=== PATIENT | female | born 1930 | race Caucasian/White ===

== ENCOUNTER 2018-04-12 10:53 | Inpatient (IN) | payer MEDICARE ==
[2018-04-12] VITALS (28 sets, daily range): BP systolic 82–138; BP diastolic 30–53
[~2018-04-12] VITALS: Ht 152.4 cm; Wt 48.1 kg
[~2018-04-12 10:53] MED LIST: ACET-2605 GT; ACET-868 GT; AMIN30LI2 PO; AMLO5TAB4 GT; ASCO500T9 PO; ASPI-1152 PO; BISA10SU8 RC; ENOX40DI SQ; FAMO-130 GT; FLUC200T PO; GUAI600T53 PO; LACT-209 GT; LEVO25TA7 PO; MAGN400O6 PO; METO5SOL2 GT; MICO45CR11 VG; MULT-447 GT; NA P133E RC; RISP0.253 GT; RIVA1.5C7 PO; SENN-168 GT; ZINC220C8 GT
[2018-04-12] MEDS ORDERED: ACETAMINOPHEN 650 MG/SUPP.RECT RC ONE ×2 (11:01→11:30)
[2018-04-12 11:27] LABS: BASOPHILS # (AUTO) 0.2 /CMM (0.0-0.2); BASOPHILS % (AUTO) 0.6 % (0.0-2.0); EOSINOPHILS % (AUTO) 0.1 % (0.0-6.0); HEMATOCRIT 30 % (33-45); HEMOGLOBIN 9.8 g/dL (11.5-14.8); LYMPHOCYTES # (AUTO) 0.3 /CMM (0.8-4.8); LYMPHOCYTES % (AUTO) 1.1 % (20.0-44.0); MEAN CORPUSCULAR HGB CONC 32 g/dl (31.0-36.0); MEAN CORPUSCULAR VOLUME 84 fL (82-100); MONOCYTES # (AUTO) 1.5 /CMM (0.1-1.30); MONOCYTES % (AUTO) 5.4 % (2.0-12.0); NEUTROPHILS # (AUTO) 26.4 /CMM (1.8-8.9); NEUTROPHILS % (AUTO) 92.8 % (43.0-81.0); PLATELET COUNT (AUTO) 617 /CMM (150-450); RED BLOOD CELL COUNT(AUTO) 3.63 MIL/uL (4.0-5.2); WHITE BLOOD COUNT (AUTO) 28.4 K/uL (4.3-11.0)
[2018-04-12] MEDS ORDERED: ALBUTEROL FS 2.5 MG/3 ML VIAL.NEB CONTNEB ONE (11:30)
[2018-04-12] MEDS ORDERED: IV NS 0.9% 1,000 ML BAG IV ONE ×2 (11:30)
[2018-04-12] MEDS ORDERED: CEFTRIAXONE 1GM BAG (ER ONLY) 50 ML IV ONE ×2 (11:30→11:38)
[2018-04-12] MEDS ORDERED: LORAZEPAM INJ 2 MG/ML VIAL IV ONE ×2 (11:30→12:00)
[2018-04-12] MEDS ORDERED: ALBUTEROL FS 2.5 MG/0.5 ML VIAL.NEB ONE (11:32)
[2018-04-12 11:37] LABS: CALCIUM, SERUM 8.4 mg/dL (8.5-10.1); CARBON DIOXIDE 27 mmol/L (21-32); CHLORIDE 102 mmol/L (98-107); CREATININE 0.9 mg/dL (0.6-1.3); GLUCOSE 137 mg/dL (74-106); POTASSIUM 4.4 mmol/L (3.5-5.1); SODIUM SERUM 138 mmol/L (136-145); UREA NITROGEN, BLOOD 34 mg/dL (7-18)
[2018-04-12] MEDS ORDERED: LORAZEPAM INJ 2 MG/ML VIAL ONE ×2 (11:39→11:48)
[2018-04-12 11:43] LABS: ALANINE AMINOTRANSFERASE 26 U/L (12-78); ALBUMIN 2.7 g/dL (3.4-5.0); ALKALINE PHOSPHATASE 109 U/L (46-116); ASPARTATE AMINOTRANSFERASE 24 U/L (15-37); BILIRUBIN,DIRECT 0.1 mg/dL (0.0-0.2); BILIRUBIN,TOTAL 0.4 mg/dL (0.2-1.0); TOTAL PROTEIN, SERUM 7.1 g/dL (6.4-8.2)
[2018-04-12 11:47] LABS: APPEARANCE,URINE Clear (CLEAR); BILIRUBIN,URINE Negative (NEGATIVE); BLOOD, URINE Small Ery/uL (NEGATIVE); COLOR,URINE Yellow (YELLOW); KETONES,URINE Negative (NEGATIVE); LEUKOCYTE ESTERASE ,URINE Small (NEGATIVE); NITRITE, URINE Negative (NEGATIVE); PH,URINE 7.5 (5.0-8.0); PROTEIN,URINE 30 mg/dl (NEGATIVE); UGLUCOSE Negative (NEGATIVE); UROBILINOGEN,URINE 0.2 EU/dL (0.2)
[2018-04-12 11:49] LABS: BACTERIA,URINE Few /HPF (None Seen); SQUAMOUS EPITHELIAL CELL,UR Few /HPF (None Seen)
[2018-04-12 12:04] LABS: ABG BASE EXCESS -2.6 mmol/L; ABG OXYGEN SATURATION 94.4 % (92.0-98.5); ABG PCO2 31.1 mmHg (35.0-45.0); ABG PH 7.446 (7.350-7.450); AaDO2 170.4 mmHg; MetHb 0.8 % (0.0-1.5); O2Hb 93.6 % (94.0-97.0); SITE, ABG Left Brachial; VENT MODE, BG 5 L/M VIA HHN
[2018-04-12] MEDS ORDERED: FERR325T23 GT (12:11)
[2018-04-12] MEDS ORDERED: CRAN3875 GT (12:11)
[2018-04-12] MEDS ORDERED: LEVO50TA8 GT (12:15)
--- NOTE | 2018-04-12 12:22 | NUR ---
PT BROUGHT IN FROM ASSISTED BY PARAMEDICS FOR RESPIRATORY DISTRES AND AMS. PT HAS 18G IN LEFT FORE ARM AND 20G IN RIGHT FORE ARM ALL LABS DRAWN AND SENT INCLUDING URINE AND BLOOD CULTURES WITH TYPE AND SCREEN. PT HAD 16 FR LANG PLACED WITH 50 CC CLEAR YELLOW URINE INITIAL OUTPUT. PT GIVEN 4 LITERS OF NORMAL SALINE COMPLETED AND ABG DONE WELL. CURRENTLY PT ON NRM AT 15 LPM. ROLLER PICKER 96 NSR. POCT 190 IN FIELD. PT WAS TACHYCARDIIC INITIALLY 140'S RESPIRATION ARE GASPING WITH ASSORY MUSCLE USAGE . NOTIFIED OF PT RESPIRATORY STATUS.
[2018-04-12] MEDS ORDERED: LACT-96 GT (12:31)
--- NOTE | 2018-04-12 12:32 | NUR ---
PT ROOM AIR SATURATION WAS 80% AND DECREASING IMPROVED AFTER NRM PLACED TO 98%.
--- NOTE | 2018-04-12 12:43 | NUR ---
CALLED EPIC TO [facility]ITAL[facility]
[2018-04-12] MEDS ORDERED: methylPREDNISolone SOD SUCC 125 MG/2ML VIAL ONE (13:02)
--- NOTE | 2018-04-12 13:04 | NUR ---
LANG RECHECKED URINARY OUT PUT TOTAL SINCE ADMISSION IS 200ML PT GOING TO CT SCANN RN REPORT GIVEN TO SUDHEER PT ADMITTED TO ROOM 116 ADMITTING MD GUAN
[2018-04-12] MEDS ORDERED: ACETAMINOPHEN 325 MG TABLET MC PRN (13:30)
[2018-04-12] MEDS ORDERED: methylPREDNISolone SOD SUCC 125 MG/2ML VIAL IV ONE (13:30)
[2018-04-12] MEDS ORDERED: ONDANSETRON HCL/PF 4 MG/2 ML VIAL IVP PRN (13:30)
[2018-04-12] MEDS ORDERED: ZOLPIDEM TARTRATE 5 MG TABLET PO PRN (13:30)
[2018-04-12] MEDS ORDERED: NA PHOS,M-B/NA PHOS,DI-BA 1 EA ENEMA RC PRN (13:30)
[2018-04-12] MEDS ORDERED: MAG HYDROX/AL HYDROX/SIMETH 30 ML UDC PO PRN (13:30)
[2018-04-12] MEDS ORDERED: Z GUARD REMEDY 2 OZ OINT TP PRN (13:30)
[2018-04-12] MEDS ORDERED: MAGNESIUM HYDROXIDE 30 ML UDC PO PRN ×2 (13:30)
[2018-04-12] MEDS ORDERED: BISACODYL SUPP (10 MG) 10 MG/SUPP.RECT SUPP.RECT RC PRN (13:30)
--- NOTE | 2018-04-12 13:30 | NUR ---
RECEIVED REPORT FORM TOSIN RECEIVED PATIENT ON 15 L NONREBREATHER MASK SINUS RHYTHM ON TELE MONITOR WITH HR OF 90S
[2018-04-12] MEDS: IV NS 0.9% 1,000 ML IV PRN (13:49)
[2018-04-12 13:59] LABS: ABG BASE EXCESS -5.6 mmol/L; ABG OXYGEN SATURATION 98.8 % (92.0-98.5); ABG PCO2 32.1 mmHg (35.0-45.0); ABG PH 7.385 (7.350-7.450); AaDO2 365.9 mmHg; COHb 0.1 % (0.5-1.5); MetHb 1.2 % (0.0-1.5); O2Hb 97.5 % (94.0-97.0); SITE, ABG Right Brachial; VENT MODE, BG NON REBREATHER
[2018-04-12] MEDS ORDERED: ACETAMINOPHEN 650 MG/20.3 ML UDC GT PRN (14:00)
--- NOTE | 2018-04-12 14:00 | NUR ---
RECEIVED PATIENT FROM ER [id number] PATIENT ON 15 L NONREBREATHER MASK. NONLABORED BREATHING NOTED WELL PERIODS OF APNEA WITH RR RANGING FROM 9-12 SPO2 AT 100% PATIENT NONAROUSABLE TO NAME, TOUCH, OR LIGHT PAIN PUPILS REACTIVE TO LIGHT PATIENT WITHDRAWING LOWER EXTREMITIES TO DEEP PAIN
[2018-04-12] MEDS ORDERED: FEE PK DOSING 1 MIN EA MC ONE (14:18)
--- NOTE | 2018-04-12 14:28 | NUR ---
PER DR BERMUDEZ, TRANSFER TO ICU FOR BP MONITORING DR BERMUDEZ NOTIFIED OF BP TREND WELL IV FLUIDS GIVEN TO PATIENT SINCE ARRIVAL TO UNIT WELL IV FLUIDS ADMINISTERED IN ER
--- NOTE | 2018-04-12 14:50 | NUR ---
AT: 1350 -BOLUS OF NS AT 250 ML/HOUR INITIATED. SEE IV SPREADSHEET WELL VS SPREADSHEET DR DELEON AND DR BERMUDEZ NOTIFIED
--- NOTE | 2018-04-12 15:00 | NUR ---
PATIENT TRANSFERRED TO ICU WITH ALL BELONGINGS PER ORDERS PATIENT SINUS RYTHM ON TELE MONITOR THROUGHOUT TRANSFER REPORT GIVEN TO DENISE HUERTA
[2018-04-12] MEDS: PIPERACILLIN /TAZOBACTAM 3.375 G in IV D5W 100 ML IV SCH ×2 (16:25→23:00)
[2018-04-12] MEDS: VANCOMYCIN 0.75 GM in IV D5W 250 ML IV SCH (16:25)
[2018-04-12] MEDS ORDERED: METOCLOPRAMIDE HCL 10 MG/10 ML UDC GT SCH (18:00)
[2018-04-12] MEDS ORDERED: PIPERACILLIN /TAZOBACTAM 4.5 G in IV D5W 50 ML IV SCH (18:00)
--- NOTE | 2018-04-12 18:45 | NUR ---
RN ADMITTING NOTES: 1430H Rec'd pt from Betzy HUERTA. Pt transferred via bed accompanied by CN. Per report, pt has been hypotensive at 80's. Pt is lethargic. On NC at 2lpm, sating at 98%. On telemonitor, SR. Has GT, clamped at this time, noted gastric residual 5cc. Wound photos taken & placed in the chart, ordered wound consult & KCI mattress. Has R hand G20 & LFA G18, patent & intact w/ no s/sx of infection/infiltration. BRADLEY Banks came & inserted MACY Midline as per Dr. Gaona. Has FC patent & intact. Pt seen & examined by Dr. Ruano & Martha, HUMAN RESOURCES PSYCHOLOGIST. Re: diet, Dr. Gaona was notified that pt has GT & still is lethargic, per MD may order NPO except meds. Belongings at bedside. Pt kept well rested. Needs attended. Bed kept low & in locked pos. Call light w/in reach. WIll endorse to PM RN for ARNOL.
--- NOTE | 2018-04-12 19:30 | NUR ---
Received report from day shift RN patient on semi fowlers position lethargic responsive only to painful stimuli by grimacing and withdrawal.SR with BBB and occasional PAC's.Normotensive. Afebrile.Respiration even and unlabored.O2 3L NC on with SPO2 100%.Maintained on NPO status with GT clamped.No residual noted.Abdomen soft BS active.FC to gravity drainage draining clear yellow urine.IVF NS infusing to MACY Midline site intact.Turned and repositioned.No distress noted.
[2018-04-12] MEDS: IPRATROPIUM NEB FS 0.5 MG/2.5 ML AMPUL.NEB NEB SCH (19:36)
[2018-04-12] MEDS: ALBUTEROL HALF STRENGTH 1.25 MG/3 ML VIAL.NEB NEB SCH (19:37)
[2018-04-12] MEDS: RIVASTIGMINE TARTRATE 1.5 MG CAPSULE PO SCH (21:00)
[2018-04-12] MEDS: SENNOSIDES 8.6 MG TABLET GT SCH (21:30)
--- NOTE | 2018-04-12 22:00 | NUR ---
Patient incontinent of BM soft brown.Perineal care done.Bed bath done and complete linens changed.KCI mattress applied.Turned and repositioned to comfort offloading pressure points. Patient remains lethargic.
[2018-04-13] VITALS (21 sets, daily range): BP systolic 92–139; BP diastolic 35–84
--- NOTE | 2018-04-13 | NUR ---
VS stable.No distress noted and changes of neuro status.Continue monitoring.
[2018-04-13] MEDS: IPRATROPIUM NEB FS 0.5 MG/2.5 ML AMPUL.NEB NEB SCH ×4 (01:10→19:55)
[2018-04-13] MEDS: ALBUTEROL HALF STRENGTH 1.25 MG/3 ML VIAL.NEB NEB SCH ×4 (01:10→19:55)
[2018-04-13] MEDS: IV NS 0.9% 1,000 ML IV PRN ×2 (01:57→16:16)
--- NOTE | 2018-04-13 04:00 | NUR ---
AM care done.VS stable.Turned and repositioned.
[2018-04-13 04:30] LABS: HEMATOCRIT 24 % (33-45); HEMOGLOBIN 7.6 g/dL (11.5-14.8); LYMPHOCYTES # (AUTO) 0.3 /CMM (0.8-4.8); LYMPHOCYTES % (AUTO) 1.3 % (20.0-44.0); MEAN CORPUSCULAR HGB CONC 32 g/dl (31.0-36.0); MEAN CORPUSCULAR VOLUME 85 fL (82-100); MONOCYTES # (AUTO) 0.3 /CMM (0.1-1.30); MONOCYTES % (AUTO) 1.6 % (2.0-12.0); NEUTROPHILS # (AUTO) 21.8 /CMM (1.8-8.9); NEUTROPHILS % (AUTO) 97.1 % (43.0-81.0); PLATELET COUNT (AUTO) 435 /CMM (150-450); RED BLOOD CELL COUNT(AUTO) 2.82 MIL/uL (4.0-5.2); WHITE BLOOD COUNT (AUTO) 22.5 K/uL (4.3-11.0)
[2018-04-13 05:03] LABS: ALANINE AMINOTRANSFERASE 18 U/L (12-78); ALKALINE PHOSPHATASE 78 U/L (46-116); ASPARTATE AMINOTRANSFERASE 19 U/L (15-37); BILIRUBIN,TOTAL 0.3 mg/dL (0.2-1.0); CALCIUM, SERUM 7.6 mg/dL (8.5-10.1); CARBON DIOXIDE 23 mmol/L (21-32); CHLORIDE 108 mmol/L (98-107); CREATININE 0.8 mg/dL (0.6-1.3); GLUCOSE 141 mg/dL (74-106); MAGNESIUM 1.8 mg/dL (1.8-2.4); PHOSPHORUS 3.9 mg/dL (2.5-4.9); POTASSIUM 4.1 mmol/L (3.5-5.1); SODIUM SERUM 141 mmol/L (136-145); TOTAL PROTEIN, SERUM 5.8 g/dL (6.4-8.2); UREA NITROGEN, BLOOD 28 mg/dL (7-18)
[2018-04-13 05:08] LABS: CHOLESTEROL 116 mg/dL (<200); HDL CHOLESTEROL 59 mg/dL (40-60); LDL 56 mg/dL (0-99); TRIGLYCERIDES 49 mg/dL (30-150)
--- NOTE | 2018-04-13 06:00 | NUR ---
Patient now awake but not following commands non verbal.Safety precautions maintained with side rails up x 3.Bed locked,low and alarm on.Call light at bedside within easy reach. No distress noted.VS remains stable.IVF infusing well.
[2018-04-13] MEDS: PIPERACILLIN /TAZOBACTAM 3.375 G in IV D5W 100 ML IV SCH ×3 (07:01→23:22)
--- NOTE | 2018-04-13 07:30 | NUR ---
[facility] RN NOTE: RECEIVED PATIENT IN BED, ASLEEP, AND LETHARGIC. ABLE TO OPEN EYES WITH TACTILE STIMULI. RESPIRATION EVEN AND UNLABORED ON O2 3L/MIN VIA NC SATURATING 97%. NO FACIAL GRIMACING NOTED. HOB ELEVATED. NPO EXCEPT MEDS GIVEN THRU GT. BED ALARMED AND LOCKED AT ALL TIMES. CALL LIGHT WITHIN REACH. NEEDS ANTICIPATED.
[2018-04-13] MEDS: LEVOTHYROXINE SODIUM 50 MCG TABLET GT SCH (07:55)
[2018-04-13] MEDS: VANCOMYCIN 0.75 GM in IV D5W 250 ML IV SCH (08:35)
[2018-04-13] MEDS: FERROUS SULFATE (325 MG) 325 MG/TAB TABLET GT SCH (09:19)
[2018-04-13] MEDS: AMLODIPINE BESYLATE 5 MG TABLET GT SCH (09:19)
[2018-04-13] MEDS: ENOXAPARIN SODIUM 40 MG/0.4 ML DISP.SYRIN SQ SCH (09:20)
[2018-04-13] MEDS: RIVASTIGMINE TARTRATE 1.5 MG CAPSULE PO SCH ×2 (09:26→21:36)
[2018-04-13 10:09] LABS: ABG OXYGEN SATURATION 94.7 % (92.0-98.5); ABG PCO2 27.6 mmHg (35.0-45.0); ABG PH 7.459 (7.350-7.450); ABG PO2 77.6 mmHg (75.0-100.0); AaDO2 89.5 mmHg; COHb 0.3 % (0.5-1.5); MetHb 0.8 % (0.0-1.5); O2Hb 93.7 % (94.0-97.0); SITE, ABG Right Radial; VENT MODE, BG NASAL CANULA
--- NOTE | 2018-04-13 10:13 | NUR ---
WOUND CARE CONSULT: PT FOLLOWED BY PLASTIC SURGERY TEAM FOR WOUNDS. DEFER TO SURGICAL TEAM FOR WOUND TREATMENT PLAN. ALL PRESSURE ULCER PREVENTION MEASURES IN PLACE AND DISCUSSED WITH NURSING STAFF. PT ON FIRST STEP FANY LOW AIRLOSS MATTRESS. WILL SEE PRN. CURRENT JESSI SCORE IS 11.
--- NOTE | 2018-04-13 11:15 | NUR ---
[facility] RN NOTE: CALLED AND SPOKE WITH DR. BERMUDEZ AND MADE HIM AWARE THAT THE PATIENT WAS AWAKE NOW, BUT VERY CONFUSED. TRYING TO GET OUT OF THE BED AND WAS STARTING TO PULL OUT HER IV LINE. THE PATIENT WAS UNABLE TO FOLLOW SIMPLE COMMANDS DESPITE HIDING LINES. MD WITH ORDER TO PUT A (B) SOFT WRIST RESTRAINT. ORDER, NOTED AND CARRIED OUT.
--- NOTE | 2018-04-13 13:20 | NUR ---
LALA RN NOTE: CALLED AND SPOKE WITH LALA DE LA PAZ RN AND REPORT WAS GIVEN RE: THE PATIENT'S CONTINUITY OF CARE. PATIENT WILL BE TRANSFERRED TO [facility] ROOM 119-1 WITH ALL HER BELONGINGS.
--- NOTE | 2018-04-13 15:41 | NUR ---
Patient resides at [facility] [phone]. She requires max assist with adl's. She is confined to bed and chair most of the time. Current dc plan is to return to [facility]. Addendum: 04/13/18 at 1542 by ISMA MANZO RN Amended: Links added.
--- NOTE | 2018-04-13 17:00 | NUR ---
RN NOTE PER DR AIDAN RODRIGUEZ TO START FEEDING, BUT NO FORMULA SPECIFIED, WILL FOLLOW UP WITH BLADE WORKER REGARDING FEEDING.
--- NOTE | 2018-04-13 19:33 | NUR ---
INITIAL ASSESSMENT.RECEIVED THE PT REST ON THE BED. AWAKE, ALERT. LETHARGIC,CONFUSED, DOES NOT FOLLOW COMMANDS. OXYGEN 3L VIA NASAL CANNULA. SAT 98%. BUTTONHOLE MAKER HAND SHOWING S TACH. IV RT UPPER ARM MID LINE. IVF NS 75ML/H. GT CLAMPED. FC PATENT. WILL CONTINUE TO MONITOR VITALS.
[2018-04-13] MEDS: SENNOSIDES 8.6 MG TABLET GT SCH (21:36)
[2018-04-13] MEDS: MUPIROCIN OINT 2% 22 GM TUBE SCH (21:37)
[2018-04-14] VITALS (32 sets, daily range): BP systolic 98–206; BP diastolic 47–193
[2018-04-14] MEDS: IPRATROPIUM NEB FS 0.5 MG/2.5 ML AMPUL.NEB NEB SCH ×4 (00:24→19:37)
[2018-04-14] MEDS: ALBUTEROL HALF STRENGTH 1.25 MG/3 ML VIAL.NEB NEB SCH ×4 (00:24→19:37)
[2018-04-14] MEDS: VANCOMYCIN 0.75 GM in IV D5W 250 ML IV SCH ×2 (02:51→22:13)
--- NOTE | 2018-04-14 03:04 | NUR ---
AM CARE. ORAL CARE, BED BATH GIVEN. LINEN CHANGED. REMAINING SAME OXYGEN VIA NASAL CANNULA . SAT 90%^. FILE SYSTEM INSTALLER SHOWING S TACH. IV RT UPPER ARM MID LINE IVF NS 75ML/H. GT CLAMPED. FC PATENT URINE DRAINING. JOSE SOFT WRIST RESTRAINT CHECKED AND RELEASED, NO INJURY OR REDNESS NOTED. HOB ELEVATED. GT CLAMPED. PT IS NPO. TURN AND REPOSITION Q2H. WILL CONTINUE TO MONITOR VITALS.
[2018-04-14] MEDS: IV NS 0.9% 1,000 ML IV PRN (03:53)
[2018-04-14] MEDS: PIPERACILLIN /TAZOBACTAM 3.375 G in IV D5W 100 ML IV SCH (06:25)
[2018-04-14 06:46] LABS: CARBON DIOXIDE 24 mmol/L (21-32); CHLORIDE 109 mmol/L (98-107); CREATININE 0.8 mg/dL (0.6-1.3); GLUCOSE 98 mg/dL (74-106); POTASSIUM 2.9 mmol/L (3.5-5.1); SODIUM SERUM 143 mmol/L (136-145); UREA NITROGEN, BLOOD 18 mg/dL (7-18)
[2018-04-14 08:47] LABS: BASOPHILS # (AUTO) 0.1 /CMM (0.0-0.2); BASOPHILS % (AUTO) 0.3 % (0.0-2.0); HEMATOCRIT 26 % (33-45); HEMOGLOBIN 8.2 g/dL (11.5-14.8); LYMPHOCYTES # (AUTO) 0.4 /CMM (0.8-4.8); LYMPHOCYTES % (AUTO) 2.6 % (20.0-44.0); MEAN CORPUSCULAR HGB CONC 32 g/dl (31.0-36.0); MEAN CORPUSCULAR VOLUME 85 fL (82-100); NEUTROPHILS # (AUTO) 15.5 /CMM (1.8-8.9); NEUTROPHILS % (AUTO) 91.1 % (43.0-81.0); PLATELET COUNT (AUTO) 467 /CMM (150-450); RED BLOOD CELL COUNT(AUTO) 3.01 MIL/uL (4.0-5.2)
[2018-04-14 08:57] LABS: CALCIUM, SERUM 8.5 mg/dL (8.5-10.1); CARBON DIOXIDE 24 mmol/L (21-32); CHLORIDE 109 mmol/L (98-107); CREATININE 0.9 mg/dL (0.6-1.3); GLUCOSE 95 mg/dL (74-106); POTASSIUM 3.2 mmol/L (3.5-5.1); SODIUM SERUM 144 mmol/L (136-145); UREA NITROGEN, BLOOD 22 mg/dL (7-18)
[2018-04-14 09:48] LABS: ABG BASE EXCESS -4.1 mmol/L; ABG OXYGEN SATURATION 91.7 % (92.0-98.5); ABG PCO2 25.2 mmHg (35.0-45.0); ABG PH 7.479 (7.350-7.450); ABG PO2 62.1 mmHg (75.0-100.0); COHb 0.2 % (0.5-1.5); MetHb 0.7 % (0.0-1.5); O2Hb 90.9 % (94.0-97.0); SITE, ABG Left Radial; VENT MODE, BG SIMPLE MASK
[2018-04-14] MEDS: RIVASTIGMINE TARTRATE 1.5 MG CAPSULE PO SCH ×2 (10:29→21:31)
[2018-04-14] MEDS: ENOXAPARIN SODIUM 40 MG/0.4 ML DISP.SYRIN SQ SCH (10:29)
[2018-04-14] MEDS: FERROUS SULFATE (325 MG) 325 MG/TAB TABLET GT SCH (10:30)
[2018-04-14] MEDS: AMLODIPINE BESYLATE 5 MG TABLET GT SCH (10:31)
[2018-04-14] MEDS: LEVOTHYROXINE SODIUM 50 MCG TABLET GT SCH (10:31)
[2018-04-14] MEDS: MUPIROCIN OINT 2% 22 GM TUBE SCH ×2 (10:32→21:32)
--- NOTE | 2018-04-14 11:25 | NUR ---
SHOW CARD LETTERER ALL NEEDS ALL NEEDS ATTENDED STILL WITH GREGORY NOTED ,WILL CONT ON IVF ORDERED
--- NOTE | 2018-04-14 11:25 | NUR ---
DECORATIVE ENGRAVER APPRENTICE NOTE RECEIVED PATIENT FROM [facility] PATIENT ALERT WITH CONFUSION , PLACED ON TELE ST 107 BP 137/86. WITH SOFT BILATERAL RESTRAIN ORDERED . WITH LANG CATH TO GRAVITY WITH YELLOW AMER COLOR, ON 10 L BY SIMPLE MASK SAT 92% BOTH LEGS WITH DVT PUMPS , CALLED PHARMACY NOTIFIED THAT K 3.2 , STATED THAT WILL REPLACE SOON WILL, , BED IN LOWEST AND LOCKED POSITION
--- NOTE | 2018-04-14 11:30 | NUR ---
SUPERVISOR BLAST FURNACE NOTE PATIENT NOTED WITH LABORED BREATHING, RR 24. RESTLESS, CONTINUOUSLY ATTEMPTING TO PULL LINES AND TUBING. CLEANED AND CHANGED AND ALL NEEDS ATTENDED TO. ON SIMPLE MASK AT 10LPM BY RT. AWARE. SPO2 93%. HEART RATE IN THE LOW ONE HUNDREDS. SINUS TACHYCARDIA ON THE MONITOR, HEART RATE RANGING BETWEEN 100-120. RECEIVED AN ORDER FROM DR. DELEON FOR ABG'S. REPORTED ABG'S TO MD AND RECEIVED AN ORDER TO TRANSFER PATIENT TO ICU. TRANSFERRED PATIENT TO ICU AND GAVE BEDSIDE REPORT TO EARTHMOVING LABOURER JAYLIN.
[2018-04-14] MEDS ORDERED: POTASSIUM CHLORIDE 20 MEQ TAB.PRT.SR PO SCH (12:30)
[2018-04-14] MEDS: POTASSIUM CHLORIDE 20 MEQ TAB.PRT.SR PO SCH ×2 (12:55→13:56)
--- NOTE | 2018-04-14 13:52 | NUR ---
DIRECTOR OF CONSERVATION NOTE CALLED TO DR NEVILLE NOTIFIED THAT BP 183/116 ORDERED NITRO PASTE BID , ORDER , CARRIED OUT
--- NOTE | 2018-04-14 14:00 | NUR ---
CHAIN HOIST OPERATOR NOTE ON BREATHING TX BY RT
[2018-04-14] MEDS ORDERED: MEROPENEM 500 MG in IV NS 0.9% 50 ML IV SCH (14:30)
[2018-04-14] MEDS: NITROGLYCERIN 30 GM TUBE TP SCH (15:38)
--- NOTE | 2018-04-14 15:44 | NUR ---
ASSOCIATE DATA SCIENTIST NOTE NASOPHARYNGEAL SUCTION DONE BY RT ,OBTAIN MODERATE AMT OF MUSES , KEEP CLEAN DRY, PLACED ON NONREBREATHER MASK 15L SAT NOW SAT 91% ,SEEN BY DR DELEON AWARE PF PATIENT CONDITION , PER DR DELEON IVF WAS D\GUICHO, ALSO PER DR DELEON NO SEDATIVE AT THIS TIME ,AWARE THAT PATIENT IS VERY RESTLESS AND AGITATED ,WILL CONT TO MONITOR CLOSELY
[2018-04-14] MEDS: MEROPENEM 500 MG in IV NS 0.9% 100 ML IV SCH ×2 (15:58→23:17)
[2018-04-14] MEDS: ACETYLCYSTEINE 10% SOLN 400 MG/4 ML VIAL NEB SCH (15:59)
--- NOTE | 2018-04-14 16:09 | NUR ---
BUS OPERATOR NOTE SEEN BY TIM RN MEDICAL TECHNICIANS AND ON BREATHINGS TX BY RT, MERREM STARTED TO INFUSE ORDERED, WILL CONT TO MONITOR CLOSELY
--- NOTE | 2018-04-14 17:00 | NUR ---
STRINGED INSTRUMENT REPAIRER NOTE PATIENT ON NONREBREATHER MASK AT THIS TIME, SAT 96% BP1 , WILL CONT TO MONITOR CLOSELY Addendum: 04/14/18 at 1849 by JAYLIN LING RN BP1
[2018-04-14] MEDS: LACTOBACILLUS RHAMNOSUS GG 1 EACH CAP.SPRINK PO SCH (17:29)
--- NOTE | 2018-04-14 18:32 | NUR ---
PREMISES TECHNICIAN NOTE NOTED SMALL AMT OF COFFEE GROUND RESIDUAL , CALLED TO DR BERMUDEZ , LEFT A MESSAGE WILL AWAIT FOR RETURN CALL
--- NOTE | 2018-04-14 18:44 | NUR ---
WATER TREATMENT PLANT OPERATOR NOTE RT AT BEDSIDE ,CHANGED TO SIMPLE MASK 10 L OF 02 , WILL CONT TO MONITOR CLOSELY
--- NOTE | 2018-04-14 19:18 | NUR ---
LOCAL INTERMODAL TRUCK DRIVER NOTE ENDORSED TO RN NEXT SHIFT ABOUT RESIDUAL AND F\U WITH
[2018-04-14] MEDS: HYDROCODONE/APAP 5/325MG 1 EACH TABLET PO PRN (20:18)
[2018-04-14] MEDS: SENNOSIDES 8.6 MG TABLET GT SCH (21:31)
[2018-04-14] MEDS ORDERED: VANCOMYCIN 1 GM VIAL ONE (22:09)
[2018-04-15] VITALS (33 sets, daily range): BP systolic 117–152; BP diastolic 42–75
[2018-04-15] MEDS: ACETYLCYSTEINE 10% SOLN 400 MG/4 ML VIAL NEB SCH ×4 (00:29→23:08)
[2018-04-15] MEDS: ALBUTEROL HALF STRENGTH 1.25 MG/3 ML VIAL.NEB NEB SCH ×4 (00:30→19:36)
[2018-04-15] MEDS: IPRATROPIUM NEB FS 0.5 MG/2.5 ML AMPUL.NEB NEB SCH ×4 (00:31→19:35)
[2018-04-15] MEDS: NITROGLYCERIN 30 GM TUBE TP SCH ×2 (02:20→14:25)
[2018-04-15] MEDS: HYDROCODONE/APAP 5/325MG 1 EACH TABLET PO PRN (02:28)
[2018-04-15 04:37] LABS: BASOPHILS % (AUTO) 0.2 % (0.0-2.0); HEMATOCRIT 23 % (33-45); HEMOGLOBIN 7.5 g/dL (11.5-14.8); LYMPHOCYTES # (AUTO) 0.5 /CMM (0.8-4.8); LYMPHOCYTES % (AUTO) 3.2 % (20.0-44.0); MEAN CORPUSCULAR HGB CONC 32 g/dl (31.0-36.0); MEAN CORPUSCULAR VOLUME 83 fL (82-100); MONOCYTES # (AUTO) 0.9 /CMM (0.1-1.30); MONOCYTES % (AUTO) 5.7 % (2.0-12.0); NEUTROPHILS # (AUTO) 14.5 /CMM (1.8-8.9); NEUTROPHILS % (AUTO) 90.9 % (43.0-81.0); PLATELET COUNT (AUTO) 389 /CMM (150-450); RED BLOOD CELL COUNT(AUTO) 2.83 MIL/uL (4.0-5.2); WHITE BLOOD COUNT (AUTO) 15.9 K/uL (4.3-11.0)
[2018-04-15 05:15] LABS: CARBON DIOXIDE 23 mmol/L (21-32); CHLORIDE 106 mmol/L (98-107); CREATININE 0.9 mg/dL (0.6-1.3); GLUCOSE 84 mg/dL (74-106); MAGNESIUM 1.5 mg/dL (1.8-2.4); PHOSPHORUS 2.6 mg/dL (2.5-4.9); SODIUM SERUM 142 mmol/L (136-145); UREA NITROGEN, BLOOD 17 mg/dL (7-18)
[2018-04-15 05:28] LABS: POTASSIUM 2.8 mmol/L (3.5-5.1)
[2018-04-15] MEDS ORDERED: POTASSIUM CHLORIDE 20 MEQ TAB.PRT.SR PO ONE (06:30)
[2018-04-15] MEDS: LEVOTHYROXINE SODIUM 50 MCG TABLET GT SCH (06:52)
--- NOTE | 2018-04-15 07:10 | NUR ---
RN INITIAL NOTES RECEIVED PT A/O TO NAME AND TOUCH. ON 02 AT 8LPM VIA MASK. HOB ELEVATED. NO SOB NOTED. NO SIGNS OF PAIN NOTED. MACY MIDLINE IN PLACE. GT CLAMPED. FC IN PLACE. NO HEMATURIA NOTED. PT REPOSITIONED. PT CLEAN AND DRY. WILL MONITOR.
--- NOTE | 2018-04-15 07:28 | NUR ---
FRAMING MILL SUPERVISOR NOTE PT REMAINED STABLE DURING SHIFT. NO ACUTE DISTRESS NOTED. POTASSIUM 2.8 THIS AM. SPOKE WITH ROSANNA DIAZ GROUP TESTER WITH ORDERS FOR 40 MEQ KCL VIA GT X1 NOW AND DO BMP IN HOUR TO RECHECK POTASSIUM. ORDERS NOTED AND CARRIED OUT. WILL ENDORSE TO NEXT SHIFT FOR CONTINUITY OF CARE.
[2018-04-15] MEDS: RIVASTIGMINE TARTRATE 1.5 MG CAPSULE PO SCH ×2 (08:14→21:04)
[2018-04-15] MEDS: LACTOBACILLUS RHAMNOSUS GG 1 EACH CAP.SPRINK PO SCH ×2 (08:14→16:23)
[2018-04-15] MEDS: FERROUS SULFATE (325 MG) 325 MG/TAB TABLET GT SCH (08:14)
[2018-04-15] MEDS: AMLODIPINE BESYLATE 5 MG TABLET GT SCH (08:14)
[2018-04-15] MEDS: MEROPENEM 500 MG in IV NS 0.9% 100 ML IV SCH ×2 (08:14→16:22)
[2018-04-15] MEDS: MUPIROCIN OINT 2% 22 GM TUBE SCH ×2 (08:15→21:05)
[2018-04-15] MEDS: ENOXAPARIN SODIUM 40 MG/0.4 ML DISP.SYRIN SQ SCH (08:16)
[2018-04-15 09:03] LABS: CARBON DIOXIDE 25 mmol/L (21-32); CHLORIDE 106 mmol/L (98-107); CREATININE 0.7 mg/dL (0.6-1.3); GLUCOSE 71 mg/dL (74-106); SODIUM SERUM 142 mmol/L (136-145); UREA NITROGEN, BLOOD 16 mg/dL (7-18)
[2018-04-15] MEDS: POTASSIUM CL. PREMIX PERIPHER. 50 ML IV SCH ×6 (09:33→14:31)
[2018-04-15] MEDS: Magnesium 1GM/D5W 100ML PREMIX 100 ML IV SCH ×2 (11:28→12:35)
--- NOTE | 2018-04-15 14:00 | NUR ---
RN NOTES 1200 SEEN AND EXAMINED BY DR SHARMA. AWARE OF PT'S CURRENT STATUS. PT RESPONDS TO VERBAL AND TACTILE STIMULI. ON 02 VIA NC AT 5LPM. HOB ELEVATED. NO SOB NOTED. NO SIGNS OF PAIN NOTED. AWARE OF CURRENT LAB VALUES AND CXR RESULT. WILL CONTINUE TO MONITOR 1300 SEEN AND EXAMINED BY DR DELEON. AWARE OF CURRENT LAB VALUES AND IMAGING STUDIES. PT TOLERATING 02 VIA NC AT 5LPM. KEPT HOB ELEVATED. NO SOB NOTED. WILL CONTINUE TO MONITOR
[2018-04-15] MEDS: VANCOMYCIN 0.75 GM in IV D5W 250 ML IV SCH (14:32)
--- NOTE | 2018-04-15 18:44 | NUR ---
RN CLOSING NOTES PT REMAINS STABLE. NO SIGNIFICANT CHANGE NOTED. TOLERATING 02 AT 5LPM VIA NC. NO SOB NOTED. KEPT CLEAN AND DRY. REPOSITIONED Q2. KEPT BLE ELEVATED. WILL ENDORSE FOR CONTINUITY OF CARE.
--- NOTE | 2018-04-15 19:35 | NUR ---
MAINTENANCE SERVICE SUPERVISOR NOTES RECEIVED PT ON BED. A/O X 1. SLEEPING. ON NASAL CANNULA 5LPM NO RESPIRATORY DISTRESS NOTED. ON TELE MONITOR SR. LANG CATH DRAINING YELLOW URINE. ON BILATERAL SOFT RESTRAINTS. GTUBE CLAMPED. IV ACCESS MACY MIDLINE PATENT AND INTACT. HEAD OF BED ELEVATED. SIDE RAILS UP. CALL LIGHT WITHIN REACH. BED ALARM ON. WILL CONTINUE TO MONITOR PT CLOSELY.
[2018-04-15] MEDS: SENNOSIDES 8.6 MG TABLET GT SCH (21:04)
[2018-04-15] MEDS: risperiDONE 0.25 MG TABLET PO SCH (21:04)
--- NOTE | 2018-04-15 21:26 | NUR ---
DYE OPERATOR NOTES PAGED DEPUTY CLERK FOR ORDERS REGARDING BLOOD SUGAR OF 56 REPEAT OF 61. ORDERED D50 STAT AND D5NS @ 50CC/HR . WILL MONITOR PT CLOSELY.
[2018-04-15] MEDS ORDERED: DEXTROSE 50%-WATER 50 ML DISP.SYRIN IVP ONE (21:30)
[2018-04-15] MEDS: IV D5/ 0.9% NACL 1,000 ML IV PRN (21:32)
[2018-04-16] VITALS (39 sets, daily range): BP systolic 104–202; BP diastolic 49–137
[2018-04-16] MEDS: MEROPENEM 500 MG in IV NS 0.9% 100 ML IV SCH ×4 (00:31→23:33)
[2018-04-16] MEDS: IPRATROPIUM NEB FS 0.5 MG/2.5 ML AMPUL.NEB NEB SCH ×4 (01:11→19:53)
[2018-04-16] MEDS: ALBUTEROL HALF STRENGTH 1.25 MG/3 ML VIAL.NEB NEB SCH ×4 (01:11→19:53)
[2018-04-16] MEDS: NITROGLYCERIN 30 GM TUBE TP SCH ×2 (02:25→14:03)
--- NOTE | 2018-04-16 06:06 | NUR ---
INTEGRITY MANAGER NOTES PT AGITATED. INFORMED MOUNTER FOR ORDERS. NO NEW ORDERS. WILL CONTINUE TO MONITOR PT CLOSELY.
[2018-04-16 06:10] LABS: BASOPHILS % (AUTO) 0.3 % (0.0-2.0); EOSINOPHILS % (AUTO) 0.2 % (0.0-6.0); HEMATOCRIT 28 % (33-45); HEMOGLOBIN 8.9 g/dL (11.5-14.8); LYMPHOCYTES # (AUTO) 0.6 /CMM (0.8-4.8); LYMPHOCYTES % (AUTO) 4.1 % (20.0-44.0); MEAN CORPUSCULAR HGB CONC 32 g/dl (31.0-36.0); MEAN CORPUSCULAR VOLUME 83 fL (82-100); MONOCYTES # (AUTO) 0.8 /CMM (0.1-1.30); MONOCYTES % (AUTO) 5.9 % (2.0-12.0); NEUTROPHILS # (AUTO) 11.9 /CMM (1.8-8.9); NEUTROPHILS % (AUTO) 89.5 % (43.0-81.0); PLATELET COUNT (AUTO) 430 /CMM (150-450); RED BLOOD CELL COUNT(AUTO) 3.33 MIL/uL (4.0-5.2); WHITE BLOOD COUNT (AUTO) 13.4 K/uL (4.3-11.0)
[2018-04-16 06:24] LABS: ALANINE AMINOTRANSFERASE 18 U/L (12-78); ALBUMIN 2.2 g/dL (3.4-5.0); ALKALINE PHOSPHATASE 80 U/L (46-116); ASPARTATE AMINOTRANSFERASE 18 U/L (15-37); BILIRUBIN,TOTAL 0.5 mg/dL (0.2-1.0); CALCIUM, SERUM 8.1 mg/dL (8.5-10.1); CARBON DIOXIDE 25 mmol/L (21-32); CHLORIDE 105 mmol/L (98-107); CREATININE 0.7 mg/dL (0.6-1.3); GLUCOSE 94 mg/dL (74-106); MAGNESIUM 1.7 mg/dL (1.8-2.4); PHOSPHORUS 1.9 mg/dL (2.5-4.9); POTASSIUM 3.8 mmol/L (3.5-5.1); SODIUM SERUM 140 mmol/L (136-145); TOTAL PROTEIN, SERUM 6.4 g/dL (6.4-8.2); UREA NITROGEN, BLOOD 10 mg/dL (7-18)
[2018-04-16] MEDS: HYDROCODONE/APAP 5/325MG 1 EACH TABLET PO PRN ×3 (07:04→23:32)
--- NOTE | 2018-04-16 07:13 | NUR ---
MOLDER FOAM RUBBER NOTES NO ACUTE CHANGES NOTED DURING THE SHIFT. PT AGITATED THROUGHOUT THE SHIFT. PROVIDED COMFORT AND SAFETY. DUE MEDS GIVEN. LANG CATH DRAINING WELL. WILL ENDORSE TO THE AM NURSE FOR CONTINUITY OF CARE.
--- NOTE | 2018-04-16 07:15 | NUR ---
RN INITIAL NOTES RECEIVED PT AGITATED/RESTLESS. TRYING TO GET OUT OF BED. PT ON BILATERAL WRIST RESTRAINTS. NO CIRCULATORY IMPAIRMENT NOTED. ON 02 AT 5LPM VIA NC. HOB ELEVATED. NO SIGNS OF PAIN NOTED. MACY MIDLINE IN PLACE. IVF INFUSING. GT CLAMPED. FC IN PLACE. NO HEMATURIA NOTED. PT CLEAN AND DRY. WILL MONITOR
[2018-04-16] MEDS ORDERED: POTASSIUM PHOSPHATE MM 15 MMOL in IV D5W 250 ML IV SCH (08:00)
[2018-04-16] MEDS: ACETYLCYSTEINE 10% SOLN 400 MG/4 ML VIAL NEB SCH ×3 (08:07→23:22)
[2018-04-16] MEDS: Magnesium 1GM/D5W 100ML PREMIX 100 ML IV SCH ×2 (08:09→09:10)
[2018-04-16] MEDS: ENOXAPARIN SODIUM 40 MG/0.4 ML DISP.SYRIN SQ SCH (08:10)
[2018-04-16] MEDS: LEVOTHYROXINE SODIUM 50 MCG TABLET GT SCH (08:11)
[2018-04-16] MEDS: FERROUS SULFATE (325 MG) 325 MG/TAB TABLET GT SCH (08:11)
[2018-04-16] MEDS: ZINC SULFATE 220 MG CAPSULE PO SCH (08:11)
[2018-04-16] MEDS: LACTOBACILLUS RHAMNOSUS GG 1 EACH CAP.SPRINK PO SCH ×2 (08:11→16:26)
[2018-04-16] MEDS: ASPIRIN EC 81 MG TABLET.DR PO SCH (08:12)
[2018-04-16] MEDS: AMLODIPINE BESYLATE 5 MG TABLET GT SCH (08:12)
[2018-04-16] MEDS: MUPIROCIN OINT 2% 22 GM TUBE SCH ×2 (08:12→22:17)
[2018-04-16] MEDS: risperiDONE 0.25 MG TABLET PO SCH ×4 (08:12→22:16)
[2018-04-16] MEDS: RIVASTIGMINE TARTRATE 1.5 MG CAPSULE PO SCH ×2 (08:14→22:16)
[2018-04-16] MEDS: POTASSIUM PHOSPHATE MM 7.5 MMOL in IV D5W 100 ML IV SCH ×2 (09:11→12:17)
[2018-04-16] MEDS: VANCOMYCIN 0.75 GM in IV D5W 250 ML IV SCH (11:14)
--- NOTE | 2018-04-16 13:00 | NUR ---
RN NOTES SEEN AND EXAMINED BY DR DESIR. PT ON VIA NC AT 5LPM. HOB ELEVATED. PT AGITATED/RESTLESS. MD AWARE OF CURRENT LAB VALUES AND CXR RESULT. WILL MONITOR.
--- NOTE | 2018-04-16 14:00 | NUR ---
RN NOTES SEEN AND EXAMINED BY DR SHARMA. SAW PT RESTLESS, AGITATED. REVIEWED CURRENT MEDS, LAB VALUES AND BASELINE EKG RESULT. CALLED DR JIM FOR PSYCH CONSULT. WILL MONITOR.
--- NOTE | 2018-04-16 14:20 | NUR ---
RN NOTES SEEN AND EXAMINED BY DR JIM. PT STILL RESTLESS/AGITATED, YELLING. TRYING TO GET OUT OF BED. REVEIWED H&P, CURRENT MEDS, LAB VALUES AND EKG RESULT. AWAITING FOR ORDER/S. WILL MONITOR
[2018-04-16] MEDS: IV D5/ 0.9% NACL 1,000 ML IV PRN (15:31)
[2018-04-16] MEDS: GABAPENTIN 100 MG CAPSULE PO SCH ×3 (15:31→22:17)
--- NOTE | 2018-04-16 18:43 | NUR ---
RN CLOSING NOTES PT REMAINS AGITATED, RESTLESS. TRYING TO GET OUT OF BED. MEDICATIONS GIVEN ORDERED, NOT EFFECTIVE. DR JIM AWARE. IVF INFUSING. FC IN PLACE. KEPT CLEAN AND DRY. KEPT COMFORTABLE. ALL NEEDS ATTENDED AND MET. WILL ENDORSE FOR CONTINUITY OF CARE.
--- NOTE | 2018-04-16 19:45 | NUR ---
ICU/CHILD PSYCHOLOGY TEACHER RECEIVED REPORT FROM DAY NURSE. SEE NURSING FLOWSHEET FOR ASSESSMENT AND SKIN ISSUES THAT ARE ADDRESSED. PT WAS TURNED AND REPOSITIONED FOR COMFORT AND CARE. WILL CONTINUE TO MONITOR THIS PT.
--- NOTE | 2018-04-16 20:15 | NUR ---
ICU/BINDERY TECHNICIAN PT APPEARS TO BE A MOUTH BREATHER, PT WAS SWITCHED FROM N/C TO SIMPLE MASK. WILL CONTINUE TO MONITOR THIS PT AND HER SATURATION.
[2018-04-16] MEDS: SENNOSIDES 8.6 MG TABLET GT SCH (22:16)
--- NOTE | 2018-04-16 23:45 | NUR ---
ICU/HOME MORTGAGE DISCLOSURE ACT SPECIALIST PT APPEARED TO BE AGITATED POSSIBLY FROM PAIN, FLACC SCALE USED WAS 7/10. GAVE NORCO 1 TAB. WILL CONTINUE TO MONITOR THIS PT'S PAIN.
[2018-04-17] VITALS (19 sets, daily range): BP systolic 122–172; BP diastolic 34–112
[2018-04-17] MEDS: ALBUTEROL HALF STRENGTH 1.25 MG/3 ML VIAL.NEB NEB SCH ×5 (01:48→23:23)
[2018-04-17] MEDS: IPRATROPIUM NEB FS 0.5 MG/2.5 ML AMPUL.NEB NEB SCH ×5 (01:48→23:23)
--- NOTE | 2018-04-17 02:10 | NUR ---
ICU/CARBON CLEANER CALLED TAPER PRINTED CIRCUIT LAYOUT FOR PT DURING BATH. PT IS AGITATED AND RESTLESS. ORDER WAS RECEIVED FOR RESPERAL PO. THIS WAS GIVEN TO PT TO HELP WITH THE ANXIETY SHE MAYBE HAVING. WILL CONTINUE TO MONITOR THIS PT WHO ALSO HAS INCREASED HEART RATE AND BLOOD PRESSURE AFTER BATH.
[2018-04-17] MEDS ORDERED: risperiDONE 0.25 MG TABLET PO ONE (02:30)
[2018-04-17] MEDS: NITROGLYCERIN 30 GM TUBE TP SCH ×2 (02:32→14:59)
[2018-04-17] MEDS: VANCOMYCIN 0.75 GM in IV D5W 250 ML IV SCH ×2 (02:37→21:18)
[2018-04-17 04:42] LABS: BASOPHILS % (AUTO) 0.6 % (0.0-2.0); EOSINOPHILS % (AUTO) 1.8 % (0.0-6.0); HEMATOCRIT 24 % (33-45); HEMOGLOBIN 7.9 g/dL (11.5-14.8); LYMPHOCYTES # (AUTO) 0.6 /CMM (0.8-4.8); LYMPHOCYTES % (AUTO) 8.3 % (20.0-44.0); MEAN CORPUSCULAR HGB CONC 33 g/dl (31.0-36.0); MEAN CORPUSCULAR VOLUME 83 fL (82-100); MONOCYTES # (AUTO) 0.7 /CMM (0.1-1.30); MONOCYTES % (AUTO) 8.6 % (2.0-12.0); NEUTROPHILS # (AUTO) 6.1 /CMM (1.8-8.9); NEUTROPHILS % (AUTO) 80.7 % (43.0-81.0); PLATELET COUNT (AUTO) 382 /CMM (150-450); RED BLOOD CELL COUNT(AUTO) 2.92 MIL/uL (4.0-5.2); WHITE BLOOD COUNT (AUTO) 7.6 K/uL (4.3-11.0)
[2018-04-17 04:53] LABS: CALCIUM, SERUM 7.4 mg/dL (8.5-10.1); CARBON DIOXIDE 27 mmol/L (21-32); CHLORIDE 103 mmol/L (98-107); CREATININE 0.8 mg/dL (0.6-1.3); GLUCOSE 113 mg/dL (74-106); MAGNESIUM 1.7 mg/dL (1.8-2.4); PHOSPHORUS 2.2 mg/dL (2.5-4.9); POTASSIUM 2.9 mmol/L (3.5-5.1); SODIUM SERUM 136 mmol/L (136-145); UREA NITROGEN, BLOOD 10 mg/dL (7-18)
--- NOTE | 2018-04-17 07:15 | NUR ---
RN INITIAL NOTES: Rec'd pt on bed, agitated & restless. On NC at 5lpm, sating at 94%. On telemonitor, SR/ST. Has MACY midline w/ D5NS x 50 cc/hr infusing well, no s/sx of infection/infiltration noted. Has FC draining to BSB w/ adequate UOP. Has GT clamped at this time, no GTF started d/t poss aspiration per report. On soft bilateral wrist restraints on d/t trying to get OOB & pulling out lines/tubes. Provided comfort & safety environment. Bed kept low & in locked pos. Call light placed w/in reach. On contact isolation prec. Will continue to monitor & attend pt needs.
[2018-04-17] MEDS: ACETYLCYSTEINE 10% SOLN 400 MG/4 ML VIAL NEB SCH ×3 (07:45→23:23)
[2018-04-17] MEDS: RIVASTIGMINE TARTRATE 1.5 MG CAPSULE PO SCH ×2 (08:26→20:18)
[2018-04-17] MEDS: LACTOBACILLUS RHAMNOSUS GG 1 EACH CAP.SPRINK PO SCH ×2 (08:26→16:53)
[2018-04-17] MEDS: risperiDONE 0.25 MG TABLET PO SCH ×3 (08:26→16:53)
[2018-04-17] MEDS: GABAPENTIN 100 MG CAPSULE PO SCH (08:26)
[2018-04-17] MEDS: ZINC SULFATE 220 MG CAPSULE PO SCH (08:26)
[2018-04-17] MEDS: ASPIRIN EC 81 MG TABLET.DR PO SCH (08:29)
[2018-04-17] MEDS: MEROPENEM 500 MG in IV NS 0.9% 100 ML IV SCH ×3 (08:29→23:44)
[2018-04-17] MEDS: MUPIROCIN OINT 2% 22 GM TUBE SCH ×2 (08:29→20:18)
[2018-04-17] MEDS: AMLODIPINE BESYLATE 5 MG TABLET GT SCH (08:29)
[2018-04-17] MEDS: LEVOTHYROXINE SODIUM 50 MCG TABLET GT SCH (08:29)
[2018-04-17 08:30] LABS: IRON, SERUM 11 ug/dl (50-175); TOTAL IRON BINDING CAPACITY 101 ug/dl (250-450)
[2018-04-17] MEDS: ENOXAPARIN SODIUM 40 MG/0.4 ML DISP.SYRIN SQ SCH (08:30)
[2018-04-17] MEDS ORDERED: CLONIDINE HCL 0.3 MG/24H PTWK 1 EA PATCH TD SCH (08:30)
[2018-04-17] MEDS ORDERED: POTASSIUM PHOSPHATE MM 15 MMOL in IV D5W 250 ML IV SCH (08:30)
[2018-04-17 08:48] LABS: FERRITIN 459 ng/mL (8-388)
[2018-04-17 08:58] LABS: ABG BASE EXCESS -1.6 mmol/L; ABG OXYGEN SATURATION 98.3 % (92.0-98.5); ABG PCO2 19.3 mmHg (35.0-45.0); ABG PH 7.602 (7.350-7.450); ABG PO2 145.4 mmHg (75.0-100.0); AaDO2 117.6 mmHg; COHb 0.3 % (0.5-1.5); MetHb 0.6 % (0.0-1.5); O2Hb 97.4 % (94.0-97.0); SITE, ABG Right Radial; VENT MODE, BG Nasal Cannula
[2018-04-17] MEDS: Magnesium 1GM/D5W 100ML PREMIX 100 ML IV SCH ×2 (09:05→10:13)
[2018-04-17] MEDS: POTASSIUM PHOSPHATE MM 7.5 MMOL in IV D5W 100 ML IV SCH ×2 (09:33→12:40)
[2018-04-17] MEDS: POTASSIUM CL. PREMIX PERIPHER. 50 ML IV SCH ×6 (10:33→16:00)
--- NOTE | 2018-04-17 11:11 | NUR ---
Pt seen & examined by Dr. Hutchison w/ orders made & carried out.
[2018-04-17] MEDS: BENZTROPINE MESYLATE (1 MG) 1 MG TABLET PO SCH ×2 (11:29→16:53)
[2018-04-17] MEDS: GABAPENTIN 300 MG CAPSULE PO SCH ×2 (12:44→16:53)
--- NOTE | 2018-04-17 16:34 | NUR ---
Pt seen & examined by Dr. Henriquez, carmenay to downgrade to [facility] & start on GTF per RD recommendation.
[2018-04-17] MEDS ORDERED: JEVITY 1.2 CAL 1,000 ML BOTTLE GT PRN (17:00)
--- NOTE | 2018-04-17 18:00 | NUR ---
LETTER STAMPING MACHINE OPERATOR NOTES: Pt transferred to [facility], rm 101 via bed, ACLS protocol. Pt not in any distress. IV line access kept patent & intact w/ no s/sx of infection/infiltration noted. FC kept patent & intact draining to BSB. All medications & TF endorsed to receiving RN. Report given to BRADLEY Hernandez. No issues identified upon transfer.
--- NOTE | 2018-04-17 18:15 | NUR ---
[facility] SPACE AND STORAGE CLERK NOTES RECEIVED PT FROM ICU TO ROOM 101 VIA GURNEY WITH CONTACT ISOLATION FOR MRSA NARES AND ESBL URINE.ALERT/ORIENTED X1 WITH CONFUSION.ON TELE HR IS 69 WITH SR.WITH 5L O2 VIA NC CONTINUOUSLY.NO SOB AND ACUTE DISTRESS NOTED.HAS G TUBE AND LANG CATHETER IS IN PLACE AND PATENT.RIGHT UA MIDLINE AND IV LINE IS ON RIGHT HAND G20.SITE IS CLEAN,DRY AND INTACT.NO INFILTRATION NOTED.HAS B/L SOFT WRIST RESTRAINTS PRESENT.SAFETY IS MAINTAINED AT ALL TIMES.BED IS IN LOW POSITION AND LOCKED.CALL LIGHT IS WITH IN REACH.WILL CONTINUE TO MONITOR THE PT CLOSELY.
--- NOTE | 2018-04-17 18:57 | NUR ---
[facility] RN CLOSING NOTES PT IS ON BED WITH B/L WRIST RESTRAINTS .SKIN IS INTACT AND DRESSING IS INTACT ON BUTTOCKS AND ELBOWS.G TUBE FEEDING IS STARTED WITH JEVITY 1.2@10CC/HR,GOAL IS 55CC/HR.ENDORSED TO SUPPLIER ENGINEER RN FOR CONTINUITY OF CARE.
[2018-04-17] MEDS: SENNOSIDES 8.6 MG TABLET GT SCH (21:18)
[2018-04-18] VITALS: BP 106/48
--- NOTE | 2018-04-18 03:20 | NUR ---
RN NOTES RESUMED CARE OF THIS PATIENT, RECEIVED REPORT FROM NURSE MELCHOR
[2018-04-18] MEDS: NITROGLYCERIN 30 GM TUBE TP SCH ×2 (03:32→14:28)
[2018-04-18 04:00] VITALS: BP 110/45
[2018-04-18 07:32] LABS: BASOPHILS % (AUTO) 0.6 % (0.0-2.0); EOSINOPHILS % (AUTO) 3.8 % (0.0-6.0); HEMATOCRIT 25 % (33-45); LYMPHOCYTES # (AUTO) 0.5 /CMM (0.8-4.8); LYMPHOCYTES % (AUTO) 9.1 % (20.0-44.0); MEAN CORPUSCULAR HGB CONC 32 g/dl (31.0-36.0); MEAN CORPUSCULAR VOLUME 83 fL (82-100); MONOCYTES # (AUTO) 0.5 /CMM (0.1-1.30); MONOCYTES % (AUTO) 8.6 % (2.0-12.0); NEUTROPHILS # (AUTO) 4.6 /CMM (1.8-8.9); NEUTROPHILS % (AUTO) 77.9 % (43.0-81.0); PLATELET COUNT (AUTO) 397 /CMM (150-450); RED BLOOD CELL COUNT(AUTO) 2.96 MIL/uL (4.0-5.2); WHITE BLOOD COUNT (AUTO) 5.9 K/uL (4.3-11.0)
[2018-04-18] MEDS: ACETYLCYSTEINE 10% SOLN 400 MG/4 ML VIAL NEB SCH ×2 (07:45→13:53)
[2018-04-18] MEDS: ALBUTEROL HALF STRENGTH 1.25 MG/3 ML VIAL.NEB NEB SCH ×2 (07:45→13:53)
[2018-04-18] MEDS: IPRATROPIUM NEB FS 0.5 MG/2.5 ML AMPUL.NEB NEB SCH ×2 (07:45→13:53)
[2018-04-18 07:50] LABS: ALANINE AMINOTRANSFERASE 14 U/L (12-78); ALKALINE PHOSPHATASE 70 U/L (46-116); ASPARTATE AMINOTRANSFERASE 16 U/L (15-37); BILIRUBIN,TOTAL 0.2 mg/dL (0.2-1.0); CALCIUM, SERUM 7.8 mg/dL (8.5-10.1); CARBON DIOXIDE 30 mmol/L (21-32); CHLORIDE 107 mmol/L (98-107); CREATININE 0.7 mg/dL (0.6-1.3); GLUCOSE 128 mg/dL (74-106); MAGNESIUM 2.2 mg/dL (1.8-2.4); PHOSPHORUS 3.1 mg/dL (2.5-4.9); SODIUM SERUM 141 mmol/L (136-145); TOTAL PROTEIN, SERUM 5.7 g/dL (6.4-8.2); UREA NITROGEN, BLOOD 10 mg/dL (7-18)
[2018-04-18 08:00] VITALS: BP 142/57
[2018-04-18] MEDS: risperiDONE 0.25 MG TABLET PO SCH (08:00)
[2018-04-18] MEDS: ASPIRIN EC 81 MG TABLET.DR PO SCH (08:10)
[2018-04-18] MEDS: ZINC SULFATE 220 MG CAPSULE PO SCH (08:10)
[2018-04-18] MEDS: LACTOBACILLUS RHAMNOSUS GG 1 EACH CAP.SPRINK PO SCH (08:10)
[2018-04-18] MEDS: LEVOTHYROXINE SODIUM 50 MCG TABLET GT SCH (08:10)
[2018-04-18] MEDS: GABAPENTIN 300 MG CAPSULE PO SCH (08:11)
[2018-04-18] MEDS: RIVASTIGMINE TARTRATE 1.5 MG CAPSULE PO SCH (08:11)
[2018-04-18] MEDS: AMLODIPINE BESYLATE 5 MG TABLET GT SCH (08:11)
[2018-04-18] MEDS: MEROPENEM 500 MG in IV NS 0.9% 100 ML IV SCH (08:13)
[2018-04-18] MEDS: BENZTROPINE MESYLATE (1 MG) 1 MG TABLET PO SCH (08:15)
[2018-04-18] MEDS: ENOXAPARIN SODIUM 40 MG/0.4 ML DISP.SYRIN SQ SCH (08:18)
[2018-04-18] MEDS ORDERED: MERO500V IV (12:46)
[2018-04-18] MEDS ORDERED: RXVAN XX (12:46)
[2018-04-18] MEDS ORDERED: GABAPENTIN 100 MG CAPSULE PO PRN (13:00)
[2018-04-18] MEDS ORDERED: GABAPENTIN 100 MG CAPSULE PO SCH (13:00)
[2018-04-18] MEDS: MUPIROCIN OINT 2% 22 GM TUBE SCH (13:26)
[2018-04-18 14:00] VITALS: BP 127/44
[2018-04-18] MEDS ORDERED: SOD FERRIC GLUC 125 MG in IV NS 0.9% 100 ML IV SCH (14:00)
[2018-04-18] MEDS: VANCOMYCIN 0.75 GM in IV D5W 250 ML IV SCH (15:05)
[2018-04-18 16:00] VITALS: BP 123/49
--- NOTE | 2018-04-18 16:00 | NUR ---
RN NOTE PT DISCHARGED BACK TO [facility], REPORT GIVEN TO SÁNCHEZ RN, BELONGINGS LIST SIGNED, EXIT CARE DONE, DISCHARGE INSTRUCTIONS PROVIDED, PT UNABLE TO COMPREHEND. MED LIST PROVIDED, PICTURES TAKEN, ACCORDING TO PREVIOUS RECORDS IN [facility] PT REFUSED FLU AND PNA SHOTS. LEFT MESSAGE TO FAMILY MEMBER, DID NOT HEAR BACK. IV MIDLINE AND IV R HAND LEFT IN PLACE DUE TO CONTINUING ANTIBIOTICS AT THE FACILITY.
[2018-04-18] MEDS ORDERED: risperiDONE 0.25 MG TABLET PO SCH (17:00)
== END 2018-04-18 16:20 | DRG 871 ==
LOC: ER 10:57 → TELE1 13:00 → ICU 14:38 → TELE-TD 04-13 14:38 → TELE1 04-13 14:43 → ICU 04-14 10:54 → TELE-TD 04-17 18:21 → MEDSG1 04-18 10:12
PROVIDERS: ADMIT Internal Medicine; ATTEND Internal Medicine
PROC: 05HY33Z Insertion of Infusion Device into Upper Vein, Percutaneous Approach (ICD-10-PCS; principal; 2018-04-14)
DX: A41.9 Sepsis, unspecified organism (principal); J96.01 Acute respiratory failure with hypoxia; I21.A1 Myocardial infarction type 2; G92 Toxic encephalopathy; J15.1 Pneumonia due to Pseudomonas; E46 Unspecified protein-calorie malnutrition; D68.59 Other primary thrombophilia; N39.0 Urinary tract infection, site not specified; I50.32 Chronic diastolic (congestive) heart failure; E87.2 Acidosis; Z93.1 Gastrostomy status; R62.7 Adult failure to thrive; D63.8 Anemia in other chronic diseases classified elsewhere; E03.9 Hypothyroidism, unspecified; E87.6 Hypokalemia; F03.90 Unspecified dementia, unspecified severity, without behavioral disturbance, psychotic disturbance, mood disturbance, and anxiety; F20.9 Schizophrenia, unspecified; F09 Unspecified mental disorder due to known physiological condition; I10 Essential (primary) hypertension; D32.9 Benign neoplasm of meninges, unspecified; Z22.322 Carrier or suspected carrier of Methicillin resistant Staphylococcus aureus; L89.021 Pressure ulcer of left elbow, stage 1; L89.011 Pressure ulcer of right elbow, stage 1; I11.0 Hypertensive heart disease with heart failure; F01.50 Vascular dementia, unspecified severity, without behavioral disturbance, psychotic disturbance, mood disturbance, and anxiety; B96.5 Pseudomonas (aeruginosa) (mallei) (pseudomallei) as the cause of diseases classified elsewhere; Z16.12 Extended spectrum beta lactamase (ESBL) resistance; B96.20 Unspecified Escherichia coli [E. coli] as the cause of diseases classified elsewhere; E83.42 Hypomagnesemia; L22 Diaper dermatitis; K21.9 Gastro-esophageal reflux disease without esophagitis; R32 Unspecified urinary incontinence
CPT/HCPCS: 31720; 36415; 36569; 36600; 70450-TC; 71045-TC; 80048-TC; 80053-TC; 80061-TC; 80076-TC; 80202-TC; 81000-TC; 82728-TC; 82803-TC; 82962-TC; 83540-TC; 83605-TC; 83735-TC; 84100-TC; 84443-TC; 84484-TC; 85025-TC; 85730-TC; 86850-TC; 87040-TC; 87070-TC; 87081-TC; 87086-TC; 87186-TC; 87400; 94640-TC; 94760-TC; 94799-TC; A4216; A4606; G0378; J0696; J1650; J2060; J2185; J2543; J2916; J2930; J3370; J3475; J3480; J3490; J7030; J7042; J7050; J7060; Z7610

== ENCOUNTER 2018-05-30 08:14 | Inpatient (IN) | payer MEDICARE ==
[~2018-05-30] VITALS: Ht 149.9 cm; Wt 52.7 kg
[~2018-05-30 08:14] MED LIST changes: +AMIN30LI2 GT; -AMIN30LI2 PO; -ASCO500T9 PO; +ASPI-1152 GT; -ASPI-1152 PO; +CRAN3875 GT; +FERR325T23 GT; -FLUC200T PO; -GUAI600T53 PO; -LACT-209 GT; +LACT-96 GT; -LEVO25TA7 PO; +LEVO50TA8 GT; +MERO500V IV; -MICO45CR11 VG; +RIVA1.5C7 GT; -RIVA1.5C7 PO; +RXVAN XX
[2018-05-30] MEDS ORDERED: methylPREDNISolone SOD SUCC 125 MG/2ML VIAL IV ONE (08:30)
[2018-05-30] MEDS ORDERED: ALBUTEROL FS 2.5 MG/3 ML VIAL.NEB CONTNEB ONE (08:30)
[2018-05-30] MEDS ORDERED: IPRATROPIUM NEB FS 0.5 MG/2.5 ML AMPUL.NEB NEB ONE (08:30)
[2018-05-30] MEDS ORDERED: IV NS 0.9% 1,000 ML BAG IV ONE (08:30)
[2018-05-30] MEDS ORDERED: methylPREDNISolone SOD SUCC 125 MG/2ML VIAL ONE (08:39)
[2018-05-30] MEDS ORDERED: HYDR-4384 GT ×2 (08:40)
[2018-05-30] MEDS ORDERED: ONDA4TAB5 GT (08:40)
--- NOTE | 2018-05-30 08:40 | NUR ---
NIKKI CAME IN VIA RA C/O OF SOB, PATIENT IS CONFUSED. ON 02 @ 10LPM VIA MASK, 02 SAT 97%, CONNECTED TO THE MONITOR AND PULSE OX, KEPT COMFROTABLE, WILL CONTINUE TO MONITOR ACCORDINGLY.
--- NOTE | 2018-05-30 08:41 | NUR ---
Line started on R hand, g 20, blood and cultures drawn from line and sent to lab
[2018-05-30 08:58] LABS: BASOPHILS # (AUTO) 0.1 /CMM (0.0-0.2); BASOPHILS % (AUTO) 0.5 % (0.0-2.0); EOSINOPHILS % (AUTO) 0.2 % (0.0-6.0); HEMATOCRIT 34 % (33-45); HEMOGLOBIN 10.6 g/dL (11.5-14.8); LYMPHOCYTES # (AUTO) 0.8 /CMM (0.8-4.8); LYMPHOCYTES % (AUTO) 4.3 % (20.0-44.0); MEAN CORPUSCULAR HGB CONC 31 g/dl (31.0-36.0); MEAN CORPUSCULAR VOLUME 83 fL (82-100); MONOCYTES # (AUTO) 1.7 /CMM (0.1-1.30); NEUTROPHILS # (AUTO) 15.9 /CMM (1.8-8.9); PLATELET COUNT (AUTO) 438 /CMM (150-450); RED BLOOD CELL COUNT(AUTO) 4.06 MIL/uL (4.0-5.2); WHITE BLOOD COUNT (AUTO) 18.4 K/uL (4.3-11.0)
[2018-05-30] MEDS ORDERED: ALBUTEROL FS 2.5 MG/3 ML VIAL.NEB ONE (08:59)
[2018-05-30] MEDS ORDERED: IPRATROPIUM NEB FS 0.5 MG/2.5 ML AMPUL.NEB ONE (09:00)
[2018-05-30 09:06] LABS: APPEARANCE,URINE CLOUDY (CLEAR); BILIRUBIN,URINE NEGATIVE (NEGATIVE); BLOOD, URINE TRACE-INTA Ery/uL (NEGATIVE); COLOR,URINE YELLOW (YELLOW); KETONES,URINE TRACE (NEGATIVE); LEUKOCYTE ESTERASE ,URINE 2+ (NEGATIVE); NITRITE, URINE NEGATIVE (NEGATIVE); PH,URINE 5.5 (5.0-8.0); PROTEIN,URINE 1+ mg/dl (NEGATIVE); UGLUCOSE NEGATIVE (NEGATIVE); UROBILINOGEN,URINE 0.2 EU/dL (0.2)
[2018-05-30 09:06] LABS: CALCIUM, SERUM 9.3 mg/dL (8.5-10.1); CARBON DIOXIDE 28 mmol/L (21-32); CHLORIDE 102 mmol/L (98-107); CREATININE 1.1 mg/dL (0.6-1.3); GLUCOSE 122 mg/dL (74-106); POTASSIUM 4.7 mmol/L (3.5-5.1); SODIUM SERUM 138 mmol/L (136-145); UREA NITROGEN, BLOOD 56 mg/dL (7-18)
[2018-05-30 09:12] LABS: ALANINE AMINOTRANSFERASE 20 U/L (12-78); ALBUMIN 3.2 g/dL (3.4-5.0); ALKALINE PHOSPHATASE 88 U/L (46-116); ASPARTATE AMINOTRANSFERASE 23 U/L (15-37); BILIRUBIN,DIRECT 0.1 mg/dL (0.0-0.2); BILIRUBIN,TOTAL 0.3 mg/dL (0.2-1.0)
[2018-05-30 09:16] LABS: BACTERIA,URINE 2+ /HPF (None Seen); WBC,URINE 21-50 /HPF (0-3)
--- NOTE | 2018-05-30 09:22 | NUR ---
Laisha Mendez for admission
--- NOTE | 2018-05-30 09:28 | NUR ---
called for tele bed
[2018-05-30] MEDS ORDERED: PIPERACILLIN /TAZOBACTAM 3.375 G in IV D5W 50 ML IV ONE (09:30)
[2018-05-30] MEDS ORDERED: LEVOFLOXACIN 750 MG /D5W 150ML 750 MG in PREMIX 1 EA IV ONE (09:30)
[2018-05-30] MEDS ORDERED: LEVOFLOXACIN 750 MG /D5W 150ML PIGGYBACK IV ONE (09:30)
[2018-05-30] MEDS ORDERED: ACETAMINOPHEN 325 MG TABLET PO PRN ×2 (10:00→20:00)
[2018-05-30] MEDS ORDERED: MAG HYDROX/AL HYDROX/SIMETH 30 ML UDC PO PRN ×2 (10:00→20:00)
[2018-05-30] MEDS ORDERED: MAGNESIUM HYDROXIDE 30 ML UDC PO PRN ×2 (10:00→20:00)
[2018-05-30] MEDS ORDERED: ONDANSETRON HCL/PF 4 MG/2 ML VIAL IVP PRN ×2 (10:00→20:00)
[2018-05-30] MEDS ORDERED: IPRATROPIUM NEB FS 0.5 MG/2.5 ML AMPUL.NEB NEB PRN ×2 (10:30→20:00)
[2018-05-30] MEDS ORDERED: ALBUTEROL FS 2.5 MG/0.5 ML VIAL.NEB NEB PRN ×2 (10:30→20:00)
--- NOTE | 2018-05-30 10:36 | NUR ---
REPORT GIVEN TO MADELEINE HUERTA FOR ARNOL.
[2018-05-30 10:45] VITALS: BP 137/68
[2018-05-30] MEDS ORDERED: FEE PK DOSING 1 MIN EA MC ONE (10:54)
[2018-05-30] MEDS: HEPARIN SODIUM, PORCINE 5000 UNITS/1 ML VIAL SQ SCH ×2 (11:15→21:35)
--- NOTE | 2018-05-30 11:15 | NUR ---
RECEIVED PATIENT AWAKE AND CONFUSED. PATIENT TRANSPORTED VIA GURNEY. VS ARE STABLE , O2 SATURATION 96% ON MASK FLOW RATE 10L AT THIS TIME. IV LINE ON LEFT ARM NOT WORKING. G -TUBE IN PLACE, FLUSHED, NOT ON FEEDING AT THIS TIME. PT UNCOOPERATIVE, CONFUSED AND PULLING OUT LINES, REMOVING O2 MASK. SKIN CHECKED : REDNESS ON THE SACRUM , NO OPEN WOUNDS. WILL F/U WITH ADM. ORDERS AND MONITOR PATIENT
--- NOTE | 2018-05-30 11:15 | NUR ---
PATIENT TRANSPORTED VIA RRADCLIFFE ACCOMPANIDE BY RN AND EMT VIA ACLS PROTOCOL IN NO APPARENT DISTRESS NOTED. MADELEINE ON SITE AND RECEIVED PATIENT.
--- NOTE | 2018-05-30 11:30 | NUR ---
OBTAINED ORDER FOR B/LATERAL SOFT RESTRAINS FOR PT SAFETY AND TO PROVIDE IV MEDS AND FLUIDS. EDUCATION PROVIDED , PT CONFUSED.
[2018-05-30] MEDS ORDERED: VANCOMYCIN 1 GM in IV D5W 250 ML IV ONE (12:00)
[2018-05-30] MEDS ORDERED: VANCOMYCIN 0.75 GM in IV D5W 250 ML IV SCH (12:00)
--- NOTE | 2018-05-30 12:00 | NUR ---
NEW IV LINE INSERTED ON RIGHT WRIST #22 GSaleem VILLALOBOS STARTED
[2018-05-30] MEDS: IV NS 0.9% 1,000 ML IV PRN (12:52)
[2018-05-30] MEDS ORDERED: PIPERACILLIN /TAZOBACTAM 2.25 G in IV D5W 50 ML IV SCH ×3 (13:00→21:00)
[2018-05-30 16:00] VITALS: BP 140/61
--- NOTE | 2018-05-30 18:59 | NUR ---
PT AWAKE, ORIENTED X1 , CONFUSED . B/L SOFT WRIST RESTRAINS IN PLACE. IV ON R WRIST RUNNING FLUID AT 75 ML/H. PT ON O2 VIA MASK 8L , SATURATION 94%. PT KEPT CLEAN AND DRY , NEEDS ANTICIPATED , MED GIVEN . WILL ENDORSE TO NEXT SHIFT FOR ARNOL.
[2018-05-30] MEDS ORDERED: IV NS 0.9% 1,000 ML IV PRN (19:45)
[2018-05-30 20:00] VITALS: BP 118/64
--- NOTE | 2018-05-30 20:00 | NUR ---
INSTRUMENT ADJUSTER NOTE: PATIENT RESTING IN BED, NO ACUTE DISTRESS NOTED. BREATHING EVEN AND UNLABORED, NO SOB NOTED. 0XYGEN IN PLACE VIA MASK, O2 SAT 96%. IV TO RIGHT HAND DISLODGED. NEW IV STARTED TO RFA #22 WITH GOOD BLOOD RETURN. IV TO RIGHT HAND REMOVED, COVERED WITH GAUZED, PRESSURE APPLIED AND SECURED WITH TAPE. BED LOCKED AND IN LOWEST POSITION, CALL LIGHT IN REACH. WILL CONTINUE TO MONITOR.
[2018-05-30] MEDS ORDERED: HEPARIN SODIUM, PORCINE 5000 UNITS/1 ML VIAL SQ SCH (21:00)
[2018-05-30] MEDS: MEROPENEM 1 G in IV NS 0.9% 100 ML IV SCH (21:32)
--- NOTE | 2018-05-31 01:15 | NUR ---
AUTOMOTIVE PARTS ADVISOR NOTE: REPORT GIVEN TO CALLI, PATIENT RESTING IN BED, NO ACUTE DISTRESS NOTED. WILL CONTINUE TO MONITOR.
[2018-05-31] MEDS: VANCOMYCIN 0.75 GM in IV D5W 250 ML IV SCH (05:14)
[2018-05-31] MEDS: IV NS 0.9% 1,000 ML IV PRN (06:14)
--- NOTE | 2018-05-31 06:28 | NUR ---
PLANT AND EQUIPMENT WORKER NOTES PATIENT AWAKE AND CALM IN BED WITH NO DISTRESS NOTED. CALL LIGHT WITHIN REACH. SITTER AT BEDSIDE. SOFT RESTRAINTS DC'D D/T SITTER AT BEDSIDE. ALL DUE MEDS GIVEN ORDERED WITH NO ASE NOTED. PERIPHERAL LINE INTACT AND PATENT. NO C/O PAIN OR DISCOMFORT. BED IN LOW LOCK SETTING. ALL BELONGINGS KEPT NEAR BEDSIDE. WILL ENDORSE TO ONCOMING SHIFT.
[2018-05-31 06:32] LABS: CALCIUM, SERUM 8.1 mg/dL (8.5-10.1); CARBON DIOXIDE 25 mmol/L (21-32); CHLORIDE 109 mmol/L (98-107); CHOLESTEROL 128 mg/dL (<200); CREATININE 1.1 mg/dL (0.6-1.3); GLUCOSE 100 mg/dL (74-106); HDL CHOLESTEROL 67 mg/dL (40-60); LDL 60 mg/dL (0-99); MAGNESIUM 2.2 mg/dL (1.8-2.4); PHOSPHORUS 4.4 mg/dL (2.5-4.9); POTASSIUM 4.4 mmol/L (3.5-5.1); SODIUM SERUM 142 mmol/L (136-145); TRIGLYCERIDES 40 mg/dL (30-150)
[2018-05-31 06:38] LABS: BASOPHILS % (AUTO) 0.2 % (0.0-2.0); HEMATOCRIT 24 % (33-45); LYMPHOCYTES # (AUTO) 0.4 /CMM (0.8-4.8); LYMPHOCYTES % (AUTO) 4.9 % (20.0-44.0); MEAN CORPUSCULAR HGB CONC 33 g/dl (31.0-36.0); MEAN CORPUSCULAR VOLUME 82 fL (82-100); MONOCYTES % (AUTO) 11.6 % (2.0-12.0); NEUTROPHILS # (AUTO) 7.1 /CMM (1.8-8.9); NEUTROPHILS % (AUTO) 83.3 % (43.0-81.0); PLATELET COUNT (AUTO) 329 /CMM (150-450); RED BLOOD CELL COUNT(AUTO) 2.97 MIL/uL (4.0-5.2); WHITE BLOOD COUNT (AUTO) 8.6 K/uL (4.3-11.0)
[2018-05-31 06:40] LABS: UREA NITROGEN, BLOOD 54 mg/dL (7-18)
--- NOTE | 2018-05-31 07:26 | NUR ---
PATIENT AWAKE IN BED, ORIENTED X1, CONFUSED . WITH NO S/S RESPIRATORY DISTRESS NOTED. CALL LIGHT WITHIN REACH. SITTER AT BEDSIDE. PERIPHERAL LINE INTACT AND PATENT. NO C/O PAIN OR DISCOMFORT. BED IN LOW LOCK SETTING. WILL CONTINUE TO MONITOR
[2018-05-31 08:00] VITALS: BP 150/71
--- NOTE | 2018-05-31 08:42 | NUR ---
WOUND CARE CONSULT WOUND CARE RECEIVED CONSULT FOR SACRAL REDNESS,DTI. WOUND CARE WILL DEFER CONSULT AND TREATMENT PLANS TO PLASTIC SURGICAL TEAM WHO ARE CURRENTLY FOLLOWING THIS PATIENT. PATIENT WITH JESSI AT 11. ALL PRESSURE ULCER PREVENTION MEASURES ARE NOTED TO BE IN PLACE. WILL SEE PRN.
[2018-05-31] MEDS: MEROPENEM 1 G in IV NS 0.9% 100 ML IV SCH ×2 (08:53→20:59)
[2018-05-31] MEDS: HEPARIN SODIUM, PORCINE 5000 UNITS/1 ML VIAL SQ SCH ×2 (08:56→21:01)
[2018-05-31] MEDS ORDERED: PANTOPRAZOLE 40 MG VIAL IV SCH ×2 (09:00)
[2018-05-31] MEDS: FUROSEMIDE 40 MG/4 ML VIAL IV SCH ×2 (09:44→13:30)
[2018-05-31] MEDS: JEVITY 1.2 CAL 1,000 ML BOTTLE GT PRN (10:43)
--- NOTE | 2018-05-31 14:00 | NUR ---
LASIX GIVEN AT 1400 , FORGOT TO SCAN MEDICATION
--- NOTE | 2018-05-31 14:00 | NUR ---
PAGET DR HAHN : MEDRECON HASN'T DONE
[2018-05-31 16:00] VITALS: BP 155/74
[2018-05-31] MEDS: LACTOBACILLUS RHAMNOSUS GG 1 EACH CAP.SPRINK PO SCH (17:18)
--- NOTE | 2018-05-31 18:25 | NUR ---
PT REMAIN STABLE DURING THE SHIFT, ON O2 4 L VIA MASK SATURATING 96-97%. INFLUENZA A-B SWAB OBTAINED AND SENT TO LAB.PT KEPT CLEAN AND DRY. NEEDS ANTICIPATED, MEDS GIVEN. SITTER AT BEDSIDE. IV LINE ON R FOREARM G22, H/L. IV FLUID D/C. G-TUBE RESIDUAL 10ML , ONGOING FEEDING AT 40ML/HR ( GOAL 60 ML/HR). WILL ENDORSE TO NEXT SHIFT FOR ARNOL.
--- NOTE | 2018-05-31 20:00 | NUR ---
RN NOTES RECEIVED PATIENT AWAKE AND CALM IN BED WITH NO DISTRESS NOTED. CALL LIGHT WITHIN REACH. SITTER AT BEDSIDE. NO RESPIRATORY DISTRESS NOTED. PERIPHERAL LINE INTACT AND PATENT. GTF RUNNING AND TOLERATING WELL. NO C/O PAIN OR DISCOMFORT. BED IN LOW LOCK SETTING. ALL BELONGINGS KEPT NEAR BEDSIDE. WILL CONTINUE TO MONITOR.
[2018-06-01] MEDS: VANCOMYCIN 0.75 GM in IV D5W 250 ML IV SCH (00:15)
[2018-06-01 06:21] LABS: BASOPHILS # (AUTO) 0.1 /CMM (0.0-0.2); BASOPHILS % (AUTO) 0.5 % (0.0-2.0); EOSINOPHILS % (AUTO) 0.3 % (0.0-6.0); HEMATOCRIT 32 % (33-45); HEMOGLOBIN 10.4 g/dL (11.5-14.8); LYMPHOCYTES # (AUTO) 0.5 /CMM (0.8-4.8); LYMPHOCYTES % (AUTO) 5.5 % (20.0-44.0); MEAN CORPUSCULAR HGB CONC 33 g/dl (31.0-36.0); MEAN CORPUSCULAR VOLUME 82 fL (82-100); MONOCYTES # (AUTO) 0.8 /CMM (0.1-1.30); MONOCYTES % (AUTO) 8.6 % (2.0-12.0); NEUTROPHILS # (AUTO) 8.4 /CMM (1.8-8.9); NEUTROPHILS % (AUTO) 85.1 % (43.0-81.0); PLATELET COUNT (AUTO) 410 /CMM (150-450); WHITE BLOOD COUNT (AUTO) 9.8 K/uL (4.3-11.0)
--- NOTE | 2018-06-01 06:38 | NUR ---
MS RN NOTES PATIENT ASLEEP IN BED WITH NO DISTRESS NOTED. CALL LIGHT WITHIN REACH. SITTER AT BEDSIDE. NO RESPIRATORY DISTRESS NOTED. PERIPHERAL LINE INTACT AND PATENT. GTF RATE TITRATED TO 50ML/HR AND NOTED WITH 10ML GASTRIC RESIDUAL. NO C/O PAIN OR DISCOMFORT. BED IN LOW LOCK SETTING. ALL BELONGINGS KEPT NEAR BEDSIDE. WILL ENDORSE TO ONCOMING SHIFT.
[2018-06-01 06:39] LABS: CALCIUM, SERUM 8.5 mg/dL (8.5-10.1); CARBON DIOXIDE 23 mmol/L (21-32); CHLORIDE 106 mmol/L (98-107); CREATININE 0.8 mg/dL (0.6-1.3); GLUCOSE 114 mg/dL (74-106); POTASSIUM 3.5 mmol/L (3.5-5.1); SODIUM SERUM 141 mmol/L (136-145); UREA NITROGEN, BLOOD 37 mg/dL (7-18)
[2018-06-01 08:00] VITALS: BP 158/84
[2018-06-01] MEDS ORDERED: ACETAMINOPHEN 325 MG TABLET PO PRN (09:00)
[2018-06-01] MEDS ORDERED: MAGNESIUM HYDROXIDE 30 ML UDC PO PRN (09:00)
[2018-06-01] MEDS ORDERED: POTASSIUM CHLORIDE 20 MEQ TAB.PRT.SR PO SCH (09:00)
[2018-06-01] MEDS ORDERED: JEVITY 1.2 CAL 1,000 ML BOTTLE GT PRN (09:00)
[2018-06-01] MEDS ORDERED: Medication Not On Formulary EA (Ondansetron Hcl (Zofran) 4 MG) GT PRN (09:00)
[2018-06-01] MEDS ORDERED: NA PHOS,M-B/NA PHOS,DI-BA 1 EA ENEMA RC PRN (09:00)
[2018-06-01] MEDS ORDERED: BISACODYL SUPP (10 MG) 10 MG/SUPP.RECT SUPP.RECT RC PRN (09:00)
[2018-06-01] MEDS ORDERED: HYDROCODONE/APAP 5/325MG 1 EACH TABLET GT PRN (09:00)
[2018-06-01] MEDS: MEROPENEM 1 G in IV NS 0.9% 100 ML IV SCH (09:15)
[2018-06-01] MEDS: FAMOTIDINE (20 MG) 20 MG TABLET GT SCH (09:16)
[2018-06-01] MEDS: FUROSEMIDE 40 MG/4 ML VIAL IV SCH ×3 (09:22→16:40)
[2018-06-01] MEDS: HEPARIN SODIUM, PORCINE 5000 UNITS/1 ML VIAL SQ SCH ×2 (09:23→21:09)
[2018-06-01] MEDS: LACTOBACILLUS RHAMNOSUS GG 1 EACH CAP.SPRINK PO SCH ×2 (09:23→16:40)
[2018-06-01] MEDS: ASPIRIN EC 81 MG TABLET.DR PO SCH (09:24)
[2018-06-01] MEDS: FERROUS SULFATE (325 MG) 325 MG/TAB TABLET GT SCH (09:24)
[2018-06-01] MEDS: AMLODIPINE BESYLATE 5 MG TABLET GT SCH (09:24)
[2018-06-01] MEDS: risperiDONE 0.25 MG TABLET PO SCH ×2 (09:24→21:04)
[2018-06-01] MEDS: HYDROCODONE/APAP 5/325MG 1 EACH TABLET GT SCH (09:25)
[2018-06-01 09:29] LABS: ABG BASE EXCESS -1.2 mmol/L; ABG OXYGEN SATURATION 88.9 % (92.0-98.5); ABG PH 7.507 (7.350-7.450); ABG PO2 55.6 mmHg (75.0-100.0); AaDO2 61.8 mmHg; COHb 1.3 % (0.5-1.5); MetHb 0.7 % (0.0-1.5); O2Hb 87.1 % (94.0-97.0); SITE, ABG Right Radial; VENT MODE, BG room air
[2018-06-01] MEDS ORDERED: ACETAMINOPHEN ES 500 MG TABLET GT PRN (09:30)
[2018-06-01] MEDS ORDERED: POTASSIUM CHLORIDE 20 MEQ POWDER PACKET GT ONE (09:30)
[2018-06-01] MEDS: RIVASTIGMINE TARTRATE 1.5 MG CAPSULE GT SCH ×2 (09:48→21:06)
[2018-06-01] MEDS: PROSOURCE / PROSTAT (PYXIS) 30 ML UDC GT SCH ×2 (09:48→16:41)
[2018-06-01] MEDS: MULTIVIT W/MINERALS 1 TAB TABLET GT SCH (09:53)
[2018-06-01] MEDS ORDERED: MEROPENEM 1 G in IV NS 0.9% 100 ML IV SCH (15:00)
[2018-06-01] MEDS: JEVITY 1.2 CAL 1,000 ML BOTTLE GT PRN (15:36)
[2018-06-01 16:00] VITALS: BP 138/71
--- NOTE | 2018-06-01 19:05 | NUR ---
PT REMAIN CONFUSED AWARE AND ORIENTED X1. SITTER AT BEDSIDE. MED. ARE GIVEN NEEDS ANTICIPATED. WILL ENDORSE TO NEXT SHIFT.
--- NOTE | 2018-06-01 19:45 | NUR ---
MS RONY INITIAL NOTES RECEIVED REPORT FROM AM NURSE AND SEEN PT IN BED AWAKE AND CONFUSED WITH SITTER AT THE BEDSIDE. NO SIGNS OF ANY ACUTE DISTRESS NOTED.RE-ORIENTED WHERE SHE AT. G-TUBE HOLD AT THIS TIME BECAUSE PER AM NURSE PT TRYING TO GET OUT OF BED EARLIER. CHECKED G-TUBE SITE ASPIRATE AND NO RESIDUAL NOTED , FLUSHED WELL WITH WATER . RE-CONNECTED JEVITY AT 60ML/HR ORDERED. KEPT PT ON SEMI FOWLERS POSITION .KEPT HER WARM AND COMFORTABLE AT ALL TIMES. SITTER AT THE BEDSIDE FOR SAFETY. WILL CONTINUE MONITORING.
[2018-06-01 20:00] VITALS: BP 142/81
[2018-06-01] MEDS: SENNOSIDES 8.6 MG TABLET GT SCH (21:04)
[2018-06-02 06:22] LABS: BASOPHILS % (AUTO) 0.5 % (0.0-2.0); EOSINOPHILS % (AUTO) 1.8 % (0.0-6.0); HEMATOCRIT 32 % (33-45); HEMOGLOBIN 10.6 g/dL (11.5-14.8); LYMPHOCYTES # (AUTO) 0.5 /CMM (0.8-4.8); LYMPHOCYTES % (AUTO) 6.9 % (20.0-44.0); MEAN CORPUSCULAR HGB CONC 33 g/dl (31.0-36.0); MEAN CORPUSCULAR VOLUME 81 fL (82-100); MONOCYTES # (AUTO) 0.8 /CMM (0.1-1.30); MONOCYTES % (AUTO) 10.3 % (2.0-12.0); NEUTROPHILS # (AUTO) 6.1 /CMM (1.8-8.9); NEUTROPHILS % (AUTO) 80.5 % (43.0-81.0); PLATELET COUNT (AUTO) 395 /CMM (150-450); RED BLOOD CELL COUNT(AUTO) 3.99 MIL/uL (4.0-5.2); WHITE BLOOD COUNT (AUTO) 7.6 K/uL (4.3-11.0)
[2018-06-02 06:32] LABS: ALANINE AMINOTRANSFERASE 42 U/L (12-78); ALBUMIN 2.7 g/dL (3.4-5.0); ALKALINE PHOSPHATASE 80 U/L (46-116); ASPARTATE AMINOTRANSFERASE 24 U/L (15-37); BILIRUBIN,TOTAL 0.5 mg/dL (0.2-1.0); CALCIUM, SERUM 8.8 mg/dL (8.5-10.1); CARBON DIOXIDE 26 mmol/L (21-32); CHLORIDE 104 mmol/L (98-107); CREATININE 0.8 mg/dL (0.6-1.3); GLUCOSE 129 mg/dL (74-106); PHOSPHORUS 3.1 mg/dL (2.5-4.9); POTASSIUM 3.9 mmol/L (3.5-5.1); SODIUM SERUM 139 mmol/L (136-145); TOTAL PROTEIN, SERUM 6.8 g/dL (6.4-8.2); UREA NITROGEN, BLOOD 32 mg/dL (7-18)
--- NOTE | 2018-06-02 07:30 | NUR ---
MS [employer] LEAD CLOSING NOTES PT AWAKE AND ALERT WITH NO SIGNS OF ACUTE DISTRESS NOTED. STABLE KIKI THE NIGHT BUT SLEPT ON AND OFF. G-TUBE TOLERATED WELL, NO ASPIRATION NOTED.KIKI THE NIGHT. G-TUBE CLAMPED AT THIS TIME ORDERED. ALL DUE MEDS GIVEN AND ALL NEEDS MET. ON ISOLATION PRECAUTION IMPLEMENTED AND OBSERVED. SITTER AT THE BEDSIDE FOR PT SAFETY. ENDORSE TO AM NURSE FOR CONTINUITY OF CARE.
[2018-06-02 08:00] VITALS: BP 157/72
--- NOTE | 2018-06-02 08:00 | NUR ---
MS RN AM NOTES RECEIVED PATIENT AWAKE AND CALM IN BED WITH NO DISTRESS NOTED. CALL LIGHT WITHIN REACH. 1:1 SITTER AT BEDSIDE. NO RESPIRATORY DISTRESS NOTED. PERIPHERAL LINE INTACT AND PATENT. GTF RUNNING AT 65 ML/HR WHICH IS OFF AT THIS TIME AND WILL BE ON AT 11AM. AM MEDS GIVEN AND NO RESIDUALS NOTED.HOB ELEVATED WHEN GT FEEDING IS ON.NO C/O PAIN OR DISCOMFORT. BED IN LOW LOCK SETTING. WILL CONTINUE TO MONITOR.
[2018-06-02] MEDS: LACTOBACILLUS RHAMNOSUS GG 1 EACH CAP.SPRINK PO SCH ×2 (09:52→17:18)
[2018-06-02] MEDS: FERROUS SULFATE (325 MG) 325 MG/TAB TABLET GT SCH (09:52)
[2018-06-02] MEDS: FAMOTIDINE (20 MG) 20 MG TABLET GT SCH (09:52)
[2018-06-02] MEDS: MULTIVIT W/MINERALS 1 TAB TABLET GT SCH (09:53)
[2018-06-02] MEDS: AMLODIPINE BESYLATE 5 MG TABLET GT SCH (09:53)
[2018-06-02] MEDS: HYDROCODONE/APAP 5/325MG 1 EACH TABLET GT SCH (09:53)
[2018-06-02] MEDS: risperiDONE 0.25 MG TABLET PO SCH ×2 (09:53→20:26)
[2018-06-02] MEDS: RIVASTIGMINE TARTRATE 1.5 MG CAPSULE GT SCH ×2 (09:55→20:29)
[2018-06-02] MEDS: HEPARIN SODIUM, PORCINE 5000 UNITS/1 ML VIAL SQ SCH ×2 (09:55→20:45)
[2018-06-02] MEDS: PROSOURCE / PROSTAT (PYXIS) 30 ML UDC GT SCH ×2 (09:57→17:18)
[2018-06-02] MEDS: LEVOTHYROXINE SODIUM 50 MCG TABLET GT SCH (10:01)
[2018-06-02] MEDS: ASPIRIN EC 81 MG TABLET.DR PO SCH (10:07)
--- NOTE | 2018-06-02 10:08 | NUR ---
DROPPED ASA EC 81 MG PILL IN THE FLOOR,REPLACED A NEW ONE FROM [facility].
--- NOTE | 2018-06-02 10:49 | NUR ---
Residual output zero prior to medication administration Addendum: 06/02/18 at 1050 by BRIANA HAYDEN RN Amended: Links added.
[2018-06-02] MEDS ORDERED: BUMETANIDE INJ 8 MG in IV NS 0.9% 48 ML IV ONE (11:00)
[2018-06-02] MEDS: JEVITY 1.2 CAL 1,000 ML BOTTLE GT PRN (17:18)
[2018-06-02 18:00] VITALS: BP 145/85
--- NOTE | 2018-06-02 19:13 | NUR ---
RN NOTES RECEIVE PT IN BED A/O X 1, CONFUSED IN STABLE CONDITION, NOT IN DISTRESS, SAFETY MEASURES IN PLACE. WILL CONTINUE TO MONITOR.
[2018-06-02 20:00] VITALS: BP 130/57
[2018-06-02] MEDS: SENNOSIDES 8.6 MG TABLET GT SCH (21:13)
[2018-06-03 06:32] LABS: BASOPHILS % (AUTO) 0.7 % (0.0-2.0); EOSINOPHILS % (AUTO) 2.3 % (0.0-6.0); HEMATOCRIT 36 % (33-45); HEMOGLOBIN 11.8 g/dL (11.5-14.8); LYMPHOCYTES # (AUTO) 0.8 /CMM (0.8-4.8); LYMPHOCYTES % (AUTO) 12.3 % (20.0-44.0); MEAN CORPUSCULAR HGB CONC 33 g/dl (31.0-36.0); MEAN CORPUSCULAR VOLUME 81 fL (82-100); MONOCYTES # (AUTO) 0.7 /CMM (0.1-1.30); MONOCYTES % (AUTO) 10.2 % (2.0-12.0); NEUTROPHILS # (AUTO) 4.8 /CMM (1.8-8.9); NEUTROPHILS % (AUTO) 74.5 % (43.0-81.0); PLATELET COUNT (AUTO) 416 /CMM (150-450); RED BLOOD CELL COUNT(AUTO) 4.44 MIL/uL (4.0-5.2); WHITE BLOOD COUNT (AUTO) 6.5 K/uL (4.3-11.0)
--- NOTE | 2018-06-03 06:32 | NUR ---
MS RN CLOSING NOTE ASLEEP AND EASILY AWAKEN, RESPIRATIONS EVEN AND UNLABORED. AM CARE RENDERED. NOT IN DISTRESS, IN STABLE CONDITION, NURSING CARE RENDERED, KEPT CLEAN AND DRY AND COMFORT, NEEDS ATTENDED AND ANTICIPATED. REPOSITIONED EVERY 2 HOURS, 1:1 SITTER AT BEDSIDE, SAFETY MEASURES IN PLACE, CALL LIGHT WITHIN REACH. WILL ENDORSE TO PUBLIC HEALTH PROGRAM MANAGER FOR ARNOL.
[2018-06-03 06:41] LABS: ALANINE AMINOTRANSFERASE 32 U/L (12-78); ALKALINE PHOSPHATASE 84 U/L (46-116); ASPARTATE AMINOTRANSFERASE 20 U/L (15-37); BILIRUBIN,TOTAL 0.4 mg/dL (0.2-1.0); CALCIUM, SERUM 8.5 mg/dL (8.5-10.1); CARBON DIOXIDE 28 mmol/L (21-32); CHLORIDE 100 mmol/L (98-107); GLUCOSE 153 mg/dL (74-106); MAGNESIUM 2.1 mg/dL (1.8-2.4); PHOSPHORUS 4.8 mg/dL (2.5-4.9); POTASSIUM 3.7 mmol/L (3.5-5.1); SODIUM SERUM 138 mmol/L (136-145); TOTAL PROTEIN, SERUM 7.4 g/dL (6.4-8.2); UREA NITROGEN, BLOOD 56 mg/dL (7-18)
--- NOTE | 2018-06-03 07:06 | NUR ---
MS RN NOTES PATIENT IN BED EYES CLOSED, RESPONSIVE TO VERBAL AND TACTILE STIMULI. HEAD OF BED ELEVATED. NO ACUTE DISTRESS NOTED. BREATHING UNLABORED. NO SOB NOTED. NO FACIAL GRIMACING NOTED. SITTER AT BEDSIDE. PEG INTACT INFUSING PRESCRIBED TUBE FEEDING, NO REDNESS AROUND THE AREA. IV ACCESS PATENT AND INTACT, NO REDNESS OR SWELLING NOTED. SAFETY MEASURES IN PLACE. CALL LIGHT WITHIN REACH. WILL CONTINUE TO MONITOR ACCORDINGLY.
[2018-06-03] MEDS: MULTIVIT W/MINERALS 1 TAB TABLET GT SCH (08:26)
[2018-06-03] MEDS: FERROUS SULFATE (325 MG) 325 MG/TAB TABLET GT SCH (08:26)
[2018-06-03] MEDS: risperiDONE 0.25 MG TABLET PO SCH (08:26)
[2018-06-03] MEDS: ASPIRIN EC 81 MG TABLET.DR PO SCH (08:26)
[2018-06-03] MEDS: LACTOBACILLUS RHAMNOSUS GG 1 EACH CAP.SPRINK PO SCH (08:26)
[2018-06-03] MEDS: LEVOTHYROXINE SODIUM 50 MCG TABLET GT SCH (08:26)
[2018-06-03] MEDS: FAMOTIDINE (20 MG) 20 MG TABLET GT SCH (08:26)
[2018-06-03 08:27] VITALS: BP 121/84
[2018-06-03] MEDS: AMLODIPINE BESYLATE 5 MG TABLET GT SCH (08:27)
[2018-06-03] MEDS: HYDROCODONE/APAP 5/325MG 1 EACH TABLET GT SCH (08:28)
[2018-06-03] MEDS: HEPARIN SODIUM, PORCINE 5000 UNITS/1 ML VIAL SQ SCH (08:31)
[2018-06-03] MEDS: RIVASTIGMINE TARTRATE 1.5 MG CAPSULE GT SCH (08:31)
[2018-06-03] MEDS: PROSOURCE / PROSTAT (PYXIS) 30 ML UDC GT SCH (08:32)
[2018-06-03] MEDS: JEVITY 1.2 CAL 1,000 ML BOTTLE GT PRN (09:08)
[2018-06-03] MEDS ORDERED: MERO1VIA3 IV (10:21)
--- NOTE | 2018-06-03 10:24 | NUR ---
MS RN NOTES SEEN AND EVALUATED BY DR SHAGUFTA ARNOLD WITH NEW ORDERS MADE. NOTED AND CARRIED OUT.
--- NOTE | 2018-06-03 11:30 | NUR ---
MS RN NOTES INSERTED 16 FR LANG CATHETER USING ASEPTIC TECHNIQUE. BULB INFLATED WITH 10MLS STERILE SALINE. CATHETER SECURED TO RIGHT INNER THIGH. 150MLS CLEAR YELLOW URINE RETURN NOTED IN BAG. PATIENT TOLERATED WELL. SAFETY MEASURES IN PLACE. CALL LIGHT WITHIN REACH.
--- NOTE | 2018-06-03 16:00 | NUR ---
MS YOUNG ADULT LIBRARIAN NOTES PATIENT DISCHARGE TO [facility] WITH STABLE VITAL SIGNS. NO ACUTE DISTRESS NOTED. BREATHING UNLABORED. NO SOB NOTED. NO FACIAL GRIMACING NOTED. PEG INTACT AND PATENT, NO REDNESS AROUND THE AREA.IV ACCESS INTACT AND PATENT, NO REDNESS OR SWELLING NOTED. LANG CATHETER INTACT, DRAINING 200 ML URINE, CLEAR AND YELLOW. DISCHARGE INSTRUCTIONS REPORT GIVEN TO ARTHUR OF [facility]. NEEDS ATTENDED AND ANTICIPATED. PICKED UP VIA AMBULANCE IN A GURNEY ACCOMPANIED BY 2 EMT PERSONNEL IN STABLE CONDITION. ALL BELONGINGS ACCOUNTED FOR.
[2018-08-07] MEDS ORDERED: OLAN2.5T3 GT ×3 (12:18)
[2018-08-07] MEDS ORDERED: LACT1CAP72 GT (12:18)
[2018-08-07] MEDS ORDERED: ACET1OOV6 NEB (12:18)
[2018-08-07] MEDS ORDERED: NYST15CR TP (12:18)
[2018-08-07] MEDS ORDERED: AMLO5TAB9 GT (12:18)
[2018-08-07] MEDS ORDERED: LOSA25TA3 PO (12:18)
[2018-08-07] MEDS ORDERED: VALP250S22 GT (12:18)
== END 2018-06-03 16:00 | DRG 193 ==
LOC: ER 08:16 → TELE 10:34 → MED 05-31 09:59
PROVIDERS: ADMIT Nurse Practitioner Acute Care; ATTEND Family Medicine
DX: J15.9 Unspecified bacterial pneumonia (principal); G93.41 Metabolic encephalopathy; J96.01 Acute respiratory failure with hypoxia; N17.0 Acute kidney failure with tubular necrosis; I50.33 Acute on chronic diastolic (congestive) heart failure; E44.0 Moderate protein-calorie malnutrition; N39.0 Urinary tract infection, site not specified; E87.2 Acidosis; J15.6 Pneumonia due to other Gram-negative bacteria; I11.0 Hypertensive heart disease with heart failure; F03.90 Unspecified dementia, unspecified severity, without behavioral disturbance, psychotic disturbance, mood disturbance, and anxiety; K21.9 Gastro-esophageal reflux disease without esophagitis; E03.9 Hypothyroidism, unspecified; F20.9 Schizophrenia, unspecified; F01.50 Vascular dementia, unspecified severity, without behavioral disturbance, psychotic disturbance, mood disturbance, and anxiety; L89.150 Pressure ulcer of sacral region, unstageable; L22 Diaper dermatitis; D32.9 Benign neoplasm of meninges, unspecified; B96.20 Unspecified Escherichia coli [E. coli] as the cause of diseases classified elsewhere; Z16.12 Extended spectrum beta lactamase (ESBL) resistance; D64.9 Anemia, unspecified; I25.2 Old myocardial infarction; R13.10 Dysphagia, unspecified; R32 Unspecified urinary incontinence; Z86.14 Personal history of Methicillin resistant Staphylococcus aureus infection; Z86.19 Personal history of other infectious and parasitic diseases; Z87.440 Personal history of urinary (tract) infections; Z93.1 Gastrostomy status
CPT/HCPCS: 36415; 36600; 71045-TC; 80048-TC; 80053-TC; 80061-TC; 80076-TC; 80202-TC; 81000-TC; 82803-TC; 83605-TC; 83735-TC; 83880; 84100-TC; 84484-TC; 85025-TC; 85730-TC; 87040-TC; 87081-TC; 87086-TC; 87186-TC; 87400; 97110-TC; 97116-TC; 97530-TC; A4216; C9113; G0378; J1644; J1940; J1956; J2185; J2543; J2930; J3370; J3490; J7030; J7060

== ENCOUNTER 2018-07-16 09:18 | Inpatient (IN) | payer MEDICARE ==
[~2018-07-16] VITALS: Ht 165.1 cm; Wt 54.0 kg
[2018-07-16] VITALS (31 sets, daily range): BP systolic 88–158; BP diastolic 36–72
[~2018-07-16 09:18] MED LIST changes: -CRAN3875 GT; -ENOX40DI SQ; +HYDR-4384 GT; +MERO1VIA3 IV; -MERO500V IV; -METO5SOL2 GT; +ONDA4TAB5 GT; -RXVAN XX; -ZINC220C8 GT
--- NOTE | 2018-07-16 09:27 | NUR ---
ETOMIDATE 15 MG IVP AND SUCCINYLCHOLINE 100MG IVP GIVEN ORDERED BY DR. DURON.
--- NOTE | 2018-07-16 09:28 | NUR ---
BIBRA 102 from 4 seasons for ALOC and mild distress, SPO2 this AM prior to valve repairer reclamation arrival to scene 64%, RF=285 in the field, Yissel on auscultation, pt is on NR at 15L with UQP1=652% on arrival. Bruise (greenish color) noted on right forhead. Placed on the monitor. Skin is warm and dry. Dr Sampson at BS for eval.
--- NOTE | 2018-07-16 09:28 | NUR ---
INTUBATION DONE BY DR. DURON, ET SIZE 7.5 23 AT THE LIP.
--- NOTE | 2018-07-16 09:29 | NUR ---
MECH VENT SET UP DONE BY RT.
[2018-07-16] MEDS ORDERED: CEFEPIME 1 GM in IV D5W 50 ML IV STA (09:31)
[2018-07-16] MEDS ORDERED: VANCOMYCIN 1 GM in IV D5W 250 ML IV STA (09:31)
--- NOTE | 2018-07-16 09:39 | NUR ---
ER PHLEB AT BEDSIDE FOR BLOOD DRAW.
[2018-07-16] MEDS ORDERED: PROPOFOL 100 ML ONE (09:40)
--- NOTE | 2018-07-16 09:43 | NUR ---
RT NOTE PT INTUBATED PER MD ORDER. 7.5 ETT 23 CM AT LIP. CUFF INFLATED. SETTINGS FOLLOW AC 16 450 50% +5. ALARMS SET PER PROTOCOL AND AUDIBLE. VENT PLUGGED IN TO RED OUTLET. BILATERAL CHEST RISE NOTED. AMBU BAG AT BED SIDE. NO DISTRESS NOTED AT MOMENT. Addendum: 07/16/18 at 0946 by MARCELLUS PERKINS RT Amended: Links added.
[2018-07-16] MEDS ORDERED: IV NS 0.9% 1,000 ML BAG IV ONE (10:00)
[2018-07-16] MEDS ORDERED: PROPOFOL 100 ML IV PRN (10:00)
--- NOTE | 2018-07-16 10:00 | NUR ---
LEAF CONDITIONER HELPER AT BEDSIDE FOR XRAY.
[2018-07-16 10:02] LABS: BASOPHILS # (AUTO) 0.1 /CMM (0.0-0.2); BASOPHILS % (AUTO) 0.3 % (0.0-2.0); EOSINOPHILS % (AUTO) 0.2 % (0.0-6.0); HEMATOCRIT 36 % (33-45); HEMOGLOBIN 11.7 g/dL (11.5-14.8); LYMPHOCYTES # (AUTO) 0.8 /CMM (0.8-4.8); MEAN CORPUSCULAR HGB CONC 33 g/dl (31.0-36.0); MEAN CORPUSCULAR VOLUME 80 fL (82-100); MONOCYTES # (AUTO) 1.1 /CMM (0.1-1.30); MONOCYTES % (AUTO) 5.6 % (2.0-12.0); NEUTROPHILS % (AUTO) 89.9 % (43.0-81.0); PLATELET COUNT (AUTO) 415 /CMM (150-450); RED BLOOD CELL COUNT(AUTO) 4.49 MIL/uL (4.0-5.2); WHITE BLOOD COUNT (AUTO) 18.9 K/uL (4.3-11.0)
[2018-07-16] MEDS ORDERED: ASPI-1169 GT (10:03)
[2018-07-16] MEDS ORDERED: VIT500LI GT (10:03)
[2018-07-16] MEDS ORDERED: FERR300L GT (10:03)
[2018-07-16 10:04] LABS: APPEARANCE,URINE Turbid (CLEAR); BILIRUBIN,URINE Negative (NEGATIVE); BLOOD, URINE Moderate Ery/uL (NEGATIVE); COLOR,URINE Yellow (YELLOW); KETONES,URINE Negative (NEGATIVE); LEUKOCYTE ESTERASE ,URINE Small (NEGATIVE); NITRITE, URINE Positive (NEGATIVE); PROTEIN,URINE >=300 mg/dl (NEGATIVE); UGLUCOSE Negative (NEGATIVE); UROBILINOGEN,URINE 0.2 EU/dL (0.2)
[2018-07-16 10:05] LABS: PH,URINE >9.0 (5.0-8.0)
[2018-07-16 10:11] LABS: CALCIUM, SERUM 8.9 mg/dL (8.5-10.1); CARBON DIOXIDE 27 mmol/L (21-32); CHLORIDE 102 mmol/L (98-107); CREATININE 1.1 mg/dL (0.6-1.3); GLUCOSE 130 mg/dL (74-106); POTASSIUM 5.4 mmol/L (3.5-5.1); SODIUM SERUM 135 mmol/L (136-145); UREA NITROGEN, BLOOD 49 mg/dL (7-18)
[2018-07-16 10:25] LABS: ABG BASE EXCESS -0.9 mmol/L; ABG OXYGEN SATURATION 96.9 % (92.0-98.5); ABG PCO2 37.4 mmHg (35.0-45.0); ABG PH 7.415 (7.350-7.450); ABG PO2 105.5 mmHg (75.0-100.0); AaDO2 208.9 mmHg; COHb 0.4 % (0.5-1.5); MetHb 0.4 % (0.0-1.5); O2Hb 96.1 % (94.0-97.0); PEEP,BG 5 cm H2O; SITE, ABG Right Radial; VENT MODE, BG AC 16 450 50% +5; VT, ABG 450 mL
[2018-07-16 10:25] LABS: ALANINE AMINOTRANSFERASE 22 U/L (12-78); ALBUMIN 3.2 g/dL (3.4-5.0); ALKALINE PHOSPHATASE 99 U/L (46-116); ASPARTATE AMINOTRANSFERASE 20 U/L (15-37); BILIRUBIN,DIRECT 0.1 mg/dL (0.0-0.2); BILIRUBIN,TOTAL 0.3 mg/dL (0.2-1.0); TOTAL PROTEIN, SERUM 8.2 g/dL (6.4-8.2)
--- NOTE | 2018-07-16 10:25 | NUR ---
REPORT GIVEN TO BRADLEY RAO FOR ARNOL. WITH ONGOING IV FLUIDS AND ANTIBIOTIC.
[2018-07-16 10:26] LABS: BACTERIA,URINE 4+ /HPF (None Seen); SQUAMOUS EPITHELIAL CELL,UR Moderate /HPF (None Seen); TRIPLE PHOSPHATE CRYSTAL,UR Moderate /HPF (None Seen); WBC,URINE 0-2 /HPF (0-3)
[2018-07-16 10:27] LABS: MUCUS,URINE Moderate /LPF (None Seen)
--- NOTE | 2018-07-16 10:33 | NUR ---
Paged [facility] --- cleaning validation consultant is Dr Marquez.
[2018-07-16] MEDS ORDERED: FEE PK DOSING 1 MIN EA MC ONE (11:13)
--- NOTE | 2018-07-16 11:27 | NUR ---
RT NOTE PT TRANSFERRED TO ICU ROOM 258. PLACED BACK ON VENT ON PREVIOUS SETTINGS. NO DISTRESS NOTED. ENDORSED PT TO [facility]. PT HAS 7.[address]. 23 CM AT LIP. ETT SECURE. CUFF INFLATED. Addendum: 07/16/18 at 1129 by MARCELLUS PERKINS RT Amended: Links added.
[2018-07-16] MEDS ORDERED: ACETAMINOPHEN 325 MG TABLET PO PRN (11:30)
[2018-07-16] MEDS ORDERED: BISACODYL SUPP (10 MG) 10 MG/SUPP.RECT SUPP.RECT RC PRN (11:30)
[2018-07-16] MEDS ORDERED: MAG HYDROX/AL HYDROX/SIMETH 30 ML UDC PO PRN (11:30)
[2018-07-16] MEDS ORDERED: MAGNESIUM HYDROXIDE 30 ML UDC PO PRN ×2 (11:30)
[2018-07-16] MEDS ORDERED: CEFEPIME 1 GM in IV NS 0.9% 50 ML IV SCH (11:30)
[2018-07-16] MEDS ORDERED: HYDROCODONE/APAP 5/325MG 1 EACH TABLET PO PRN (11:30)
[2018-07-16] MEDS ORDERED: NA PHOS,M-B/NA PHOS,DI-BA 1 EA ENEMA RC PRN (11:30)
[2018-07-16] MEDS ORDERED: ZOLPIDEM TARTRATE 5 MG TABLET PO PRN (11:30)
[2018-07-16] MEDS ORDERED: ONDANSETRON HCL/PF 4 MG/2 ML VIAL IVP PRN (11:30)
[2018-07-16] MEDS ORDERED: SUCCINYLCHOLINE CHLORIDE 20 MG/ML VIAL IV ONE (11:51)
[2018-07-16] MEDS ORDERED: ETOMIDATE 2 MG/ML VIAL IV ONE (11:51)
[2018-07-16] MEDS ORDERED: LEVOFLOXACIN 500 MG /D5W 100ML 500 MG in PREMIX 1 EA IV ONE (12:00)
[2018-07-16] MEDS: ENOXAPARIN SODIUM 30 MG/0.3 ML DISP.SYRIN SQ SCH (12:08)
[2018-07-16] MEDS: IV NS 0.9% 1,000 ML IV SCH ×2 (12:10→21:49)
[2018-07-16] MEDS: PROSOURCE / PROSTAT (PYXIS) 30 ML UDC GT SCH (12:11)
--- NOTE | 2018-07-16 12:40 | NUR ---
received pt from ER, Res Failure s/t PNA, sedated on Diprivan at 5mcg, intubated, lungs congested, no edema, new f/c inserted, NPO, GT clamped, vanco and cefepime given in ER and 2L NS per sepsis protocol, v/s stable, no pain, pt cleaned, changed and repositioned.
[2018-07-16 12:56] LABS: ALBUMIN 2.6 g/dL (3.4-5.0); BILIRUBIN,DIRECT 0.1 mg/dL (0.0-0.2); BILIRUBIN,TOTAL 0.5 mg/dL (0.2-1.0); TOTAL PROTEIN, SERUM 6.6 g/dL (6.4-8.2)
--- NOTE | 2018-07-16 13:40 | NUR ---
RT PT RECEIVED ORALLY INTUBATED WITH 7.0 ETT SECURED AT 23CM AT THE LIP LINE. PT IS ON THE VENT WITH NOTED SETTINGS. VENT ALARMS ARE SET AND AUDIBLE WITH BVM BY BEDSIDE. HEAD FIELD HOCKEY COACH CUFF PRESSURE NOTED. VENT IS PLUGGED INTO RED OUTLET. SX'D SMALL THICK PALE YELLOW SECRETIONS. NO RESPIRATORY DISTRESS NOTED AT THIS TIME, WILL CONTINUE TO MONITOR. Addendum: 07/16/18 at 1419 by SHAGUFTA ORTEGA RT Amended: Links added.
--- NOTE | 2018-07-16 16:50 | NUR ---
pt is resting in the bed, SB, sedated on Diprivan at 5mcg, v/s stable, no pain, OK urine output, restraints on, pt cleaned, changed and repositioned q2hrs.
--- NOTE | 2018-07-16 20:00 | NUR ---
Received patient lethargic off Diprivan gtt intubated on full vent support.Secretions suctioned PRN. Bilateral soft wrist restraints on for safety.SR per monitor.NPO with GT clamped.FC to gravity drainage. Turned and repositioned.No acute distress noted.IVF infusing well to right hand SL site intact. Continue monitoring.
[2018-07-16] MEDS: risperiDONE 0.25 MG TABLET PO SCH (21:00)
[2018-07-16] MEDS ORDERED: CEFEPIME 1 GM VIAL IM SCH (21:00)
[2018-07-16] MEDS: RIVASTIGMINE TARTRATE 1.5 MG CAPSULE GT SCH (21:00)
[2018-07-16] MEDS: SENNOSIDES 8.6 MG TABLET GT SCH (21:48)
[2018-07-16] MEDS ORDERED: VANCOMYCIN 500 MG VIAL ONE (22:17)
[2018-07-16] MEDS: VANCOMYCIN 500 MG in IV D5W 100 ML IV SCH (22:44)
[2018-07-17] VITALS (43 sets, daily range): BP systolic 81–155; BP diastolic 36–77
[2018-07-17 04:54] LABS: BASOPHILS # (AUTO) 0.1 /CMM (0.0-0.2); BASOPHILS % (AUTO) 0.9 % (0.0-2.0); EOSINOPHILS % (AUTO) 0.8 % (0.0-6.0); HEMATOCRIT 32 % (33-45); HEMOGLOBIN 10.3 g/dL (11.5-14.8); LYMPHOCYTES # (AUTO) 0.7 /CMM (0.8-4.8); LYMPHOCYTES % (AUTO) 6.6 % (20.0-44.0); MEAN CORPUSCULAR HGB CONC 33 g/dl (31.0-36.0); MEAN CORPUSCULAR VOLUME 81 fL (82-100); MONOCYTES % (AUTO) 10.4 % (2.0-12.0); NEUTROPHILS # (AUTO) 8.1 /CMM (1.8-8.9); NEUTROPHILS % (AUTO) 81.3 % (43.0-81.0); PLATELET COUNT (AUTO) 304 /CMM (150-450); RED BLOOD CELL COUNT(AUTO) 3.89 MIL/uL (4.0-5.2); WHITE BLOOD COUNT (AUTO) 9.9 K/uL (4.3-11.0)
[2018-07-17 05:05] LABS: CALCIUM, SERUM 8.4 mg/dL (8.5-10.1); CARBON DIOXIDE 24 mmol/L (21-32); CHLORIDE 107 mmol/L (98-107); GLUCOSE 78 mg/dL (74-106); MAGNESIUM 1.9 mg/dL (1.8-2.4); PHOSPHORUS 3.1 mg/dL (2.5-4.9); SODIUM SERUM 141 mmol/L (136-145); UREA NITROGEN, BLOOD 42 mg/dL (7-18)
[2018-07-17 05:54] LABS: CHOLESTEROL 119 mg/dL (<200); HDL CHOLESTEROL 46 mg/dL (40-60); LDL 70 mg/dL (0-99); TRIGLYCERIDES 64 mg/dL (30-150)
--- NOTE | 2018-07-17 06:40 | NUR ---
No significant changed noted on patient status.VS remains stable.SR.Tolerating vent settings. AM care done.Oral care done.Turned and repositioned.IVF infusing well.No BM noted.will endorse to day shift for continuity of care.
--- NOTE | 2018-07-17 07:10 | NUR ---
CIRCUS ROUSTABOUT INITIAL NOTES RECEIVED PT FROM NIGHTSHIFT RN IN STABLE CONDITION. PT INTUBATED RECEIVING VENTILATOR SUPPORT. VENT SETTINGS CHECKED FOR ACCURACY. ( AC 16, TV 450, FIO2 40%, PEEP 5). PT TOLERATING SETTINGS WELL. NO SOB OR ACUTE SIGNS OF DISTRESS NOTED. BREATHING EVEN AND UNLABORED. PT SATING WELL AT 100%. VSS. PT CURRENTLY SR ON THE TELE MONITOR. IV TO RIGHT AND LEFT HAND NOTED TO BE PATENT AND INTACT. NO REDNESS OR SIGNS OF INFILTRATION NOTED. BED IN LOW LOCKED POSITION, SIDE RAILS UP X3, BILATERAL SOFT WRIST RESTRAINTS NOTED. WILL CONTINUE TO MONITOR
[2018-07-17] MEDS: FERROUS SULFATE UDC 300 MG/5 ML UDC GT SCH (08:24)
[2018-07-17] MEDS: AMLODIPINE BESYLATE 5 MG TABLET GT SCH (08:24)
[2018-07-17] MEDS: FAMOTIDINE (20 MG) 20 MG TABLET GT SCH (08:24)
[2018-07-17] MEDS: LEVOTHYROXINE SODIUM 50 MCG TABLET GT SCH (08:24)
[2018-07-17] MEDS: ENOXAPARIN SODIUM 30 MG/0.3 ML DISP.SYRIN SQ SCH (08:25)
[2018-07-17] MEDS: ASCORBIC ACID 500 MG TABLET GT SCH ×2 (08:25→16:46)
[2018-07-17] MEDS: ASPIRIN 81 MG TAB.CHEW GT SCH (08:25)
[2018-07-17] MEDS: PANTOPRAZOLE 40 MG TABLET.DR PO SCH (08:25)
[2018-07-17] MEDS: HYDROCODONE/APAP 5/325MG 1 EACH TABLET GT SCH (08:26)
[2018-07-17] MEDS: MULTIVIT W/MINERALS 1 TAB TABLET GT SCH (08:26)
[2018-07-17] MEDS: risperiDONE 0.25 MG TABLET PO SCH ×2 (08:26→20:51)
[2018-07-17] MEDS: IV NS 0.9% 1,000 ML IV SCH (08:27)
[2018-07-17] MEDS: PROSOURCE / PROSTAT (PYXIS) 30 ML UDC GT SCH (08:29)
[2018-07-17] MEDS: RIVASTIGMINE TARTRATE 1.5 MG CAPSULE GT SCH ×2 (09:07→20:42)
[2018-07-17] MEDS: PROPOFOL 100 ML IV PRN ×2 (09:07→20:42)
[2018-07-17 09:09] LABS: ABG BASE EXCESS -4.9 mmol/L; ABG OXYGEN SATURATION 97.2 % (92.0-98.5); ABG PCO2 30.5 mmHg (35.0-45.0); ABG PH 7.409 (7.350-7.450); ABG PO2 108.5 mmHg (75.0-100.0); AaDO2 141.6 mmHg; COHb 0.3 % (0.5-1.5); MetHb 0.5 % (0.0-1.5); O2Hb 96.4 % (94.0-97.0); SITE, ABG Right Femoral
[2018-07-17] MEDS ORDERED: CEFEPIME 2 GM in IV D5W 100 ML IV SCH (10:00)
[2018-07-17] MEDS ORDERED: CEFEPIME 1 GM in IV D5W 50 ML IV SCH (10:00)
[2018-07-17] MEDS: VANCOMYCIN 500 MG in IV D5W 100 ML IV SCH ×2 (12:38→22:54)
[2018-07-17] MEDS: LACTOBACILLUS RHAMNOSUS GG 1 EACH CAP.SPRINK GT SCH (16:46)
--- NOTE | 2018-07-17 19:03 | NUR ---
SECTION BEAMER CLOSING NOTES PT REMAIN STABLE ON VENT. INVASIVE LINES REMAIN PATENT AND INTACT. PT TOLERATING DIPRIVAN DRIP @ 30 MCS/KG/MIN WELL ALONG WITH NS AT 100ML/HR. GTUBE REMAINS PATENT AND INTACT. LANG CATHETER REMAINS C/DI/. WILL ENDORSE TO VLAD RN FOR ARNOL Addendum: 07/17/18 at 1906 by ERWIN ASKEW RN CONTACT PRECAUTIONS INITIATED FOR MRSA NARES
[2018-07-17] MEDS: IV NS 0.9% 1,000 ML IV PRN (19:13)
--- NOTE | 2018-07-17 20:00 | NUR ---
RN NOTES RECEIVED PT ORALLY INTUBATED WITH ETT 7.5 AND 23 CM AT LIP. WITH VENT SETTING AC 16 TV 450 FIO2 40% PEEP 5 TOLERATED WELL SATURATION 100%. PT IS SEDATED WITH DIPRIVAN. RESPONSIVE TO TACTILE STIMULI AND RESPONSE TO PAIN. TELE MONITOR REVEALS SB AND SR. IV SITE ON RIGHT HAND WITH NS @ 100ML.HR AND RFA G 20 RUNNING WITH DIPRIVAN @ 30 MCG/KG/MIN. F/C DRAINED WITH YELLOW CLEAR COLOR URINE. TURNED AND REPOSITIONED FOR SKIN CARE AND COMFORT. KEPT PT CLEAN AND DRY WILL CONTINUE TO MONITOR.
[2018-07-17] MEDS: MUPIROCIN OINT 2% 22 GM TUBE SCH (20:42)
[2018-07-17] MEDS: CEFEPIME 2 GM in IV D5W 100 ML IV SCH (20:42)
[2018-07-17] MEDS: SENNOSIDES 8.6 MG TABLET GT SCH (21:16)
[2018-07-18] VITALS (57 sets, daily range): BP systolic 94–153; BP diastolic 36–83
[2018-07-18 05:16] LABS: BASOPHILS # (AUTO) 0.1 /CMM (0.0-0.2); BASOPHILS % (AUTO) 1.1 % (0.0-2.0); EOSINOPHILS % (AUTO) 3.2 % (0.0-6.0); HEMATOCRIT 29 % (33-45); HEMOGLOBIN 9.5 g/dL (11.5-14.8); LYMPHOCYTES # (AUTO) 0.6 /CMM (0.8-4.8); LYMPHOCYTES % (AUTO) 8.5 % (20.0-44.0); MEAN CORPUSCULAR HGB CONC 33 g/dl (31.0-36.0); MEAN CORPUSCULAR VOLUME 80 fL (82-100); MONOCYTES # (AUTO) 0.8 /CMM (0.1-1.30); MONOCYTES % (AUTO) 10.6 % (2.0-12.0); NEUTROPHILS # (AUTO) 5.8 /CMM (1.8-8.9); NEUTROPHILS % (AUTO) 76.6 % (43.0-81.0); PLATELET COUNT (AUTO) 293 /CMM (150-450); RED BLOOD CELL COUNT(AUTO) 3.62 MIL/uL (4.0-5.2); WHITE BLOOD COUNT (AUTO) 7.6 K/uL (4.3-11.0)
--- NOTE | 2018-07-18 05:35 | NUR ---
RT pt orally intubated on AC [facility] vent settings t/o the night. no resp distress noted. Addendum: 07/18/18 at 0537 by ANGEL MAK RT Amended: Links added.
[2018-07-18 05:46] LABS: CALCIUM, SERUM 8.3 mg/dL (8.5-10.1); CARBON DIOXIDE 24 mmol/L (21-32); CHLORIDE 109 mmol/L (98-107); CREATININE 0.8 mg/dL (0.6-1.3); GLUCOSE 67 mg/dL (74-106); MAGNESIUM 1.8 mg/dL (1.8-2.4); PHOSPHORUS 3.1 mg/dL (2.5-4.9); POTASSIUM 3.5 mmol/L (3.5-5.1); SODIUM SERUM 142 mmol/L (136-145); UREA NITROGEN, BLOOD 31 mg/dL (7-18)
[2018-07-18 05:56] LABS: CHOLESTEROL 111 mg/dL (<200); HDL CHOLESTEROL 39 mg/dL (40-60); LDL 65 mg/dL (0-99); TRIGLYCERIDES 73 mg/dL (30-150)
[2018-07-18] MEDS: IV NS 0.9% 1,000 ML IV PRN ×2 (07:00→17:48)
--- NOTE | 2018-07-18 07:00 | NUR ---
RN NOTES RECEIVED PT ON BED, ORALLY INTUBATED WITH ETT 7.5 AND 23 CM AT LIP.ON VENT TOLERATING CURRENT SETTING WELL, NO DISTRESS NOTED O2 SAT 100%, ON DIPRIVAN AT 15MCG/KG/MIN,SEDATED, RESPONSIVE TO TACTILE STIMULI, ON TELE SB HR IN [place]HAUN 50'S, RIGHT HAND IV SITE G 20 AND R FA IV SITE G 20 CLEAN, DRY AND INTACT, LANG DRINING TO GRAVITY WITH YELLOW CLEAR COLOR URIN, SOFT JOSE WRIST PROTECTIVE DEVICE ON FOR PT SAFETY , SR UPx3, AIDA LIGHT WITHIN EASY REACH, BED LOCKED AND IN LOWEST POSITION, CONTINUE TO MONITOR.
--- NOTE | 2018-07-18 07:15 | NUR ---
RN NOTES PATIENT REMAINED INTUBATED ET AND VENT SETTING TOLERATED WELL. SATURATION REMAINED 100%. AFEBRILE. VSS SINUS FIORELLA ON TELE MONITOR HR WENT DOWN TO 47 ONETIME. CONTINUE WITH DIPRIVAN AT 15 MCG/KG/MIN. 2 IV SITE INTACT AND PATENT RUNNING WITH NS AND DIPRIVAN TOLERATED WELL. BED BATH DONE TOLERATED WELL. KEPT PT CLEAN AND DRY, ENDORSED CONTINUITY OF CARE TO AM NURSE.
[2018-07-18] MEDS: LACTOBACILLUS RHAMNOSUS GG 1 EACH CAP.SPRINK GT SCH ×2 (08:06→16:25)
[2018-07-18] MEDS: MULTIVIT W/MINERALS 1 TAB TABLET GT SCH (08:07)
[2018-07-18] MEDS: PANTOPRAZOLE 40 MG TABLET.DR PO SCH (08:07)
[2018-07-18] MEDS: LEVOTHYROXINE SODIUM 50 MCG TABLET GT SCH (08:07)
[2018-07-18] MEDS: ASPIRIN 81 MG TAB.CHEW GT SCH (08:07)
[2018-07-18] MEDS: FERROUS SULFATE UDC 300 MG/5 ML UDC GT SCH (08:07)
[2018-07-18] MEDS: HYDROCODONE/APAP 5/325MG 1 EACH TABLET GT SCH (08:07)
[2018-07-18] MEDS: risperiDONE 0.25 MG TABLET PO SCH ×2 (08:08→20:43)
[2018-07-18] MEDS: ASCORBIC ACID 500 MG TABLET GT SCH ×2 (08:08→16:25)
[2018-07-18] MEDS: AMLODIPINE BESYLATE 5 MG TABLET GT SCH (08:08)
[2018-07-18] MEDS: FAMOTIDINE (20 MG) 20 MG TABLET GT SCH (08:08)
[2018-07-18] MEDS: ENOXAPARIN SODIUM 30 MG/0.3 ML DISP.SYRIN SQ SCH (08:09)
[2018-07-18] MEDS: MUPIROCIN OINT 2% 22 GM TUBE SCH ×3 (08:24→21:22)
[2018-07-18] MEDS: CEFEPIME 2 GM in IV D5W 100 ML IV SCH ×2 (08:24→20:40)
[2018-07-18] MEDS: PROSOURCE / PROSTAT (PYXIS) 30 ML UDC GT SCH (08:58)
[2018-07-18] MEDS: RIVASTIGMINE TARTRATE 1.5 MG CAPSULE GT SCH ×2 (09:34→20:38)
[2018-07-18] MEDS: PROPOFOL 100 ML IV PRN ×2 (09:37→18:14)
[2018-07-18] MEDS: VANCOMYCIN 500 MG in IV D5W 100 ML IV SCH ×2 (11:51→22:57)
--- NOTE | 2018-07-18 12:00 | NUR ---
RN NOTES NO DISTRESS NOTED ,CONTINUE TO MONITOR.
[2018-07-18] MEDS: JEVITY 1.2 CAL 1,000 ML BOTTLE GT PRN (14:50)
[2018-07-18] MEDS: HYDROCODONE/APAP 5/325MG 1 EACH TABLET GT PRN (16:24)
--- NOTE | 2018-07-18 17:00 | NUR ---
BRADLEY NOTES DR. VEE NOTIFIED REGARDING ABG RESULTS , NEW ORDER RECEIVED . Addendum: 07/18/18 at 1936 by FITZ LONG RN PLEASE DISREGARD ABOVE CHARTING , CHARTED ON WRONG PT
--- NOTE | 2018-07-18 18:04 | NUR ---
RT RECD PT INTUBATED WITH 7.0 ETT 23 AT LIP INTACT AND SECURED ON MECH VENT ALARMS ON AND AUDIBLE BAG AND MASK AT HOB SX THIN YELLOW MODERATE AMOUNT OF SECRETIONS NO RESP DISTRESS THROUGHOUT SHIFT WILL CONT TO MONITOR
--- NOTE | 2018-07-18 18:06 | NUR ---
RT VENT CHANGES MADE AFTER ABG RATE 0F 14 TITRATED 02 30% PER MD QARNI Addendum: 07/18/18 at 1807 by MARCIAL MCCORMICK RT WRONG DOCUMENTATION Addendum: 07/18/18 at 1808 by MARCIAL MCCORMICK RT Amended: Links added.
--- NOTE | 2018-07-18 18:55 | NUR ---
RN NOTES TOLERING TF WELL , NO RESIDUAL NOTED, DEPROVAN AT 20 MCG/KG/MIN RUNNING VIA R UPPER ARM MIDLINE , SR UP x3, BED LOCKED AND LOWEST POSITION, NO SIGNIFICANT CHANGES NOTED ON THIS SHIFT, WILL ENDORSE TO PALLET STONE POSITIONER NURES FOR CONTINUITY OF CARE .
--- NOTE | 2018-07-18 19:20 | NUR ---
RN NOTES PT ORALLY INTUBATED WITH ETT 7.5 AND 23 CM AT LIP. TOLERATED VENT SETTING AC 16 TV 450 FIO2 40% PEEP 5 SATURATION 100%. PT IS SEDATED WITH DIPRIVAN. RESPONSIVE TO TACTILE STIMULI AND RESPONSE TO PAIN. TELE MONITOR REVEALS SB AND SR. IV SITE ON RIGHT HAND, RFA G 20 AND RIGHT UPPER ARM MIDLINE RUNNING WITH DIPRIVAN @ 20 MCG/KG/MIN. AN DNS @ 100 ML/HR INTACT AND PATENT. F/C DRAINED WITH YELLOW CLEAR COLOR URINE. TURNED AND REPOSITIONED FOR SKIN CARE AND COMFORT. PT CLEAN AND DRY
--- NOTE | 2018-07-18 20:22 | NUR ---
RECEIVED PT INTUBATED 7.0 ETT SECURED AT 23CM AT THE LIP. NO RESP DISTRESS NOTED. PT TOLERATING VENT SETTINGS. ETT SECURE, CUFF PROFESSOR OF ANTHROPOLOGY. SX'D FOR SML AMT OF THICK WHITE SECRETIONS. VENT ALARMS SET AND AUDIBLE. AMBU BAG AT BEDSIDE. WILL CONTINUE TO MONITOR. Addendum: 07/18/18 at 2023 by JEANNETTE GAMEZ RT Amended: Links added.
[2018-07-18] MEDS: SENNOSIDES 8.6 MG TABLET GT SCH (21:21)
[2018-07-19] VITALS (48 sets, daily range): BP systolic 98–150; BP diastolic 36–69
--- NOTE | 2018-07-19 00:10 | NUR ---
RN NOTES JEVITY 1.2 CHANGED FRO 30 ML/HR TO 40 ML.HR , PATENCY CHECKED. NO RESIDUAL. WILL CONTINUE TO MONITOR. HOB KEPT ELEVATED.
[2018-07-19 05:10] LABS: BASOPHILS # (AUTO) 0.1 /CMM (0.0-0.2); BASOPHILS % (AUTO) 0.8 % (0.0-2.0); EOSINOPHILS % (AUTO) 2.3 % (0.0-6.0); HEMATOCRIT 28 % (33-45); HEMOGLOBIN 9.5 g/dL (11.5-14.8); LYMPHOCYTES # (AUTO) 0.4 /CMM (0.8-4.8); LYMPHOCYTES % (AUTO) 4.4 % (20.0-44.0); MEAN CORPUSCULAR HGB CONC 34 g/dl (31.0-36.0); MEAN CORPUSCULAR VOLUME 79 fL (82-100); MONOCYTES # (AUTO) 0.8 /CMM (0.1-1.30); MONOCYTES % (AUTO) 8.4 % (2.0-12.0); NEUTROPHILS # (AUTO) 8.3 /CMM (1.8-8.9); NEUTROPHILS % (AUTO) 84.1 % (43.0-81.0); PLATELET COUNT (AUTO) 329 /CMM (150-450); RED BLOOD CELL COUNT(AUTO) 3.56 MIL/uL (4.0-5.2); WHITE BLOOD COUNT (AUTO) 9.8 K/uL (4.3-11.0)
[2018-07-19 05:22] LABS: CALCIUM, SERUM 8.3 mg/dL (8.5-10.1); CARBON DIOXIDE 22 mmol/L (21-32); CHLORIDE 111 mmol/L (98-107); CREATININE 0.7 mg/dL (0.6-1.3); GLUCOSE 93 mg/dL (74-106); POTASSIUM 3.1 mmol/L (3.5-5.1); SODIUM SERUM 144 mmol/L (136-145); UREA NITROGEN, BLOOD 24 mg/dL (7-18)
[2018-07-19] MEDS: IV NS 0.9% 1,000 ML IV PRN ×2 (05:32→15:57)
[2018-07-19] MEDS: PROPOFOL 100 ML IV PRN ×2 (05:33→15:00)
--- NOTE | 2018-07-19 07:05 | NUR ---
RN NOTES RECEIVED PT ON BED, ORALLY INTUBATED WITH ETT 7.5 AND 23 CM AT LIP. O2 SAT 98%, NO DISTRESS NOTED, TOLERATED CURRENT VENT SETTING AC 16 TV 450 FIO2 40% PEEP 5 WELL, SEDATED ON DIPRIVAN AT 20MCG/KG/MIN , RESPONSIVE TO TACTILE STIMULI AND RESPONSE TO PAIN. ON TELE SB, HR IN 50'S , RIGHT HAND, RFA G 20 AND RIGHT UPPER ARM MIDLINE SITES CLEAN, DRY AND INTACT, NS @ 100 ML/HR RUNNING VIA R UPPER ARM MIDLINE, LANG DRAINING TO GRAVITY WITH YELLOW CLEAR COLOR URINE. TURNED AND REPOSITIONED, SR UP x3, CALL LIGHT WITHIN EASY REACH, BED LOCKED AND IN LOWEST POSITION , CONTINUE TO MONITOR .
--- NOTE | 2018-07-19 07:09 | NUR ---
RN NOTES PATIENT REMAINED SEDATED WITH DIPRIVAN EPISODE OF AGITATION NOTED DURING BED BATH. ETT AND VENT SETTING TOLERATED WELL NO ACUTE RESPIRATORY DISTRESS. FREQUENT SUCTIONING PROVIDED ORALLY AND ETT. SINUS FIORELLA ON TELE MONITOR LOWEST HR 47, HOB KEPT ELEVATED. VSS STABLE. NO SIGNIFICANT CHANGE OF CONDITION. F/C DRAINED WELL. IV SITE INTACT AND PATENT. KEPT PT CLEAN AND DRY. ENDORSED CONTINUITY OF CARE TO AM NURSE.
[2018-07-19] MEDS: POTASSIUM CHLORIDE 20 MEQ POWDER PACKET GT SCH ×3 (08:04→11:09)
[2018-07-19] MEDS: LEVOTHYROXINE SODIUM 50 MCG TABLET GT SCH (08:04)
[2018-07-19] MEDS: ASCORBIC ACID 500 MG TABLET GT SCH ×2 (08:05→16:22)
[2018-07-19] MEDS: LACTOBACILLUS RHAMNOSUS GG 1 EACH CAP.SPRINK GT SCH ×2 (08:05→16:22)
[2018-07-19] MEDS: FERROUS SULFATE UDC 300 MG/5 ML UDC GT SCH (08:05)
[2018-07-19] MEDS: HYDROCODONE/APAP 5/325MG 1 EACH TABLET GT SCH (08:05)
[2018-07-19] MEDS: risperiDONE 0.25 MG TABLET PO SCH ×2 (08:06→20:19)
[2018-07-19] MEDS: AMLODIPINE BESYLATE 5 MG TABLET GT SCH (08:06)
[2018-07-19] MEDS: MULTIVIT W/MINERALS 1 TAB TABLET GT SCH (08:06)
[2018-07-19] MEDS: FAMOTIDINE (20 MG) 20 MG TABLET GT SCH (08:06)
[2018-07-19] MEDS: ENOXAPARIN SODIUM 30 MG/0.3 ML DISP.SYRIN SQ SCH (08:06)
[2018-07-19] MEDS: ASPIRIN 81 MG TAB.CHEW GT SCH (08:06)
[2018-07-19] MEDS: PANTOPRAZOLE 40 MG TABLET.DR PO SCH (08:06)
[2018-07-19] MEDS: MUPIROCIN OINT 2% 22 GM TUBE SCH ×3 (08:07→20:19)
[2018-07-19] MEDS: CEFEPIME 2 GM in IV D5W 100 ML IV SCH ×2 (08:07→20:18)
[2018-07-19] MEDS: RIVASTIGMINE TARTRATE 1.5 MG CAPSULE GT SCH ×2 (08:17→20:29)
--- NOTE | 2018-07-19 09:08 | NUR ---
PT RECEIVED ORALLY INTUBATED ON MECHANICAL VENT W/ NOTED SETTINGS PER MD ORDER. VENT ALARMS CHECKED, VENT IN RED OUTLET, AMBUBAG AT BEDSIDE. PT SX'ED AND LAVAGED PRN. ETT CLEAN, PATENT, SECURED W/ ANCHOFAST. PLAN IS TO CONTINUE CARE UNDER CURRENT MD ORDERS AND MONITOR FOR CHANGES. Addendum: 07/19/18 at 0909 by TIAGO MORA RT Amended: Links added.
[2018-07-19] MEDS: PROSOURCE / PROSTAT (PYXIS) 30 ML UDC GT SCH (09:13)
[2018-07-19] MEDS: VANCOMYCIN 500 MG in IV D5W 100 ML IV SCH ×2 (11:14→23:29)
--- NOTE | 2018-07-19 12:00 | NUR ---
RN NOTES PT TOLERATING TF WELL, ORAL AND ET SUCTIONING DONE NEEDED , VSS STABLE , CONTINUE TO MONITOR .
--- NOTE | 2018-07-19 18:23 | NUR ---
RN NOTES PATIENT DIPRIVAN ,RESTLESS AND AGITATED AT TIMES , DR DELEON NOTIFED, ATIVAN IV PRN ORDERED , TOLERATING VENT SETTING WELL, RT NOTIFED REGARDING VENT SETTING CHANGE TO SIMV MODE IN AM, NS A 100CC/HR RUNNING VIA R UPPER ARM MIDLINE, NO SIGNIFICANT CHANGE OF CONDITION. KEPT PT CLEAN AND DRY. WILL ENDORSE TO PM NURSE FOR CONTINUITY OF CARE.
--- NOTE | 2018-07-19 19:15 | NUR ---
RN NOTES, RECEIVED PATIENT SEDATED ON DIPRIVAN ORDERED, NO AGITATION NOTED AT THIS TIME IN BED ORALLY INTUBATED ON MECHANICAL VENT WITH SETTINGS PER MD ORDER, TOLERATED SETTING WELL, ALL ALARMS ON, AMBU BAG AT BEDSIDE, ETT CLEAN, PATENT, SECURED W/ ANCHOFAST, ON BILATERAL SOFT WRIST RESTRAINS, PLAN IS TO CONTINUE CARE UNDER CURRENT MD ORDERS AND MONITOR CLOSELY, FOR CHANGES.
[2018-07-19] MEDS: LORAZEPAM INJ 2 MG/ML VIAL IV PRN (20:47)
--- NOTE | 2018-07-19 20:47 | NUR ---
RN NOTES, NOTED PATIENT WITH EPISODES OF RESTLESSNESS AND AGITATION, ATIVAN ADMINISTERED ORDERED, WILL CONTINUE TO MONITOR CLOSELY.
[2018-07-19] MEDS: SENNOSIDES 8.6 MG TABLET GT SCH (21:03)
[2018-07-19] MEDS: JEVITY 1.2 CAL 1,000 ML BOTTLE GT PRN (21:51)
[2018-07-20] VITALS (38 sets, daily range): BP systolic 108–149; BP diastolic 37–61
--- NOTE | 2018-07-20 | NUR ---
RN NOTES, NOTED PATIENT WITH CONSISTENT HR IN THE 40S, DIPRIVAN DECREASED FROM 20MCG/HR TO 15MCG/HR, WILL CONTINUE TO MONITOR CLOSELY.
[2018-07-20] MEDS: PROPOFOL 100 ML IV PRN ×2 (02:43→13:28)
[2018-07-20] MEDS: IV NS 0.9% 1,000 ML IV PRN ×3 (03:25→23:13)
[2018-07-20 05:10] LABS: BASOPHILS # (AUTO) 0.1 /CMM (0.0-0.2); EOSINOPHILS % (AUTO) 3.4 % (0.0-6.0); HEMATOCRIT 26 % (33-45); HEMOGLOBIN 8.5 g/dL (11.5-14.8); LYMPHOCYTES # (AUTO) 0.6 /CMM (0.8-4.8); LYMPHOCYTES % (AUTO) 9.5 % (20.0-44.0); MEAN CORPUSCULAR HGB CONC 33 g/dl (31.0-36.0); MEAN CORPUSCULAR VOLUME 80 fL (82-100); MONOCYTES # (AUTO) 0.7 /CMM (0.1-1.30); MONOCYTES % (AUTO) 12.3 % (2.0-12.0); NEUTROPHILS # (AUTO) 4.4 /CMM (1.8-8.9); NEUTROPHILS % (AUTO) 73.8 % (43.0-81.0); PLATELET COUNT (AUTO) 276 /CMM (150-450); RED BLOOD CELL COUNT(AUTO) 3.21 MIL/uL (4.0-5.2); WHITE BLOOD COUNT (AUTO) 5.9 K/uL (4.3-11.0)
[2018-07-20 05:21] LABS: CALCIUM, SERUM 7.9 mg/dL (8.5-10.1); CARBON DIOXIDE 22 mmol/L (21-32); CHLORIDE 111 mmol/L (98-107); CREATININE 0.8 mg/dL (0.6-1.3); GLUCOSE 137 mg/dL (74-106); POTASSIUM 4.1 mmol/L (3.5-5.1); SODIUM SERUM 142 mmol/L (136-145); UREA NITROGEN, BLOOD 26 mg/dL (7-18)
--- NOTE | 2018-07-20 06:48 | NUR ---
RN NOTES, PATIENT SEDATED CONTINUE ON DIPRIVAN ORDERED, NO AGITATION NOTED AT THIS TIME IN BED ORALLY INTUBATED ON MECHANICAL VENT WITH SETTINGS PER MD ORDER, TOLERATED SETTING WELL, ALL ALARMS ON, AMBU BAG AT BEDSIDE, BILATERAL SOFT WRIST RESTRAINS, WEANING TRIAL PLAN FOR THIS MORNING, NO SIGNIFICANT CHANGE IN CONDITION DURING THE NIGHT, WILL ENDORSE TO ONCOMING NURSE FOR CONTINUITY OF CARE.
--- NOTE | 2018-07-20 07:30 | NUR ---
RN NOTE RECEIVED PT ON [facility] VENT, ETT 7.5, 23, AC MODE 16 TV 450 ML, FIO2 40% PEEP 5. NO SOB NOTED, O2 SATURATION 100%, PT SEDATED, RESPONSE TO PAIN, ON DIPRIVAN DRIP RUNNING AT 15 MCG, IV FLUIDS RUNNING, GTUBE FEEDING RUNNING. LANG IN PLACE DRAINING CLEAR YELLOW URINE. ON TELEMETRY SB/JUNCTIONAL 58 BPM. JOSE SOFT WRIST RESTRAINTS ARE ON, HAND CIRCULATION WNL. SAFETY MEASURES IN PLACE WILL MONITOR.
[2018-07-20] MEDS: CEFEPIME 2 GM in IV D5W 100 ML IV SCH (08:55)
[2018-07-20] MEDS: FERROUS SULFATE UDC 300 MG/5 ML UDC GT SCH (08:55)
[2018-07-20] MEDS: risperiDONE 0.25 MG TABLET PO SCH ×2 (08:56→21:00)
[2018-07-20] MEDS: ASPIRIN 81 MG TAB.CHEW GT SCH (08:56)
[2018-07-20] MEDS: PROSOURCE / PROSTAT (PYXIS) 30 ML UDC GT SCH (08:56)
[2018-07-20] MEDS: LACTOBACILLUS RHAMNOSUS GG 1 EACH CAP.SPRINK GT SCH ×2 (08:56→16:24)
[2018-07-20] MEDS: FAMOTIDINE (20 MG) 20 MG TABLET GT SCH (08:56)
[2018-07-20] MEDS: MULTIVIT W/MINERALS 1 TAB TABLET GT SCH (08:56)
[2018-07-20] MEDS: ASCORBIC ACID 500 MG TABLET GT SCH ×2 (08:56→16:24)
[2018-07-20] MEDS: AMLODIPINE BESYLATE 5 MG TABLET GT SCH (08:57)
[2018-07-20] MEDS: LEVOTHYROXINE SODIUM 50 MCG TABLET GT SCH (08:58)
[2018-07-20] MEDS: HYDROCODONE/APAP 5/325MG 1 EACH TABLET GT SCH (08:58)
[2018-07-20] MEDS: RIVASTIGMINE TARTRATE 1.5 MG CAPSULE GT SCH ×2 (08:58→21:01)
[2018-07-20] MEDS: PANTOPRAZOLE 40 MG TABLET.DR PO SCH (08:58)
[2018-07-20] MEDS: ENOXAPARIN SODIUM 30 MG/0.3 ML DISP.SYRIN SQ SCH (09:00)
[2018-07-20] MEDS: MUPIROCIN OINT 2% 22 GM TUBE SCH ×2 (09:01→21:03)
--- NOTE | 2018-07-20 09:18 | NUR ---
RT PER MD ORDER PATIENT PLACED ON SIMV MODE. ALARMS CHECKED + AUDIBLE. ОЛЬГАU BAG AT HOB Addendum: 07/20/18 at 0919 by SONIA DE LA FUENTE RT Amended: Links added.
[2018-07-20 10:14] LABS: ABG BASE EXCESS -4.1 mmol/L; ABG OXYGEN SATURATION 97.9 % (92.0-98.5); ABG PCO2 34.1 mmHg (35.0-45.0); ABG PH 7.391 (7.350-7.450); ABG PO2 131.6 mmHg (75.0-100.0); AaDO2 114.4 mmHg; COHb 0.3 % (0.5-1.5); MetHb 0.7 % (0.0-1.5); O2Hb 96.9 % (94.0-97.0); SITE, ABG Left Radial; VENT MODE, BG SIMV 4 450 PS15 +5 40%
--- NOTE | 2018-07-20 10:32 | NUR ---
RN NOTE REPORT GIVEN TO AGUSTINA FOR ARNOL. PT STABLE.
--- NOTE | 2018-07-20 11:15 | NUR ---
PATIENT WAS PLACED BACK ON AC MODE DUE TO SOB. RN AWARE Addendum: 07/20/18 at 1116 by SONIA DE LA FUENTE RT Amended: Links added.
--- NOTE | 2018-07-20 11:35 | NUR ---
RN INITIAL NOTES 1030 RECEIVED PT FROM BRADLEY DE LA PAZ. PT INTUBATED, ON SIMV MODE. NO RESPIRATORY DISTRESS NOTED. NO SOB NOTED HOB ELEVATED. PT OFF SEDATION. MACY MIDLINE IN PLACE. IVF INFUSING. GT IN PLACE. TOLERATING GTF WELL. NO RESIDUAL NOTED. FC IN PLACE. BLE ELEVATED. WILL MONITOR. 1130 PT NOTED WITH RESPIRATORY DISTRESS. PLACED BACK ON AC MODE. KEPT HOB ELEVATED. DIPRIVAN RESTARTED. WILL CLOSELY MONITOR.
[2018-07-20] MEDS: CEFTRIAXONE 1 G in IV D5W 50 ML IV SCH (12:19)
[2018-07-20] MEDS: JEVITY 1.2 CAL 1,000 ML BOTTLE GT PRN (16:24)
--- NOTE | 2018-07-20 18:44 | NUR ---
RN CLOSING NOTES PT REMAINS INTUBATED. TOLERATING VENT WELL. NO RESPIRATORY DISTRESS NOTED. NO SIGNS OF PAIN NOTED. MIDLINE IN PLACE, IVF INFUSING. REMAINS ON DIPRIVAN AT 20MCG/KG/MIN, TITRATED ACCORDINGLY. GT IN PLACE, TOLERATING GTF. FC IN PLACE. KEPT CLEAN AND DRY. REPOSITIONED Q2. BLE ELEVATED. KEPT COMFORTABLE. WILL ENDORSE FOR CONTINUITY OF CARE.
--- NOTE | 2018-07-20 19:55 | NUR ---
PT RECEIVED ORALLY INTUBATED WITH 7.0 ETT SECURED@ 23CM ON MECHANICAL VENT W/ NOTED SETTINGS PER MD ORDER. VENT ALARMS CHECKED, VENT PLUGGED INTO RED OUTLET, AMBU BAG AT BEDSIDE. PT SUCTIONED MODERATE AMOUNT OF PALE YELLOW SECRETIONS. ETT PATENT AND SECURED. NO RESPIRATORY DISTRESS NOTED AT THIS TIME . WILL CONTINUE TO MONITOR THE PT.
[2018-07-20] MEDS: DOXYCYCLINE HYCLATE (100 MG) 100 MG TABLET PO SCH (21:01)
[2018-07-20] MEDS: SENNOSIDES 8.6 MG TABLET GT SCH (21:03)
[2018-07-21] VITALS (36 sets, daily range): BP systolic 105–167; BP diastolic 33–93
[2018-07-21] MEDS: PROPOFOL 100 ML IV PRN (01:39)
[2018-07-21 05:03] LABS: BASOPHILS % (AUTO) 0.6 % (0.0-2.0); EOSINOPHILS % (AUTO) 1.6 % (0.0-6.0); HEMATOCRIT 29 % (33-45); HEMOGLOBIN 9.7 g/dL (11.5-14.8); LYMPHOCYTES # (AUTO) 0.8 /CMM (0.8-4.8); LYMPHOCYTES % (AUTO) 11.4 % (20.0-44.0); MEAN CORPUSCULAR HGB CONC 33 g/dl (31.0-36.0); MEAN CORPUSCULAR VOLUME 80 fL (82-100); MONOCYTES # (AUTO) 0.7 /CMM (0.1-1.30); NEUTROPHILS # (AUTO) 5.6 /CMM (1.8-8.9); NEUTROPHILS % (AUTO) 76.4 % (43.0-81.0); PLATELET COUNT (AUTO) 320 /CMM (150-450); RED BLOOD CELL COUNT(AUTO) 3.68 MIL/uL (4.0-5.2); WHITE BLOOD COUNT (AUTO) 7.3 K/uL (4.3-11.0)
[2018-07-21 05:16] LABS: CALCIUM, SERUM 8.2 mg/dL (8.5-10.1); CARBON DIOXIDE 21 mmol/L (21-32); CHLORIDE 109 mmol/L (98-107); CREATININE 0.8 mg/dL (0.6-1.3); GLUCOSE 150 mg/dL (74-106); POTASSIUM 4.5 mmol/L (3.5-5.1); SODIUM SERUM 141 mmol/L (136-145); UREA NITROGEN, BLOOD 27 mg/dL (7-18)
--- NOTE | 2018-07-21 07:30 | NUR ---
RECEIVED PATIENT INTUBATED 7.0 WITH VENT SETTINGS PER ORDER AND TOLERATING WELL. NO SOB, DIFFICULTY BREATHING NOTED. SEDATED ON DIPRIVAN 20MCG AND PATIENT MOVES TO LOCALIZED PAIN. PER DR PACE PLEASE TRY TO TITRATE OFF THIS IS CONVERTING PATIENT TO JUNCTIONAL RHYTHMS. PER RN PATIENT BECOMES AGGRESSIVE AND UNABLE TO REMAIN CALM OFF DIPRIVAN; WILL MONITOR. PER REPORT PATIENT FAILED WEANING TRIAL YESTERDAY AND SCHEDULED FOR WEANING AGAIN WITH DR DELEON TODAY. LANG CATH TO GRAVITY PATENT AND INTACT. MACY MIDLINE C/D/I/P WITH IVF PER MD ORDER. RIGHT FA IV SITE APPEARS INFILTRATED AND SWOLLEN. REMOVED WITH CATH TIP INTACT AND PRESSURE APPLIED NO BLEEDING NOTED. EXTREMITY ELEVATED. G TUBE WITH FEEDING PER ORDER 10ML RESIDUAL NOTED AND TOLERATING WELL. BILATERAL WRIST RESTRAINTS IN PLACE PATIENT HAS FREQUENT HX OF PULLING AT TUBES AND LINES. SAFETY, SKIN, ASPIRATION, AND ISOLATION PRECAUTIONS IN PLACE AND WILL MONITOR.
[2018-07-21] MEDS: LACTOBACILLUS RHAMNOSUS GG 1 EACH CAP.SPRINK GT SCH ×2 (08:16→16:22)
[2018-07-21] MEDS: LEVOTHYROXINE SODIUM 50 MCG TABLET GT SCH (08:16)
[2018-07-21] MEDS: MULTIVIT W/MINERALS 1 TAB TABLET GT SCH (08:16)
[2018-07-21] MEDS: HYDROCODONE/APAP 5/325MG 1 EACH TABLET GT SCH (08:17)
[2018-07-21] MEDS: FAMOTIDINE (20 MG) 20 MG TABLET GT SCH (08:19)
[2018-07-21] MEDS: PANTOPRAZOLE 40 MG TABLET.DR PO SCH (08:19)
[2018-07-21] MEDS: ASCORBIC ACID 500 MG TABLET GT SCH ×2 (08:19→16:22)
[2018-07-21] MEDS: ASPIRIN 81 MG TAB.CHEW GT SCH (08:19)
[2018-07-21] MEDS: FERROUS SULFATE UDC 300 MG/5 ML UDC GT SCH (08:20)
[2018-07-21] MEDS: PROSOURCE / PROSTAT (PYXIS) 30 ML UDC GT SCH (08:20)
[2018-07-21] MEDS: AMLODIPINE BESYLATE 5 MG TABLET GT SCH (08:20)
[2018-07-21] MEDS: risperiDONE 0.25 MG TABLET PO SCH ×2 (08:20→21:02)
[2018-07-21] MEDS: Z GUARD REMEDY 2 OZ OINT TP PRN ×2 (08:20→11:44)
[2018-07-21] MEDS: DOXYCYCLINE HYCLATE (100 MG) 100 MG TABLET PO SCH ×2 (08:20→21:02)
[2018-07-21] MEDS: MUPIROCIN OINT 2% 22 GM TUBE SCH ×2 (08:22→21:04)
[2018-07-21] MEDS: ENOXAPARIN SODIUM 30 MG/0.3 ML DISP.SYRIN SQ SCH (08:22)
[2018-07-21 09:05] LABS: ABG BASE EXCESS -3.6 mmol/L; ABG OXYGEN SATURATION 96.5 % (92.0-98.5); ABG PCO2 35.9 mmHg (35.0-45.0); ABG PH 7.385 (7.350-7.450); ABG PO2 99.1 mmHg (75.0-100.0); AaDO2 144.8 mmHg; COHb 0.3 % (0.5-1.5); MetHb 1.3 % (0.0-1.5); PEEP,BG 5 cm H2O; SITE, ABG Right Radial; VT, ABG 450 mL
[2018-07-21] MEDS: RIVASTIGMINE TARTRATE 1.5 MG CAPSULE GT SCH ×2 (09:29→21:02)
[2018-07-21] MEDS: LORAZEPAM INJ 2 MG/ML VIAL IV PRN ×2 (09:30→16:27)
--- NOTE | 2018-07-21 09:30 | NUR ---
PATIENT NOTED TO BE RESTLESS AND FLAILING LEGS. WILL GIVE ATIVAN IVP PER MD ORDER.
[2018-07-21] MEDS: IV NS 0.9% 1,000 ML IV PRN (09:31)
--- NOTE | 2018-07-21 11:21 | NUR ---
PATIENT CONTINUES TO TURN HEAD TO THE RIGHT. ASSISTING WIT DTI PREVENTIONS FOR THE EAR WITH MEPILEX AND ASSISTING OFFLOADING WITH PILLOWS. WILL MONITOR
[2018-07-21] MEDS: CEFTRIAXONE 1 G in IV D5W 50 ML IV SCH (11:44)
--- NOTE | 2018-07-21 13:02 | NUR ---
vent changes below made per dr. catsrejon for weaning trial: simv4 ps 12 fio2 40% peep 5 Addendum: 07/21/18 at 1303 by IRA TORRES RT Amended: Links added.
--- NOTE | 2018-07-21 13:20 | NUR ---
notified dr castrejon patient not awake. she is moving to localized pain however no opening eyes and sleeping. per md monitor and please try simv once patient wakes up more. rt at bedside
--- NOTE | 2018-07-21 13:29 | NUR ---
shift back to ac mode because pt. is not waking up. charge nurse and rn notified. Addendum: 07/21/18 at 1330 by IRA TORRES RT Amended: Links added.
--- NOTE | 2018-07-21 16:20 | NUR ---
patient appears agitated and more awake. still not following commands nor calming to direction. prn ativan to be given and will monitor
--- NOTE | 2018-07-21 17:00 | NUR ---
patient calm s/p ativan. will hold off on diprivan at this time. will continue to monitor
[2018-07-21] MEDS: JEVITY 1.2 CAL 1,000 ML BOTTLE GT PRN (17:31)
--- NOTE | 2018-07-21 18:19 | NUR ---
ALL DUE MEDS GIVEN AND ALL NEEDS MET. PATIENT TOLERATING VENT SETTINGS. CALM AND COOPERATIVE WITH PRN ATIVAN. NO NEED TO START DIPRIVAN AT THIS TIME. IV SITES C/D/I/P. LANG TO GRAVITY C/D/I/P. SAFETY, SKIN, ASPIRATION, ISOLATION PRECAUTIONS IN PLACE.
--- NOTE | 2018-07-21 19:30 | NUR ---
SLATE SPLITTING SUPERVISOR: RECEIVED ORALLY INTUBATED PT WT SETTINGS ORDERED. NO ACUTE DISTRESS. STILL OFF DIPRIVAN, WITHDRAWS TO TOUCH/PAIN STIMULI. SINUS WT IN AND OUT JUNCTIONAL RHYTHM ON ADVERTISING SPECIALIST WT HR IN THE 60s. AFEBRILE. GT IN PLACE RUNNING JEVITY 1.2 AT 50ML/HR WT 30CC RESIDUAL. MACY MIDLINE TKO AND LT. AC IV SALINE LOCKED WT NO S/S OF INFILTRATIONS. F/C PATENT AND INTACT DRAINING YELLOW URINE TO GRAVITY. BILAT. SOFT WRIST RESTRAINTS IN PLACE TO PREVENT SELF EXTUBATION. SKIN AND CIRCULATION WNL. HOB AT 45 DEGREES. BED LOCKED WT SR UP X 2. WILL CONTINUE TO MONITOR FOR ANY ADVERSE CHANGE OF CONDITION.
[2018-07-21] MEDS: SENNOSIDES 8.6 MG TABLET GT SCH (21:08)
--- NOTE | 2018-07-21 21:48 | NUR ---
PT RECEIVED ORALLY INTUBATED WITH 7.0 ETT SECURED@ 23CM ON MECHANICAL VENT W/ NOTED SETTINGS PER MD ORDER. PT IS OBTUNDED. VENT ALARMS CHECKED, VENT PLUGGED INTO RED OUTLET, AMBU BAG AT BEDSIDE. PT SUCTIONED MODERATE AMOUNT OF PALE YELLOW SECRETIONS. ETT PATENT AND SECURED. NO RESPIRATORY DISTRESS NOTED AT THIS TIME . WILL CONTINUE TO MONITOR THE PT.
[2018-07-22] VITALS (35 sets, daily range): BP systolic 109–158; BP diastolic 39–63
[2018-07-22 04:11] LABS: BASOPHILS # (AUTO) 0.1 /CMM (0.0-0.2); BASOPHILS % (AUTO) 0.8 % (0.0-2.0); EOSINOPHILS % (AUTO) 3.3 % (0.0-6.0); HEMATOCRIT 26 % (33-45); HEMOGLOBIN 8.6 g/dL (11.5-14.8); LYMPHOCYTES # (AUTO) 0.8 /CMM (0.8-4.8); LYMPHOCYTES % (AUTO) 12.1 % (20.0-44.0); MEAN CORPUSCULAR HGB CONC 33 g/dl (31.0-36.0); MEAN CORPUSCULAR VOLUME 80 fL (82-100); MONOCYTES # (AUTO) 0.5 /CMM (0.1-1.30); MONOCYTES % (AUTO) 8.5 % (2.0-12.0); NEUTROPHILS # (AUTO) 4.7 /CMM (1.8-8.9); NEUTROPHILS % (AUTO) 75.3 % (43.0-81.0); PLATELET COUNT (AUTO) 281 /CMM (150-450); RED BLOOD CELL COUNT(AUTO) 3.23 MIL/uL (4.0-5.2); WHITE BLOOD COUNT (AUTO) 6.2 K/uL (4.3-11.0)
[2018-07-22 04:17] LABS: CARBON DIOXIDE 27 mmol/L (21-32); CHLORIDE 108 mmol/L (98-107); CREATININE 0.7 mg/dL (0.6-1.3); GLUCOSE 125 mg/dL (74-106); SODIUM SERUM 141 mmol/L (136-145); UREA NITROGEN, BLOOD 25 mg/dL (7-18)
--- NOTE | 2018-07-22 06:30 | NUR ---
SPOOLER OPERATOR: REMAINS OBTUNDED AND STILL OFF DIPRIVAN. MOSTLY SINUS RHYTHM WT EPISODES OF JUNCTIONAL AND HR BET. 50s TO 70s. NOTED WT COPIOUS AMT. OF THIN WHITE FROTHY ORAL SECRETIONS. SUCTIONED WT GOOD ORAL CARE AND TOLERATED FAIRLY. NO OTHER SIGNIFICANT ARNOL. ALL NEEDS MET.
[2018-07-22] MEDS: LEVOTHYROXINE SODIUM 50 MCG TABLET GT SCH (07:32)
[2018-07-22] MEDS: PANTOPRAZOLE 40 MG TABLET.DR PO SCH (07:32)
--- NOTE | 2018-07-22 07:42 | NUR ---
RT Pt received orally intubated with with a 7.0 ETT secured at 23cm at the lip line. Pt is awake but does not follow commands. Vent alarms are set and audible with BVM by bedside. RESPIRATORY THERAPY ASSISTANT cuff pressure noted. Vent is plugged into red outlet. No respiratory distress noted at this time. Addendum: 07/22/18 at 1832 by SHAGUFTA ORTEGA RT Amended: Links added.
[2018-07-22 08:12] LABS: ABG BASE EXCESS 0.8 mmol/L; ABG OXYGEN SATURATION 98.1 % (92.0-98.5); ABG PCO2 38.3 mmHg (35.0-45.0); ABG PH 7.433 (7.350-7.450); AaDO2 112.2 mmHg; COHb 0.3 % (0.5-1.5); MetHb 0.7 % (0.0-1.5); O2Hb 97.1 % (94.0-97.0); PEEP,BG 5 cm H2O; SITE, ABG Right Radial; VENT MODE, BG AC 16 450 40% +5; VT, ABG 450 mL
[2018-07-22] MEDS: FERROUS SULFATE UDC 300 MG/5 ML UDC GT SCH (08:16)
[2018-07-22] MEDS: HYDROCODONE/APAP 5/325MG 1 EACH TABLET GT SCH (08:16)
[2018-07-22] MEDS: LACTOBACILLUS RHAMNOSUS GG 1 EACH CAP.SPRINK GT SCH ×2 (08:16→16:37)
[2018-07-22] MEDS: DOXYCYCLINE HYCLATE (100 MG) 100 MG TABLET PO SCH ×2 (08:16→21:32)
[2018-07-22] MEDS: MULTIVIT W/MINERALS 1 TAB TABLET GT SCH (08:16)
[2018-07-22] MEDS: AMLODIPINE BESYLATE 5 MG TABLET GT SCH (08:17)
[2018-07-22] MEDS: FAMOTIDINE (20 MG) 20 MG TABLET GT SCH (08:17)
[2018-07-22] MEDS: ASCORBIC ACID 500 MG TABLET GT SCH ×2 (08:17→16:37)
[2018-07-22] MEDS: MUPIROCIN OINT 2% 22 GM TUBE SCH ×2 (08:18→21:47)
[2018-07-22] MEDS: ENOXAPARIN SODIUM 30 MG/0.3 ML DISP.SYRIN SQ SCH (08:18)
[2018-07-22] MEDS: ASPIRIN 81 MG TAB.CHEW GT SCH (08:18)
[2018-07-22] MEDS: RIVASTIGMINE TARTRATE 1.5 MG CAPSULE GT SCH ×2 (08:20→21:32)
[2018-07-22] MEDS: risperiDONE 0.25 MG TABLET PO SCH (08:20)
[2018-07-22] MEDS: PROSOURCE / PROSTAT (PYXIS) 30 ML UDC GT SCH (08:22)
--- NOTE | 2018-07-22 09:08 | NUR ---
received pt from baggage and mail agent, lethargic/obtunded, SR, on the vent, lungs congested, GT to feeding some residual, f/c good output, restraints on, v/s stable, no pain, pt turned and repositioned.
[2018-07-22] MEDS: LORAZEPAM INJ 2 MG/ML VIAL IV PRN (10:51)
[2018-07-22] MEDS: CEFTRIAXONE 1 G in IV D5W 50 ML IV SCH (11:36)
--- NOTE | 2018-07-22 16:15 | NUR ---
pt is resting in the bed, lethargic, SR, tolerates feeding, OK urine output, restraints on, v/s stable, no pain, pt cleaned, changed and repositioned q2hrs.
--- NOTE | 2018-07-22 19:30 | NUR ---
LINUX SYSTEM ENGINEER: PT REMAINS ORALLY INTUBATED AND TOLERATING VENT SETTINGS ORDERED. OBTUNDED, WITHDRAWS TO TOUCH AND PAIN STIMULI. SR ON FELT CHECKER. GTF TOLERATING WELL. GOOD URINE OUTPUT. IV SITES INTACT WT NO S/S OF INFILTRATIONS. BILAT. RESTRAINTS IN PLACE WT SKIN AND CIRCULATION WNL. HOB AT 35 DEGREES. ASPIRATION/SAFETY PRECAUTIONS NOTED.
--- NOTE | 2018-07-22 19:47 | NUR ---
PT RECEIVED ORALLY INTUBATED WITH 7.0 ETT SECURED@ 23CM ON MECHANICAL VENT W/ NOTED SETTINGS PER MD ORDER. PT IS OBTUNDED. VENT ALARMS CHECKED, VENT PLUGGED INTO RED OUTLET, AMBU BAG AT BEDSIDE. PT SUCTIONED MODERATE AMOUNT OF PALE YELLOW SECRETIONS. ETT PATENT AND SECURED. SEAT INSTALLER CUFF PRESSURE NOTED. NO RESPIRATORY DISTRESS NOTED AT THIS TIME . WILL CONTINUE TO MONITOR THE PT.
[2018-07-22] MEDS: JEVITY 1.2 CAL 1,000 ML BOTTLE GT PRN (21:32)
[2018-07-22] MEDS: SENNOSIDES 8.6 MG TABLET GT SCH (21:32)
[2018-07-23] VITALS (34 sets, daily range): BP systolic 124–175; BP diastolic 45–78
[2018-07-23 05:54] LABS: CALCIUM, SERUM 8.5 mg/dL (8.5-10.1); CARBON DIOXIDE 27 mmol/L (21-32); CHLORIDE 102 mmol/L (98-107); CREATININE 0.7 mg/dL (0.6-1.3); GLUCOSE 113 mg/dL (74-106); SODIUM SERUM 136 mmol/L (136-145); UREA NITROGEN, BLOOD 22 mg/dL (7-18)
[2018-07-23 05:57] LABS: BASOPHILS # (AUTO) 0.1 /CMM (0.0-0.2); BASOPHILS % (AUTO) 0.9 % (0.0-2.0); EOSINOPHILS % (AUTO) 1.9 % (0.0-6.0); HEMATOCRIT 29 % (33-45); HEMOGLOBIN 9.5 g/dL (11.5-14.8); LYMPHOCYTES # (AUTO) 0.8 /CMM (0.8-4.8); LYMPHOCYTES % (AUTO) 9.2 % (20.0-44.0); MEAN CORPUSCULAR HGB CONC 33 g/dl (31.0-36.0); MEAN CORPUSCULAR VOLUME 79 fL (82-100); MONOCYTES # (AUTO) 0.7 /CMM (0.1-1.30); PLATELET COUNT (AUTO) 342 /CMM (150-450); RED BLOOD CELL COUNT(AUTO) 3.62 MIL/uL (4.0-5.2); WHITE BLOOD COUNT (AUTO) 8.7 K/uL (4.3-11.0)
--- NOTE | 2018-07-23 06:40 | NUR ---
HANG GLIDING INSTRUCTOR: REMAINS OBTUNDED, UNABLE TO FOLLOW COMMANDS. BILAT. SOFT WRIST RESTRAINTS IN PLACE FOR EPISODES OF TRYING TO PULL TUBINGS WT PALPABLE PULSES AND NO NEW SKIN BREAKDOWN. GTF TOLERATED WELL. SR ON SPLIT LEATHER DEPARTMENT SUPERVISOR. ALL NEEDS MET. SAFETY/ASPIRATION PRECAUTIONS NOTED AT ALL TIMES.
[2018-07-23] MEDS: LEVOTHYROXINE SODIUM 50 MCG TABLET GT SCH (07:44)
[2018-07-23] MEDS: PANTOPRAZOLE 40 MG TABLET.DR PO SCH (07:44)
[2018-07-23] MEDS: FAMOTIDINE (20 MG) 20 MG TABLET GT SCH (08:06)
[2018-07-23] MEDS: MULTIVIT W/MINERALS 1 TAB TABLET GT SCH (08:06)
[2018-07-23] MEDS: LACTOBACILLUS RHAMNOSUS GG 1 EACH CAP.SPRINK GT SCH ×2 (08:06→17:15)
[2018-07-23] MEDS: AMLODIPINE BESYLATE 5 MG TABLET GT SCH ×2 (08:06→17:15)
[2018-07-23] MEDS: DOXYCYCLINE HYCLATE (100 MG) 100 MG TABLET PO SCH ×2 (08:07→20:04)
[2018-07-23] MEDS: FERROUS SULFATE UDC 300 MG/5 ML UDC GT SCH (08:07)
[2018-07-23] MEDS: ASCORBIC ACID 500 MG TABLET GT SCH ×2 (08:07→17:15)
[2018-07-23] MEDS: ASPIRIN 81 MG TAB.CHEW GT SCH (08:07)
[2018-07-23] MEDS: ENOXAPARIN SODIUM 30 MG/0.3 ML DISP.SYRIN SQ SCH (08:08)
[2018-07-23] MEDS: RIVASTIGMINE TARTRATE 1.5 MG CAPSULE GT SCH ×2 (08:09→20:04)
[2018-07-23] MEDS: MUPIROCIN OINT 2% 22 GM TUBE SCH ×2 (08:09→20:08)
[2018-07-23] MEDS: PROSOURCE / PROSTAT (PYXIS) 30 ML UDC GT SCH (08:10)
--- NOTE | 2018-07-23 08:10 | NUR ---
RT PATIENT REC'D ORALLY INTUBATED ON [facility] VENT WITH ORDERED SETTINGS. VENT ALARMS CHECKED + AUDIBLE. PATIENT IN CRITICAL CONDITION. AMBU BAG AT HOB Addendum: 07/23/18 at 1634 by SONIA DE LA FUENTE RT Amended: Links added.
--- NOTE | 2018-07-23 08:47 | NUR ---
received pt from night monitor, lethargic/obtunded, SR, on the vent, lungs congested, GT to feeding, f/c good urine output, restraints on, v/s stable, no pain, pt turned and repositioned.
[2018-07-23 09:02] LABS: ABG BASE EXCESS 4.2 mmol/L; ABG OXYGEN SATURATION 98.1 % (92.0-98.5); ABG PCO2 41.6 mmHg (35.0-45.0); ABG PH 7.454 (7.350-7.450); ABG PO2 132.4 mmHg (75.0-100.0); COHb 0.3 % (0.5-1.5); MetHb 0.8 % (0.0-1.5); SITE, ABG Right Radial
[2018-07-23] MEDS: CEFTRIAXONE 1 G in IV D5W 50 ML IV SCH (11:13)
[2018-07-23] MEDS: LORAZEPAM INJ 2 MG/ML VIAL IV PRN ×2 (13:30→21:41)
--- NOTE | 2018-07-23 16:23 | NUR ---
pt is resting in the bed, lethargic, SR, tolerates feeding, good urine output, v/s stable, no pain, pt cleaned, changed and repositioned q2hrs.
[2018-07-23] MEDS: HYDROCODONE/APAP 5/325MG 1 EACH TABLET GT PRN (20:04)
--- NOTE | 2018-07-23 20:24 | NUR ---
RECEIVED PT INTUBATED 7.0 ETT SECURED AT 23CM AT THE LIP. TOLERATING VENT SETTINGS. SX'D FOR SML AMT OF THIN WHITE SECRETIONS. VENT ALARMS SET AND AUDIBLE. AMBU BAG AT BEDSIDE. WILL CONTINUE TO MONITOR. Addendum: 07/23/18 at 2027 by JEANNETTE GAMEZ RT Amended: Links added.
[2018-07-23] MEDS ORDERED: CEFEPIME 1 GM VIAL ONE (20:56)
[2018-07-23] MEDS: SENNOSIDES 8.6 MG TABLET GT SCH (21:10)
[2018-07-23] MEDS: CEFEPIME 1 GM in IV D5W 50 ML IV SCH (21:12)
[2018-07-24] VITALS (36 sets, daily range): BP systolic 123–171; BP diastolic 42–95
[2018-07-24 04:57] LABS: BASOPHILS # (AUTO) 0.1 /CMM (0.0-0.2); CALCIUM, SERUM 8.5 mg/dL (8.5-10.1); CARBON DIOXIDE 29 mmol/L (21-32); CHLORIDE 106 mmol/L (98-107); CREATININE 0.6 mg/dL (0.6-1.3); EOSINOPHILS % (AUTO) 2.3 % (0.0-6.0); GLUCOSE 107 mg/dL (74-106); HEMATOCRIT 26 % (33-45); HEMOGLOBIN 8.6 g/dL (11.5-14.8); LYMPHOCYTES # (AUTO) 0.9 /CMM (0.8-4.8); LYMPHOCYTES % (AUTO) 12.2 % (20.0-44.0); MEAN CORPUSCULAR HGB CONC 33 g/dl (31.0-36.0); MEAN CORPUSCULAR VOLUME 79 fL (82-100); MONOCYTES # (AUTO) 0.8 /CMM (0.1-1.30); MONOCYTES % (AUTO) 10.5 % (2.0-12.0); NEUTROPHILS # (AUTO) 5.5 /CMM (1.8-8.9); PLATELET COUNT (AUTO) 302 /CMM (150-450); POTASSIUM 4.1 mmol/L (3.5-5.1); RED BLOOD CELL COUNT(AUTO) 3.28 MIL/uL (4.0-5.2); SODIUM SERUM 142 mmol/L (136-145); UREA NITROGEN, BLOOD 24 mg/dL (7-18); WHITE BLOOD COUNT (AUTO) 7.4 K/uL (4.3-11.0)
[2018-07-24] MEDS: JEVITY 1.2 CAL 1,000 ML BOTTLE GT PRN (05:23)
[2018-07-24] MEDS: HYDROCODONE/APAP 5/325MG 1 EACH TABLET GT PRN (05:25)
--- NOTE | 2018-07-24 08:00 | NUR ---
RT Pt received orally intubated with with a 7.0 ETT secured at 23cm at the lip line. Pt is awake but does not follow commands. Vent alarms are set and audible with BVM by bedside. PHYSICAL THERAPIST AIDE cuff pressure noted. Vent is plugged into red outlet. Sx'd small thin/thick pale yellow secretions. No respiratory distress noted at this time, will continue to monitor. Addendum: 07/24/18 at 0817 by SHAGUFTA ORTEGA RT Amended: Links added.
[2018-07-24 08:35] LABS: ABG BASE EXCESS 3.3 mmol/L; ABG OXYGEN SATURATION 96.7 % (92.0-98.5); ABG PCO2 41.2 mmHg (35.0-45.0); ABG PH 7.445 (7.350-7.450); ABG PO2 94.6 mmHg (75.0-100.0); AaDO2 70.9 mmHg; COHb 0.5 % (0.5-1.5); MetHb 0.6 % (0.0-1.5); O2Hb 95.6 % (94.0-97.0); PEEP,BG 5 cm H2O; SITE, ABG Right Radial; VT, ABG 450 mL
[2018-07-24] MEDS: PANTOPRAZOLE 40 MG TABLET.DR PO SCH (08:36)
[2018-07-24] MEDS: LEVOTHYROXINE SODIUM 50 MCG TABLET GT SCH (08:37)
[2018-07-24] MEDS: LACTOBACILLUS RHAMNOSUS GG 1 EACH CAP.SPRINK GT SCH ×2 (08:37→17:39)
[2018-07-24] MEDS: MULTIVIT W/MINERALS 1 TAB TABLET GT SCH (08:37)
[2018-07-24] MEDS: ASCORBIC ACID 500 MG TABLET GT SCH ×2 (08:37→17:39)
[2018-07-24] MEDS: DOXYCYCLINE HYCLATE (100 MG) 100 MG TABLET PO SCH ×2 (08:37→21:10)
[2018-07-24] MEDS: FAMOTIDINE (20 MG) 20 MG TABLET GT SCH (08:37)
[2018-07-24] MEDS: ASPIRIN 81 MG TAB.CHEW GT SCH (08:37)
[2018-07-24] MEDS: AMLODIPINE BESYLATE 5 MG TABLET GT SCH ×2 (08:38→17:40)
[2018-07-24] MEDS: FERROUS SULFATE UDC 300 MG/5 ML UDC GT SCH (08:38)
[2018-07-24] MEDS: RIVASTIGMINE TARTRATE 1.5 MG CAPSULE GT SCH ×2 (08:39→21:10)
[2018-07-24] MEDS: MUPIROCIN OINT 2% 22 GM TUBE SCH ×2 (08:42→21:12)
[2018-07-24] MEDS: ENOXAPARIN SODIUM 30 MG/0.3 ML DISP.SYRIN SQ SCH (08:44)
[2018-07-24] MEDS: PROSOURCE / PROSTAT (PYXIS) 30 ML UDC GT SCH (08:44)
[2018-07-24] MEDS: CEFEPIME 1 GM in IV D5W 50 ML IV SCH ×2 (08:56→21:10)
--- NOTE | 2018-07-24 11:00 | NUR ---
DR ARNOLD IS HERE TO SEE PT, EEG AND CT ORDERED TO EVAL PT NEURO STATUS.
--- NOTE | 2018-07-24 14:04 | NUR ---
spoke to Dianna @ 1400 hrs . she stated that ordering MD is going to cancel exam. waiting to clarify
--- NOTE | 2018-07-24 15:00 | NUR ---
PT AWAKE, RESTLESS, DIFFICULTY FOLLOWING COMMANDS. PT VISITED FAMILY FRIENDS WHO STAT THAT PT HAS ADVANCE DEMENTIA AND BASE NEURO STATUS IS AWAKE BUT CONFUSED. DR ARNOLD NOTIFIED OK TO CANCEL CT AND EEG. DR ROMAN AT BEDSIDE, OK TO GIVE .25 ATIVAN iv AND SWITCH MODE TO CPAP RATE OF 5 PS OF 12. SONNY RT NOTIFIED.
[2018-07-24] MEDS: LORAZEPAM INJ 2 MG/ML VIAL IV PRN (15:27)
[2018-07-24 16:59] LABS: ABG OXYGEN SATURATION 96.3 % (92.0-98.5); ABG PCO2 37.8 mmHg (35.0-45.0); ABG PH 7.483 (7.350-7.450); AaDO2 81.5 mmHg; COHb 0.5 % (0.5-1.5); MetHb 0.7 % (0.0-1.5); O2Hb 95.1 % (94.0-97.0); SITE, ABG Right Radial; VENT MODE, BG CPAP 5 / PS 12
--- NOTE | 2018-07-24 17:00 | NUR ---
ABG OBTAINED ON CPAP MODE. DR ROMAN NOTIFIED OF RESULTS, OK TO KEEP C PAP MODE OVERNIGHT.
--- NOTE | 2018-07-24 19:00 | NUR ---
RECEIVED PT IN NO ACUTE DISTRESS IN BED. PT IS LETHARGIC. PT IS ON VENT VIA ETT. ETT IS CLEAN DRY AND INTACT. ETT IS 7.0/23 AT THE LIP. PT IS TOLERATING VENT SETTING WELL @ CPAP RATE 5, TV 450, FIO2 30%, PEEP 5, PS 12. PT IS ON TELE WITH SR-SB ON THE MONITOR. PT HAS GTUBE THAT IS CLEAN DRY INTACT AND PATENT WITH JEVITY @ 50ML/HR. PT HAS F/C THAT IS CLEAN DRY INTACT AND PATENT WITH YELLOW URINE DRAINING. PT HAS MACY MIDLINE THAT IS CLEAN DRY INTACT AND PATENT WITH NS @ TKO. PT HAS LAC 20G THAT IS CLEAN DRY INTACT AND PATENT WITH SALINE LOCK. BED IN LOW LOCK POSITION WITH RIALS UP X 2. CALL LIGHT WITHIN REACH AND ALL SAFETY MEASURES ENSURED AND CARRIED OUT. WILL CONTINUE TO MONITOR.
[2018-07-24] MEDS: NYSTATIN CREAM 15 GM TUBE TP SCH (19:20)
--- NOTE | 2018-07-24 20:09 | NUR ---
RECEIVED PT INTUBATED 7.0 ETT @23CM, VENT CPAP MODE. NO DISTRESS. PT TOLERATING VENT SETTINGS. SX'D FOR SML AMT OF THICK WHITE SECRETIONS. VENT ALARMS SET AND AUDIBLE. AMBU BAG AT BEDSIDE. VENT PLUGGED INTO RED OUTLET. WILL CONTINUE TO MONITOR. Addendum: 07/24/18 at 2012 by JEANNETTE GAMEZ RT Amended: Links added.
[2018-07-24] MEDS: SENNOSIDES 8.6 MG TABLET GT SCH (21:10)
[2018-07-25] VITALS (39 sets, daily range): BP systolic 110–163; BP diastolic 42–92
[2018-07-25] MEDS: LORAZEPAM INJ 2 MG/ML VIAL IV PRN ×3 (03:18→17:06)
[2018-07-25 05:08] LABS: BASOPHILS # (AUTO) 0.1 /CMM (0.0-0.2); BASOPHILS % (AUTO) 0.9 % (0.0-2.0); EOSINOPHILS % (AUTO) 1.5 % (0.0-6.0); HEMATOCRIT 26 % (33-45); HEMOGLOBIN 8.5 g/dL (11.5-14.8); LYMPHOCYTES # (AUTO) 0.8 /CMM (0.8-4.8); LYMPHOCYTES % (AUTO) 8.6 % (20.0-44.0); MEAN CORPUSCULAR HGB CONC 33 g/dl (31.0-36.0); MEAN CORPUSCULAR VOLUME 79 fL (82-100); MONOCYTES # (AUTO) 0.8 /CMM (0.1-1.30); MONOCYTES % (AUTO) 8.7 % (2.0-12.0); NEUTROPHILS # (AUTO) 7.3 /CMM (1.8-8.9); NEUTROPHILS % (AUTO) 80.3 % (43.0-81.0); PLATELET COUNT (AUTO) 303 /CMM (150-450); RED BLOOD CELL COUNT(AUTO) 3.26 MIL/uL (4.0-5.2); WHITE BLOOD COUNT (AUTO) 9.1 K/uL (4.3-11.0)
[2018-07-25 05:13] LABS: CALCIUM, SERUM 8.7 mg/dL (8.5-10.1); CARBON DIOXIDE 31 mmol/L (21-32); CHLORIDE 104 mmol/L (98-107); CREATININE 0.7 mg/dL (0.6-1.3); GLUCOSE 124 mg/dL (74-106); POTASSIUM 3.9 mmol/L (3.5-5.1); SODIUM SERUM 138 mmol/L (136-145); UREA NITROGEN, BLOOD 25 mg/dL (7-18)
--- NOTE | 2018-07-25 06:25 | NUR ---
PT REMAINS IN NO ACUTE DISTRESS IN BED. PT DID NOT HAVE ANY SIGNIFICANT CHANGE IN CONDITION DURING SHIFT. PT TOLERATED VENT SETTING WELL. ALL NEEDS MET, ALL ORDERS CARRIED OUT. WILL ENDORSE CARE TO AM RN FOR CONTINUITY OF CARE.
--- NOTE | 2018-07-25 07:00 | NUR ---
RN NOTES RECEIVED PT ON BED, LETHARGIC. ON VENT, INTUBATED , ETT IS 7.0/23 AT THE LIP.TOLERATING CURRENT C- PAP SETTING WELL, ON TELE WITH SB, HR IN HIGH 50'S, ON TF AT 50CC/HR VIA GT , TOLERATING WELL , NO RESIDUAL NOTED,LANG DRINING TO GRAVITY , R UA MIDLINE SITE CLEAN DRY INTACT , BED IN LOCKED AND LOWEST POSITION ,CALL LIGHT WITHIN REACH , WILL CONTINUE TO MONITOR.
[2018-07-25 07:43] LABS: ABG BASE EXCESS 5.1 mmol/L; ABG PCO2 36.3 mmHg (35.0-45.0); ABG PH 7.511 (7.350-7.450); AaDO2 88.3 mmHg; COHb 0.5 % (0.5-1.5); MetHb 0.7 % (0.0-1.5); O2Hb 94.8 % (94.0-97.0); SITE, ABG Right Radial
[2018-07-25] MEDS: PANTOPRAZOLE 40 MG TABLET.DR PO SCH (08:22)
[2018-07-25] MEDS: LEVOTHYROXINE SODIUM 50 MCG TABLET GT SCH (08:22)
[2018-07-25] MEDS: FERROUS SULFATE UDC 300 MG/5 ML UDC GT SCH (08:22)
[2018-07-25] MEDS: ASPIRIN 81 MG TAB.CHEW GT SCH (08:23)
[2018-07-25] MEDS: LACTOBACILLUS RHAMNOSUS GG 1 EACH CAP.SPRINK GT SCH ×2 (08:23→16:22)
[2018-07-25] MEDS: MULTIVIT W/MINERALS 1 TAB TABLET GT SCH (08:23)
[2018-07-25] MEDS: ASCORBIC ACID 500 MG TABLET GT SCH ×2 (08:23→16:22)
[2018-07-25] MEDS: AMLODIPINE BESYLATE 5 MG TABLET GT SCH ×2 (08:23→16:23)
[2018-07-25] MEDS: DOXYCYCLINE HYCLATE (100 MG) 100 MG TABLET PO SCH ×2 (08:23→20:43)
[2018-07-25] MEDS: FAMOTIDINE (20 MG) 20 MG TABLET GT SCH (08:23)
[2018-07-25] MEDS: RIVASTIGMINE TARTRATE 1.5 MG CAPSULE GT SCH ×2 (08:24→20:43)
[2018-07-25] MEDS: PROSOURCE / PROSTAT (PYXIS) 30 ML UDC GT SCH (08:25)
[2018-07-25] MEDS: ENOXAPARIN SODIUM 30 MG/0.3 ML DISP.SYRIN SQ SCH (08:26)
[2018-07-25] MEDS: NYSTATIN CREAM 15 GM TUBE TP SCH ×2 (08:27→16:24)
[2018-07-25] MEDS: MUPIROCIN OINT 2% 22 GM TUBE SCH (08:28)
[2018-07-25] MEDS: CEFEPIME 1 GM in IV D5W 50 ML IV SCH ×2 (08:29→20:40)
[2018-07-25] MEDS: risperiDONE 0.25 MG TABLET PO PRN (10:32)
--- NOTE | 2018-07-25 13:30 | NUR ---
RN NOTES DR ARNOLD NOTIFED REGARDING R ARM DVT , NO NEW ORDER RECEIVED , CONTINUE TO MONITOR.
--- NOTE | 2018-07-25 16:00 | NUR ---
RN NOTES ET SUCTION DONE, PT STABLE , CONTINUE TO MONITOR .
--- NOTE | 2018-07-25 17:28 | NUR ---
CORRECTION (((ETT #7.0 @ 23 CM LIPLINE ))) Addendum: 07/26/18 at 1117 by NEHAL ISBELL RT Amended: Links added.
--- NOTE | 2018-07-25 18:21 | NUR ---
RN NOTES VSS STABLE, TOLERATING CPAP SETTING WELL, NO SIGNIFICANT CHANGES NOTED ON THIS SHIFT , WILL ENDORSE TO PRODUCT DISTRIBUTION SPECIALIST NURSE FOR CONTINUITY OF CARE
--- NOTE | 2018-07-25 18:30 | NUR ---
CORRECTION ((( ETT # 7.0 @ 23 CM LIP LINE ))) Addendum: 07/26/18 at 1122 by NEHAL ISBELL RT Amended: Links added.
--- NOTE | 2018-07-25 18:30 | NUR ---
RT END OF THE SHIFT REPORT, PT. 87 Y OLD FEMALE REC.0700AM ORALLY INTUBATED ETT # 7.5 @23CM ON VENT WITH NOTED CPAP SETTINGS, NO CHANGES T/O DAY AND PT. REMAIN STABLE WITH NO DISTRESS, VITALIS REMAIN STABLE. B/S BILATERALLY RHONCHI, SUX'D FOR MOD./LRG AMT YELLOW SECRETIONS, PHOTORADIO OPERATOR DONE, EQUAL CHEST RISE NOTED, HME CHANGED, VENT PLUGGED INTO RED OUT LET. AMBU BAG REMAIN AT THE BEDSIDE. AND REPORT WILL PASS TO PM SHIFT. Addendum: 07/25/18 at 1835 by NEHAL ISBELL RT Amended: Links added.
--- NOTE | 2018-07-25 19:26 | NUR ---
horticulture superintendent. initial assessment, received the pt rest on the bed. ORALLY INTUBATED, ETT #7,LIP 23CM,PS 12, PEEP 5. SAT 98%. NO ACUTE DISTRESS NOTED. PT ON C PAP , INTERNATIONAL PROJECT MANAGER SHOWING JUNCTIONAL FIORELLA CARDIA, JOSE SOFT WRIST RESTRAINT CHECKED AND RELEASED. NO INJURY OR REDNESS NOTED, FC PATENT, GT INTACT, J EVITY 50ML/H. HOB ELEVATED, WILL CONTINUE TO MONITOR VITALS.
[2018-07-25] MEDS: SENNOSIDES 8.6 MG TABLET GT SCH (22:17)
[2018-07-26] VITALS (37 sets, daily range): BP systolic 110–163; BP diastolic 41–67
--- NOTE | 2018-07-26 03:33 | NUR ---
RN MATERNITY, AM CARE, ORAL CARE, BED BATH GIVEN. LINEN CHANGED. REMAINING SAME VENT SETTING TOLERATED WELL. SAT 99%, NO ACUTE DISTRESS NOTED, WAX BALL KNOCK OUT WORKER SHOWING MALCOLM AT THIS TIME. GT FEEDING TOLERATED WELL. FC PATENT, URINE DRAINING. HOB ELEVATED, TURN AND REPOSITION Q2H. JOSE SOFT WRIST RESTRAINT CHECKED AND RELEASED, NO INJURY OR REDNESS NOTED. WILL CONTINUE TO MONITOR VITALS.
[2018-07-26 04:54] LABS: BASOPHILS # (AUTO) 0.2 /CMM (0.0-0.2); BASOPHILS % (AUTO) 2.4 % (0.0-2.0); EOSINOPHILS % (AUTO) 1.5 % (0.0-6.0); HEMATOCRIT 28 % (33-45); HEMOGLOBIN 9.3 g/dL (11.5-14.8); LYMPHOCYTES % (AUTO) 11.2 % (20.0-44.0); MEAN CORPUSCULAR HGB CONC 33 g/dl (31.0-36.0); MEAN CORPUSCULAR VOLUME 80 fL (82-100); MONOCYTES # (AUTO) 0.6 /CMM (0.1-1.30); MONOCYTES % (AUTO) 6.7 % (2.0-12.0); NEUTROPHILS # (AUTO) 7.2 /CMM (1.8-8.9); NEUTROPHILS % (AUTO) 78.2 % (43.0-81.0); PLATELET COUNT (AUTO) 307 /CMM (150-450); RED BLOOD CELL COUNT(AUTO) 3.51 MIL/uL (4.0-5.2); WHITE BLOOD COUNT (AUTO) 9.2 K/uL (4.3-11.0)
[2018-07-26 05:03] LABS: CALCIUM, SERUM 8.9 mg/dL (8.5-10.1); CARBON DIOXIDE 34 mmol/L (21-32); CHLORIDE 104 mmol/L (98-107); CREATININE 0.7 mg/dL (0.6-1.3); GLUCOSE 97 mg/dL (74-106); POTASSIUM 3.7 mmol/L (3.5-5.1); SODIUM SERUM 140 mmol/L (136-145); UREA NITROGEN, BLOOD 27 mg/dL (7-18)
--- NOTE | 2018-07-26 07:00 | NUR ---
RN NOTES RECEIVED PT ON BED, LETHARGIC. ON VENT, INTUBATED , ETT IS 7.0/23 AT THE LIP.TOLERATING CURRENT C- PAP SETTING WELL, VSS STABLE , ON TF AT 50CC/HR VIA GT , TOLERATING WELL , NO RESIDUAL NOTED,LANG DRINING TO GRAVITY , R UA MIDLINE SITE CLEAN DRY INTACT , BED IN LOCKED AND LOWEST POSITION ,CALL LIGHT WITHIN EASY REACH , WILL CONTINUE TO MONITOR.
[2018-07-26] MEDS: CEFEPIME 1 GM in IV D5W 50 ML IV SCH ×2 (08:15→21:30)
[2018-07-26] MEDS: DOXYCYCLINE HYCLATE (100 MG) 100 MG TABLET PO SCH ×2 (08:15→21:29)
[2018-07-26] MEDS: LEVOTHYROXINE SODIUM 50 MCG TABLET GT SCH (08:16)
[2018-07-26] MEDS: FAMOTIDINE (20 MG) 20 MG TABLET GT SCH (08:16)
[2018-07-26] MEDS: LACTOBACILLUS RHAMNOSUS GG 1 EACH CAP.SPRINK GT SCH ×2 (08:16→16:45)
[2018-07-26] MEDS: RIVASTIGMINE TARTRATE 1.5 MG CAPSULE GT SCH ×2 (08:16→21:29)
[2018-07-26] MEDS: MULTIVIT W/MINERALS 1 TAB TABLET GT SCH (08:16)
[2018-07-26] MEDS: ASPIRIN 81 MG TAB.CHEW GT SCH (08:16)
[2018-07-26] MEDS: PANTOPRAZOLE 40 MG TABLET.DR PO SCH (08:16)
[2018-07-26] MEDS: risperiDONE 0.25 MG TABLET PO PRN (08:16)
[2018-07-26] MEDS: ASCORBIC ACID 500 MG TABLET GT SCH ×2 (08:16→16:45)
[2018-07-26] MEDS: AMLODIPINE BESYLATE 5 MG TABLET GT SCH ×2 (08:17→16:45)
[2018-07-26] MEDS: ENOXAPARIN SODIUM 30 MG/0.3 ML DISP.SYRIN SQ SCH (08:18)
[2018-07-26] MEDS: NYSTATIN CREAM 15 GM TUBE TP SCH ×2 (08:22→16:47)
[2018-07-26] MEDS: PROSOURCE / PROSTAT (PYXIS) 30 ML UDC GT SCH (08:23)
[2018-07-26] MEDS: FERROUS SULFATE UDC 300 MG/5 ML UDC GT SCH (08:25)
[2018-07-26] MEDS ORDERED: ENOXAPARIN SODIUM 30 MG/0.3 ML DISP.SYRIN SQ ONE (10:30)
--- NOTE | 2018-07-26 11:44 | NUR ---
RN NOTES DR JIM NOTIFED REGARDING PSCHY CONSULT , FACE SHEET FAXED TO [facility] .
--- NOTE | 2018-07-26 12:00 | NUR ---
RN NOTES CONSENT OBTAINED FOR TRACHEOSTOMY PLACEMENT FROM PT'S SECOND COUSIN IN [place] ( JAME OVIEDO ) AND PALCED IN THE CHART.
[2018-07-26] MEDS: LORAZEPAM INJ 2 MG/ML VIAL IV PRN ×2 (12:50→23:42)
[2018-07-26] MEDS: JEVITY 1.2 CAL 1,000 ML BOTTLE GT PRN (13:24)
--- NOTE | 2018-07-26 14:00 | NUR ---
RN NOTES R UPPER ARM MIDLINE D/GUICHO PER MD ORDER .
--- NOTE | 2018-07-26 16:00 | NUR ---
RN NOTES ET SUCTIONING DONE, CONTINUE TO MONITOR .
--- NOTE | 2018-07-26 18:18 | NUR ---
RN NOTES PT REMAINS THE SAME , NO SIGNIFCATN CHANGES NOTED ON THIS SHIFT , WILL ENDOSE TO FRUIT CUTTER NURSE FOR CONTIGUITY OF CARE .
--- NOTE | 2018-07-26 18:41 | NUR ---
RT END OF THE SHIFT REPORT, PT. 87 Y OLD FEMALE REC. IN AM PT. ORALLY INTUBATED ETT # 7.0 @22 CM LIP LINE ON VENT WITH NOTED SETTINGS, NO CHANGES T/O DAY AND PT. REMAIN STABLE, AWAKE AND RESPONSIVE. ABG CANCELLED PER DR. DELEON AND NO WEANING ORDER. PT. REMAIN ON CPAP MODE. B/S BILATERALLY RALES, SUX'D FOR MOD/AMT AMT THICK YELLOW SECRETIONS, ALBERENE STONE SETTER DONE, EQUAL CHEST RISE NOTED, HME CHANGED, VENT PLUGGED INTO RED OUT LET. AMBU BAG REMAIN AT THE BEDSIDE. REPORT WILL PASS TO PM SHIFT. Addendum: 07/26/18 at 1842 by NEHAL ISBELL RT Amended: Links added.
[2018-07-26] MEDS: SENNOSIDES 8.6 MG TABLET GT SCH (21:29)
--- NOTE | 2018-07-26 23:44 | NUR ---
NURSE SITTER PT NOTED TO BE VERY AGITATED; ATTEMPTING TO SIT UP. PT IS INTUBATED. OFF SEDATION. BLSW RESTRAINTS IN PLACE. ATIVAN 0.25 MG IVP GIVEN. CONTINUE TO MONITOR.
[2018-07-27] VITALS (30 sets, daily range): BP systolic 136–180; BP diastolic 47–117
[2018-07-27 04:18] LABS: BASOPHILS # (AUTO) 0.1 /CMM (0.0-0.2); BASOPHILS % (AUTO) 0.8 % (0.0-2.0); EOSINOPHILS % (AUTO) 1.5 % (0.0-6.0); HEMATOCRIT 29 % (33-45); HEMOGLOBIN 9.6 g/dL (11.5-14.8); LYMPHOCYTES # (AUTO) 0.9 /CMM (0.8-4.8); LYMPHOCYTES % (AUTO) 10.8 % (20.0-44.0); MEAN CORPUSCULAR HGB CONC 33 g/dl (31.0-36.0); MEAN CORPUSCULAR VOLUME 79 fL (82-100); MONOCYTES # (AUTO) 0.7 /CMM (0.1-1.30); MONOCYTES % (AUTO) 8.4 % (2.0-12.0); NEUTROPHILS # (AUTO) 6.4 /CMM (1.8-8.9); NEUTROPHILS % (AUTO) 78.5 % (43.0-81.0); PLATELET COUNT (AUTO) 307 /CMM (150-450); RED BLOOD CELL COUNT(AUTO) 3.68 MIL/uL (4.0-5.2); WHITE BLOOD COUNT (AUTO) 8.2 K/uL (4.3-11.0)
[2018-07-27 04:35] LABS: CALCIUM, SERUM 8.7 mg/dL (8.5-10.1); CARBON DIOXIDE 31 mmol/L (21-32); CHLORIDE 104 mmol/L (98-107); CREATININE 0.8 mg/dL (0.6-1.3); GLUCOSE 116 mg/dL (74-106); POTASSIUM 3.9 mmol/L (3.5-5.1); SODIUM SERUM 139 mmol/L (136-145); UREA NITROGEN, BLOOD 31 mg/dL (7-18)
--- NOTE | 2018-07-27 07:30 | NUR ---
RECEIVED PATIENT INTUBATED 7. TOLERATING VENT SETTINGS NO SOB DIFFICULTY BREATHING. PATIENT AWAKE AND RESTLESS. LANG CATH TO GRAVITY. IV SITES C/D/I/P. SAFETY, SKIN, ASPIRATION, AND ISOLATION PRECAUTIONS IN PLACE AND WILL MONITOR
[2018-07-27] MEDS ORDERED: DC PROPOFOL WHEN EXTUBATED XX PRN (08:00)
[2018-07-27] MEDS: FAMOTIDINE (20 MG) 20 MG TABLET GT SCH (08:29)
[2018-07-27] MEDS: ASCORBIC ACID 500 MG TABLET GT SCH ×2 (08:29→17:51)
[2018-07-27] MEDS: DOXYCYCLINE HYCLATE (100 MG) 100 MG TABLET PO SCH (08:29)
[2018-07-27] MEDS: MULTIVIT W/MINERALS 1 TAB TABLET GT SCH (08:29)
[2018-07-27] MEDS: ASPIRIN 81 MG TAB.CHEW GT SCH (08:29)
[2018-07-27] MEDS: LACTOBACILLUS RHAMNOSUS GG 1 EACH CAP.SPRINK GT SCH ×2 (08:29→17:51)
[2018-07-27] MEDS: LEVOTHYROXINE SODIUM 50 MCG TABLET GT SCH (08:29)
[2018-07-27] MEDS: FERROUS SULFATE UDC 300 MG/5 ML UDC GT SCH (08:29)
[2018-07-27] MEDS: PANTOPRAZOLE 40 MG TABLET.DR PO SCH (08:29)
[2018-07-27] MEDS: LOSARTAN POTASSIUM 25 MG TABLET PO SCH (08:31)
[2018-07-27] MEDS: PROSOURCE / PROSTAT (PYXIS) 30 ML UDC GT SCH (08:31)
[2018-07-27] MEDS: Z GUARD REMEDY 2 OZ OINT TP PRN ×2 (08:31→18:22)
[2018-07-27] MEDS: AMLODIPINE BESYLATE 5 MG TABLET GT SCH ×2 (08:31→18:22)
[2018-07-27] MEDS: ENOXAPARIN SODIUM 60 MG/0.6 ML DISP.SYRIN SQ SCH (08:37)
[2018-07-27] MEDS: NYSTATIN CREAM 15 GM TUBE TP SCH ×2 (08:44→18:22)
[2018-07-27] MEDS: CEFEPIME 1 GM in IV D5W 50 ML IV SCH (08:45)
[2018-07-27 08:56] LABS: ABG OXYGEN SATURATION 96.4 % (92.0-98.5); ABG PCO2 41.2 mmHg (35.0-45.0); ABG PH 7.467 (7.350-7.450); ABG PO2 89.7 mmHg (75.0-100.0); AaDO2 75.8 mmHg; COHb 0.2 % (0.5-1.5); MetHb 0.5 % (0.0-1.5); O2Hb 95.7 % (94.0-97.0); PEEP,BG 5 cm H2O; SITE, ABG Left Radial; VENT MODE, BG CPAP PS 12
--- NOTE | 2018-07-27 09:04 | NUR ---
RT PER DR DELEON PATIENT WAS EXTUBATED AND PLACED ON 3L N/C NIKI WELL. NO SOB AT THIS TIME.
--- NOTE | 2018-07-27 09:05 | NUR ---
PATIENT EXTUBATED PER DR DELEON ORDER. PATIENT ON LOW FLOW 02 NASAL CANNULA AND TOLERATING WELL. ABLE TO PROTECT AIRWAY AND GAG REFLEX PRESENT. WILL MONITOR
--- NOTE | 2018-07-27 13:13 | NUR ---
PER DR JIM REQUEST EKG TAKEN BEFORE ANY MEDICATIONS PRESCRIBED. SENT PER REQUEST.
[2018-07-27] MEDS ORDERED: risperiDONE 0.25 MG TABLET PO PRN (13:30)
--- NOTE | 2018-07-27 19:19 | NUR ---
CARE ENDORSED TO BRADLEY ORANTES FOR ARNOL. PATIENT RESTING COMFORTABLY. LANG TO GRAVITY PATENT. TOLERATING NC WITHOUT COMPLICATION. SAFETY, SKIN, ASPIRATION PRECAUTIONS IN PLACE AND MONITORED
--- NOTE | 2018-07-27 19:30 | NUR ---
WIRE WEB WORKER RCD PT W/DX SEPSIS; RESP FAIL; PT IS ALERT BUT DOES NOT FOLLOW COMMANDS; NOTED WITH MOMENTS OF AGITATION; BL SOFT WRIST RESTRAINTS IN PLACE FOR SAFETY. NSR ON MONITOR. GTUBE WITH JEVITY AT 50 ML/HR NO RESIDUAL NOTED AT THIS TIME. PT EXTUBATED TODAY NO DISTRESS NOTED. TOLERATING O2 VIA NC. CONTINUE TO MONITOR.
[2018-07-27] MEDS: JEVITY 1.2 CAL 1,000 ML BOTTLE GT PRN (20:40)
[2018-07-27] MEDS: SENNOSIDES 8.6 MG TABLET GT SCH (22:00)
[2018-07-28] VITALS (19 sets, daily range): BP systolic 136–170; BP diastolic 51–86
[2018-07-28 04:34] LABS: BASOPHILS # (AUTO) 0.1 /CMM (0.0-0.2); EOSINOPHILS % (AUTO) 1.1 % (0.0-6.0); HEMATOCRIT 31 % (33-45); HEMOGLOBIN 10.3 g/dL (11.5-14.8); LYMPHOCYTES % (AUTO) 10.4 % (20.0-44.0); MEAN CORPUSCULAR HGB CONC 34 g/dl (31.0-36.0); MEAN CORPUSCULAR VOLUME 78 fL (82-100); MONOCYTES % (AUTO) 10.3 % (2.0-12.0); NEUTROPHILS # (AUTO) 7.7 /CMM (1.8-8.9); NEUTROPHILS % (AUTO) 77.2 % (43.0-81.0); PLATELET COUNT (AUTO) 347 /CMM (150-450); RED BLOOD CELL COUNT(AUTO) 3.91 MIL/uL (4.0-5.2); WHITE BLOOD COUNT (AUTO) 9.9 K/uL (4.3-11.0)
[2018-07-28 04:42] LABS: CALCIUM, SERUM 9.2 mg/dL (8.5-10.1); CARBON DIOXIDE 27 mmol/L (21-32); CHLORIDE 107 mmol/L (98-107); CREATININE 0.8 mg/dL (0.6-1.3); GLUCOSE 129 mg/dL (74-106); POTASSIUM 4.3 mmol/L (3.5-5.1); SODIUM SERUM 144 mmol/L (136-145); UREA NITROGEN, BLOOD 24 mg/dL (7-18)
--- NOTE | 2018-07-28 07:18 | NUR ---
DOCKING PILOT NO CHANGE IN PT CONDITION. PT REMAINED ON 02 5L NC. NO AGITATION NOTED HOWEVER PT REMAINED IN BL SOFT WRIST RESTRAINTS SHE CONTINUES TO BE CONFUSED AND DOES NOT FOLLOW COMMANDS.
[2018-07-28] MEDS ORDERED: FUROSEMIDE 20 MG/2 ML VIAL IV ONE (08:00)
--- NOTE | 2018-07-28 08:10 | NUR ---
INITIAL PROFILING MACHINE SET UP OPERATOR TOOL NOTE RCVD PT AWAKE AND ALERT, RESPONDS TO NAME AT TIMES, NOT FOLLOWING COMMANDS. BILATERAL SOFT WRIST RESTRAINTS IN PLACE, CIRCULATION CHECKS DONE. SR ON MONITOR, TOLERATING O2 VIA NASAL CANNULA, LANG TO GRAVITY DRAINING CLEAR, YELLOW URINE, PEG PLACEMENT VERIFIED BY AUSCULTATION/ASPIRATION OF GASTRIC CONTENTS AND NO RESIDUAL OBTAINED. LEFT HAND #20 C/D/I/PATENT. NO S/O INFILTRATION/PHLEBITIS OBSERVED UPON FLUSHING, BED IN LOW AND LOCKED POSITION. CALL LIGHT WITHIN REACH. HEAD OF BED ELEVATED.
[2018-07-28] MEDS: ASPIRIN 81 MG TAB.CHEW GT SCH (08:17)
[2018-07-28] MEDS: ASCORBIC ACID 500 MG TABLET GT SCH ×2 (08:17→17:01)
[2018-07-28] MEDS: LACTOBACILLUS RHAMNOSUS GG 1 EACH CAP.SPRINK GT SCH ×2 (08:17→17:01)
[2018-07-28] MEDS: FAMOTIDINE (20 MG) 20 MG TABLET GT SCH (08:17)
[2018-07-28] MEDS: FERROUS SULFATE UDC 300 MG/5 ML UDC GT SCH (08:17)
[2018-07-28] MEDS: LEVOTHYROXINE SODIUM 50 MCG TABLET GT SCH (08:17)
[2018-07-28] MEDS: MULTIVIT W/MINERALS 1 TAB TABLET GT SCH (08:17)
[2018-07-28] MEDS: LOSARTAN POTASSIUM 25 MG TABLET PO SCH (08:17)
[2018-07-28] MEDS: AMLODIPINE BESYLATE 5 MG TABLET GT SCH ×2 (08:17→17:02)
[2018-07-28] MEDS: PANTOPRAZOLE 40 MG/PACK PACK GT SCH (08:17)
[2018-07-28] MEDS: PROSOURCE / PROSTAT (PYXIS) 30 ML UDC GT SCH (08:18)
[2018-07-28] MEDS: NYSTATIN CREAM 15 GM TUBE TP SCH ×2 (08:19→19:22)
[2018-07-28] MEDS: ENOXAPARIN SODIUM 60 MG/0.6 ML DISP.SYRIN SQ SCH (08:21)
[2018-07-28 08:52] LABS: ABG BASE EXCESS 3.7 mmol/L; ABG OXYGEN SATURATION 97.4 % (92.0-98.5); ABG PCO2 21.5 mmHg (35.0-45.0); ABG PH 7.651 (7.350-7.450); ABG PO2 89.6 mmHg (75.0-100.0); AaDO2 170.9 mmHg; COHb 0.2 % (0.5-1.5); MetHb 0.4 % (0.0-1.5); O2Hb 96.8 % (94.0-97.0); SITE, ABG Left Radial; VENT MODE, BG 5L NC
--- NOTE | 2018-07-28 11:38 | NUR ---
SHEET MANUFACTURING SUPERVISOR NOTE PT TRANSPORTED TO RADIOLOGY DEPARTMENT FOR CT HEAD VIA BED PER PROTOCOL. PT TOLERATED TRANSPORT AND PROCEDURE WELL. VITAL SIGNS REMAINED STABLE.
[2018-07-28] MEDS: hydrALAZINE HCL IV 20 MG VIAL IV PRN (12:52)
[2018-07-28] MEDS: ACETAMINOPHEN 325 MG TABLET PO PRN (12:52)
--- NOTE | 2018-07-28 14:00 | NUR ---
RN NOTE RECEIVED PT ON BED , AWAKE AND ALERT, RESTLESS, DOES NOT FOLLOW COMMANDS , ON 5L O2 N/C , O2 SAT 94%, ON TELE SR , HR IN 80'S , BILATERAL SOFT WRIST RESTRAINTS IN PLACE, CIRCULATION CHECKS DONE. LANG DRAINING TO GRAVITY WITH CLEAR, YELLOW URINE, PEG PLACEMENT VERIFIED BY AUSCULTATION/ASPIRATION OF GASTRIC CONTENTS AND NO RESIDUAL OBTAINED.TF AT 50CC /HR RUNNING VIA PEG , LEFT HAND IV G 20 SITE CLEAN, DRY AND INTACT, BED IN LOW AND LOCKED POSITION. CALL LIGHT WITHIN EASY REACH. CONTINUE TO MONITOR .
--- NOTE | 2018-07-28 14:06 | NUR ---
TRANSFER OF CARE NOTE PT'S CARE ENDORSED TO BRADLEY BYRNES FOR CONTINUITY OF CARE. BED IN LOW AND LOCKED POSITION. CALL LIGHT WITHIN REACH, HEAD OF BED ELEVATED. VITAL SIGNS STABLE. PT AWAKE AND ALERT TO NAME, SR ON MONITOR, TOLERATING O2 VIA NC, LANG TO GRAVITY DRAINING CLEAR, YELLOW URINE, LEFT HAND IV SITE C/D/I/PATENT, NO S/O INFILTRATION/PHLEBITIS OBSERVED UPON FLUSHING.
[2018-07-28] MEDS: DIVALPROEX SODIUM 125 MG TABLET.DR PO SCH ×2 (15:31→17:01)
--- NOTE | 2018-07-28 16:30 | NUR ---
RN NOTES PT TRANSFERRED TO ROOM 106, LALA STATUS, VIA ACLS PROTOCOL IN STABLE CONDITION. REPORT GIVEN TO NICCI HUERTA FOR CONTINUITY OF CARE .
[2018-07-28] MEDS: BENZTROPINE MESYLATE (1 MG) 1 MG TABLET PO SCH (17:01)
--- NOTE | 2018-07-28 17:30 | NUR ---
LALA RN INITIAL NOTE RECEIVED REPORT FROM FITZ HUERTA ICU.PT RECEIVED IN BED. AWAKE AND ALERT, RESTLESS, DOES NOT FOLLOW COMMANDS , ON 5L O2 N/C . ON TELE SR , HR 98,ON BILATERAL SOFT WRIST RESTRAINTS , CIRCULATION CHECKS DONE. LANG DRAINING TO GRAVITY WITH CLEAR, YELLOW URINE.GTF AT 50CC /HR RUNNING VIA PEG , LEFT HAND IV G 20 SITE CLEAN, DRY AND INTACT, BED IN LOW AND LOCKED POSITION. CALL LIGHT WITHIN EASY REACH. SRX3.CONTINUE TO MONITOR .
--- NOTE | 2018-07-28 18:41 | NUR ---
LALA RN NOTE PATIENT IN BED.BILATERAL SOFT RESTRAINT.WILL ENDORSE TO PM NURSE FOR ARNOL.
--- NOTE | 2018-07-28 20:00 | NUR ---
LALA RN INITIAL NOTE RECEIVED IN BED. AWAKE AND ALERT, RESTLESS, DOES NOT FOLLOW COMMANDS , ON 5L O2 N/C . ON TELE SR , HR 90'S ,ON BILATERAL SOFT WRIST RESTRAINTS , CIRCULATION CHECKS DONE. LANG DRAINING TO GRAVITY WITH CLEAR, YELLOW URINE.GTF AT 50CC /HR RUNNING VIA PEG , LEFT HAND IV G 20 SITE CLEAN, DRY AND INTACT, BED IN LOW AND LOCKED POSITION. CALL LIGHT WITHIN EASY REACH. SRX3.CONTINUE TO MONITOR .
[2018-07-28] MEDS: risperiDONE 0.25 MG TABLET PO SCH (22:00)
[2018-07-28] MEDS: SENNOSIDES 8.6 MG TABLET GT SCH (22:19)
[2018-07-29] VITALS (7 sets, daily range): BP systolic 113–137; BP diastolic 44–62
[2018-07-29] MEDS: JEVITY 1.2 CAL 1,000 ML BOTTLE GT PRN (04:18)
--- NOTE | 2018-07-29 06:30 | NUR ---
LALA RN CLOSING NOTE ENDORSED IN BED. ASLEEP IN BED, ON 5L O2 N/C . ON TELE SR , HR 70'S ,ON BILATERAL SOFT WRIST RESTRAINTS , CIRCULATION CHECKS DONE. LANG DRAINING TO GRAVITY WITH CLEAR, YELLOW URINE, 600 CC O/P .GTF AT 50CC /HR RUNNING VIA PEG , LEFT HAND IV G 20 SITE CLEAN, DRY AND INTACT, BED IN LOW AND LOCKED POSITION. CALL LIGHT WITHIN EASY REACH. SRX3.CONTINUE TO MONITOR .
[2018-07-29 06:38] LABS: CALCIUM, SERUM 8.9 mg/dL (8.5-10.1); CARBON DIOXIDE 28 mmol/L (21-32); CHLORIDE 103 mmol/L (98-107); CREATININE 0.8 mg/dL (0.6-1.3); GLUCOSE 131 mg/dL (74-106); POTASSIUM 4.1 mmol/L (3.5-5.1); SODIUM SERUM 139 mmol/L (136-145); UREA NITROGEN, BLOOD 34 mg/dL (7-18)
[2018-07-29 06:45] LABS: BASOPHILS # (AUTO) 0.1 /CMM (0.0-0.2); BASOPHILS % (AUTO) 1.5 % (0.0-2.0); EOSINOPHILS % (AUTO) 1.7 % (0.0-6.0); HEMATOCRIT 31 % (33-45); HEMOGLOBIN 10.4 g/dL (11.5-14.8); LYMPHOCYTES # (AUTO) 0.9 /CMM (0.8-4.8); LYMPHOCYTES % (AUTO) 13.1 % (20.0-44.0); MEAN CORPUSCULAR HGB CONC 33 g/dl (31.0-36.0); MEAN CORPUSCULAR VOLUME 79 fL (82-100); MONOCYTES # (AUTO) 0.8 /CMM (0.1-1.30); MONOCYTES % (AUTO) 11.5 % (2.0-12.0); NEUTROPHILS # (AUTO) 5.1 /CMM (1.8-8.9); NEUTROPHILS % (AUTO) 72.2 % (43.0-81.0); PLATELET COUNT (AUTO) 327 /CMM (150-450); RED BLOOD CELL COUNT(AUTO) 3.98 MIL/uL (4.0-5.2)
--- NOTE | 2018-07-29 08:32 | NUR ---
RN INITIAL NOTES RECEIVED PT RESTING IN BED ON O2 INH @ 5 l/MIN VIA NC. SINUS FIORELLA ON THE MONITOR. PT OPENS EYES TO STIMULI. GT IN PLACE AND FEEDING TOLERATED WELL; HOB KEPT ELEVATED. JOSE WRIST RESTRAINTS IN PLACE, RELEASED; ROM DONE; SKIN AND CIRCULATION WNL. LANG CATH DRAINING THRU GRAVITY TO CLEAR YELLOW URINE. POSITIONED FOR COMFORT; SAFETY ENSURED. WILL MONITOR ACCORDINGLY.
[2018-07-29] MEDS: FERROUS SULFATE UDC 300 MG/5 ML UDC GT SCH (08:53)
[2018-07-29] MEDS: MULTIVIT W/MINERALS 1 TAB TABLET GT SCH (08:53)
[2018-07-29] MEDS: risperiDONE 0.25 MG TABLET PO SCH ×3 (08:54→21:22)
[2018-07-29] MEDS: BENZTROPINE MESYLATE (1 MG) 1 MG TABLET PO SCH ×2 (08:55→17:07)
[2018-07-29] MEDS: ASPIRIN 81 MG TAB.CHEW GT SCH (08:55)
[2018-07-29] MEDS: DIVALPROEX SODIUM 125 MG TABLET.DR PO SCH ×3 (08:55→17:07)
[2018-07-29] MEDS: LOSARTAN POTASSIUM 25 MG TABLET PO SCH (08:55)
[2018-07-29] MEDS: FAMOTIDINE (20 MG) 20 MG TABLET GT SCH (08:56)
[2018-07-29] MEDS: ASCORBIC ACID 500 MG TABLET GT SCH ×2 (08:56→17:06)
[2018-07-29] MEDS: PANTOPRAZOLE 40 MG/PACK PACK GT SCH (08:56)
[2018-07-29] MEDS: LACTOBACILLUS RHAMNOSUS GG 1 EACH CAP.SPRINK GT SCH ×2 (08:56→17:06)
[2018-07-29] MEDS: ENOXAPARIN SODIUM 60 MG/0.6 ML DISP.SYRIN SQ SCH (08:57)
[2018-07-29] MEDS: PROSOURCE / PROSTAT (PYXIS) 30 ML UDC GT SCH (08:59)
[2018-07-29] MEDS: AMLODIPINE BESYLATE 5 MG TABLET GT SCH ×2 (08:59→17:07)
[2018-07-29] MEDS: LEVOTHYROXINE SODIUM 50 MCG TABLET GT SCH (09:23)
[2018-07-29] MEDS: NYSTATIN CREAM 15 GM TUBE TP SCH ×2 (12:11→17:08)
--- NOTE | 2018-07-29 18:37 | NUR ---
rn closing notes no significant changes during this shift. turned and repositioned with both heels kept offloaded. gtf tolerated well, no residuals. all needs attended. will endorse to next shift for continuity of care in stable condition.
--- NOTE | 2018-07-29 20:14 | NUR ---
MS RN NOTES RECEIVED PATIENT ASLEEP IN BED WITH NO DISTRESS NOTED. CALL LIGHT WITHIN REACH. NO FACIAL GRIMACING OR GROANING TO INDICATE PAIN OR DISCOMFORT. PERIPHERAL LINE INTACT AND PATENT. BED IN LOW LOCK SETTING. ALL BELONGINGS KEPT NEAR BEDSIDE. WILL CONTINUE TO MONITOR.
[2018-07-29] MEDS: SENNOSIDES 8.6 MG TABLET GT SCH (21:22)
[2018-07-30] VITALS: BP 113/57
[2018-07-30 04:13] VITALS: BP_SYST 113; BP_SYST 116; BP_DIAS 57
[2018-07-30] MEDS: JEVITY 1.2 CAL 1,000 ML BOTTLE GT PRN (06:03)
[2018-07-30 06:21] LABS: BASOPHILS # (AUTO) 0.1 /CMM (0.0-0.2); BASOPHILS % (AUTO) 1.3 % (0.0-2.0); EOSINOPHILS % (AUTO) 1.3 % (0.0-6.0); HEMATOCRIT 30 % (33-45); LYMPHOCYTES # (AUTO) 0.9 /CMM (0.8-4.8); LYMPHOCYTES % (AUTO) 9.8 % (20.0-44.0); MEAN CORPUSCULAR HGB CONC 33 g/dl (31.0-36.0); MEAN CORPUSCULAR VOLUME 79 fL (82-100); MONOCYTES # (AUTO) 0.7 /CMM (0.1-1.30); MONOCYTES % (AUTO) 8.1 % (2.0-12.0); NEUTROPHILS # (AUTO) 7.1 /CMM (1.8-8.9); NEUTROPHILS % (AUTO) 79.5 % (43.0-81.0); PLATELET COUNT (AUTO) 317 /CMM (150-450); RED BLOOD CELL COUNT(AUTO) 3.84 MIL/uL (4.0-5.2); WHITE BLOOD COUNT (AUTO) 8.9 K/uL (4.3-11.0)
[2018-07-30 06:33] LABS: CALCIUM, SERUM 8.9 mg/dL (8.5-10.1); CARBON DIOXIDE 29 mmol/L (21-32); CHLORIDE 104 mmol/L (98-107); CREATININE 0.9 mg/dL (0.6-1.3); GLUCOSE 146 mg/dL (74-106); POTASSIUM 4.3 mmol/L (3.5-5.1); SODIUM SERUM 140 mmol/L (136-145); UREA NITROGEN, BLOOD 47 mg/dL (7-18)
--- NOTE | 2018-07-30 06:37 | NUR ---
MS RN NOTES PATIENT ASLEEP IN BED WITH NO DISTRESS NOTED. CALL LIGHT WITHIN REACH. GTF RUNNING JEVITY 1.2 AIDA AT 50ML/HR AND TOLERATING WELL. NO FACIAL GRIMACING OR GROANING TO INDICATE PAIN OR DISCOMFORT. PERIPHERAL LINE INTACT AND PATENT. FC INTACT, PATENT, AND DRAINED 1000ML YELLOW CLEAR URINE. CONTACT ISOLATION OBSERVED AND MAINTAINED AT ALL TIMES. BED IN LOW LOCK SETTING. ALL BELONGINGS KEPT NEAR BEDSIDE. WILL ENDORSE TO ONCOMING SHIFT.
--- NOTE | 2018-07-30 07:25 | NUR ---
MS RN OPENING NOTE RECEIVED PATIENT ASLEEP IN BED, ON 5L O2 N/C . BILATERAL SOFT WRIST RESTRAINTS , LANG DRAINING TO GRAVITY WITH CLEAR, YELLOW URINE, G-TUBE INTACT AND PATENT W/ 50CC /HR RUNNING VIA PEG , LEFT HAND IV G 20 SITE CLEAN, DRY AND INTACT, SAFETY MEASURES IN PLACE, BED IN LOW AND LOCKED POSITION. CALL LIGHT WITHIN EASY REACH. WILL CONTINUE TO MONITOR .
[2018-07-30] MEDS: DIVALPROEX SODIUM 125 MG TABLET.DR PO SCH ×2 (07:41→13:46)
[2018-07-30] MEDS: LEVOTHYROXINE SODIUM 50 MCG TABLET GT SCH (07:41)
[2018-07-30] MEDS: risperiDONE 0.25 MG TABLET PO SCH ×4 (07:41→21:16)
[2018-07-30 08:00] VITALS: BP_SYST 130; BP_SYST 99; BP_DIAS 130; BP_DIAS 46
[2018-07-30] MEDS: ASCORBIC ACID 500 MG TABLET GT SCH ×2 (08:27→17:19)
[2018-07-30] MEDS: FERROUS SULFATE UDC 300 MG/5 ML UDC GT SCH (08:27)
[2018-07-30] MEDS: MULTIVIT W/MINERALS 1 TAB TABLET GT SCH (08:28)
[2018-07-30] MEDS: AMLODIPINE BESYLATE 5 MG TABLET GT SCH ×2 (08:28→17:20)
[2018-07-30] MEDS: PANTOPRAZOLE 40 MG/PACK PACK GT SCH (08:28)
[2018-07-30] MEDS: LOSARTAN POTASSIUM 25 MG TABLET PO SCH (08:28)
[2018-07-30] MEDS: BENZTROPINE MESYLATE (1 MG) 1 MG TABLET PO SCH ×2 (08:28→17:19)
[2018-07-30] MEDS: ASPIRIN 81 MG TAB.CHEW GT SCH (08:29)
[2018-07-30] MEDS: LACTOBACILLUS RHAMNOSUS GG 1 EACH CAP.SPRINK GT SCH ×2 (08:29→17:19)
[2018-07-30] MEDS: FAMOTIDINE (20 MG) 20 MG TABLET GT SCH (08:29)
[2018-07-30] MEDS: ENOXAPARIN SODIUM 60 MG/0.6 ML DISP.SYRIN SQ SCH (08:30)
[2018-07-30] MEDS: PROSOURCE / PROSTAT (PYXIS) 30 ML UDC GT SCH (08:32)
[2018-07-30] MEDS: NYSTATIN CREAM 15 GM TUBE TP SCH ×2 (08:57→17:29)
[2018-07-30] MEDS ORDERED: IV NS 0.9% 1,000 ML BAG IV PRN (11:30)
[2018-07-30] MEDS: IV NS 0.9% 1,000 ML IV PRN (13:57)
[2018-07-30 14:00] VITALS: BP 108/42
[2018-07-30] MEDS ORDERED: DIVALPROEX SODIUM 125 MG CAP.SPRINK GT SCH (15:30)
[2018-07-30 16:00] VITALS: BP 130/46
[2018-07-30] MEDS: VALPROIC ACID 250 MG/5 ML UDC GT SCH (17:18)
--- NOTE | 2018-07-30 19:05 | NUR ---
RN MS NOTES RECEIVED PATIENT IN BED AWAKE, ALERT AND ORIENTED X1, EYES OPEN, ON 4 L VIA NASAL, RESPIRATIONS EVEN AND UNLABORED WITH EQUAL RISE AND FALL OF CHEST, ON ACUTE MEDICAL RESTRAINTS SOFT BILATERAL WRIST, SKIN ASSESSED, CIRCULATION PRESENT, PULSES PALPABLE, SKIN WNL. LANG CATHETER INTACT AND DRAINING URINE YELLOW, HEAD OF ELEVATED FOR ASPIRATION PRECAUTIONS, GTUBE INTACT AND PATENT, NO RESIDUALS PRESENT, TOLERATING FEEDING WELL, IV SITE TO LEFT HAND, #20G INTACT AND PATENT IVF RUNNING ORDERED, HEELS OFFLOADED AND INTACT, ORIENTED TO STAFF AND CALL LIGHT AND KEPT WITHIN REACH, REPOSITIONED, ALL NEEDS ATTENDED AT THIS TIME ,REMAINS COMFORTABLE, WILL CONTINUE TO MONITOR, APPEARS TO BE FREE OF ANY PAIN OR DISCOMFORT. Addendum: 07/31/18 at 0640 by KEYLA BROTHERS RN RN MS OPENING NOTES
--- NOTE | 2018-07-30 19:59 | NUR ---
MS RN CLOSING NOTE PATIENT ASLEEP IN BED, ON 5L O2 N/C . BILATERAL SOFT WRIST RESTRAINTS , LANG DRAINING TO GRAVITY WITH CLEAR, YELLOW URINE, G-TUBE INTACT AND PATENT W/ 50CC /HR RUNNING VIA PEG , LEFT HAND IV G 20 SITE CLEAN, DRY AND INTACT, SAFETY MEASURES IN PLACE, BED IN LOW AND LOCKED POSITION. CALL LIGHT WITHIN EASY REACH. CARE ENDORSED TO OFFICE MACHINE INSTALLER RN.
[2018-07-30 20:00] VITALS: BP 144/47
[2018-07-30] MEDS: SENNOSIDES 8.6 MG TABLET GT SCH (21:16)
[2018-07-31] VITALS: BP 144/47
[2018-07-31] MEDS: IV NS 0.9% 1,000 ML IV PRN ×2 (00:18→18:34)
[2018-07-31 04:00] VITALS: BP 156/57
[2018-07-31] MEDS: JEVITY 1.2 CAL 1,000 ML BOTTLE GT PRN (04:34)
--- NOTE | 2018-07-31 06:40 | NUR ---
RN MS CLOSING NOTES PATIENT IN BED AWAKE, ALERT AND ORIENTED X1, EYES OPEN, ON 3 L VIA NASAL SP02 98%, RESPIRATIONS EVEN AND UNLABORED WITH EQUAL RISE AND FALL OF CHEST, NO SOB PRESENT, ON ACUTE MEDICAL RESTRAINTS SOFT BILATERAL WRIST, SKIN ASSESSED, CIRCULATION PRESENT, PULSES PALPABLE, SKIN WNL. LANG CATHETER INTACT AND DRAINING URINE YELLOW, HEAD OF ELEVATED FOR ASPIRATION PRECAUTIONS, GTUBE INTACT AND PATENT, NO RESIDUALS PRESENT, TOLERATING FEEDING WELL, IV SITE TO LEFT HAND, #20G INTACT AND PATENT IVF RUNNING ORDERED, HEELS OFFLOADED AND INTACT, CALL LIGHT KEPT WITHIN REACH, WOUND CARE PROVIDED AND TOLERATED WELL, REPOSITIONED, ALL NEEDS ATTENDED AT THIS TIME ,REMAINS COMFORTABLE, WILL CONTINUE TO MONITOR AND ENDORSE TO NEXT SHIFT, APPEARS TO BE FREE OF ANY PAIN OR DISCOMFORT. ORAL CARE PROVIDED.
[2018-07-31 07:10] LABS: BASOPHILS # (AUTO) 0.1 /CMM (0.0-0.2); BASOPHILS % (AUTO) 1.4 % (0.0-2.0); EOSINOPHILS % (AUTO) 3.6 % (0.0-6.0); HEMATOCRIT 34 % (33-45); LYMPHOCYTES # (AUTO) 1.5 /CMM (0.8-4.8); LYMPHOCYTES % (AUTO) 16.9 % (20.0-44.0); MEAN CORPUSCULAR HGB CONC 33 g/dl (31.0-36.0); MEAN CORPUSCULAR VOLUME 79 fL (82-100); MONOCYTES # (AUTO) 0.9 /CMM (0.1-1.30); MONOCYTES % (AUTO) 10.7 % (2.0-12.0); NEUTROPHILS # (AUTO) 5.9 /CMM (1.8-8.9); NEUTROPHILS % (AUTO) 67.4 % (43.0-81.0); PLATELET COUNT (AUTO) 337 /CMM (150-450); RED BLOOD CELL COUNT(AUTO) 4.22 MIL/uL (4.0-5.2); WHITE BLOOD COUNT (AUTO) 8.8 K/uL (4.3-11.0)
--- NOTE | 2018-07-31 07:15 | NUR ---
RN MS INITIAL NOTES PATIENT IN BED AWAKE, ALERT AND ORIENTED X1, EYES OPEN, ON 3L VIA NC SP02 92%, INCREASED NC TO 5L, WILL CONT TO MONITOR. RR EVEN AND UNLABORED WITH EQUAL RISE AND FALL OF CHEST, NO SOB PRESENT, ON ACUTE MEDICAL RESTRAINTS SOFT BILATERAL WRIST, SKIN ASSESSED, CIRCULATION PRESENT, PULSES PALPABLE, SKIN WNL. LANG CATHETER INTACT AND DRAINING URINE YELLOW, HEAD OF ELEVATED FOR ASPIRATION PRECAUTIONS, GTUBE INTACT AND PATENT, NO RESIDUALS PRESENT, TOLERATING FEEDING WELL, IV SITE TO LEFT HAND, #20G INTACT AND PATENT IVF RUNNING ORDERED, WILL KEEP HEELS OFFLOADED, CALL LIGHT KEPT WITHIN REACH, WOUND CARE WILL BE PROVIDED AND TOLERATED WELL, WILL REPOSITION Q2HR, ALL NEEDS WILL BE ATTENDED, WILL CONTINUE TO MONITOR PATIENT.
[2018-07-31 07:16] LABS: ALANINE AMINOTRANSFERASE 16 U/L (12-78); ALKALINE PHOSPHATASE 83 U/L (46-116); ASPARTATE AMINOTRANSFERASE 18 U/L (15-37); BILIRUBIN,TOTAL 0.3 mg/dL (0.2-1.0); CALCIUM, SERUM 9.2 mg/dL (8.5-10.1); CARBON DIOXIDE 24 mmol/L (21-32); CHLORIDE 106 mmol/L (98-107); CREATININE 0.7 mg/dL (0.6-1.3); GLUCOSE 122 mg/dL (74-106); POTASSIUM 4.6 mmol/L (3.5-5.1); SODIUM SERUM 141 mmol/L (136-145); TOTAL PROTEIN, SERUM 7.6 g/dL (6.4-8.2); UREA NITROGEN, BLOOD 37 mg/dL (7-18)
[2018-07-31 07:23] LABS: VALPROIC ACID 14 ug/mL (50-100)
[2018-07-31 08:00] VITALS: BP 145/52
[2018-07-31] MEDS: risperiDONE 0.25 MG TABLET PO SCH ×3 (08:24→17:43)
[2018-07-31] MEDS: LEVOTHYROXINE SODIUM 50 MCG TABLET GT SCH (08:25)
[2018-07-31] MEDS: MULTIVIT W/MINERALS 1 TAB TABLET GT SCH (08:48)
[2018-07-31] MEDS: FERROUS SULFATE UDC 300 MG/5 ML UDC GT SCH (08:48)
[2018-07-31] MEDS: VALPROIC ACID 250 MG/5 ML UDC GT SCH ×3 (08:48→21:27)
[2018-07-31] MEDS: PANTOPRAZOLE 40 MG/PACK PACK GT SCH (08:48)
[2018-07-31] MEDS: AMLODIPINE BESYLATE 5 MG TABLET GT SCH ×2 (08:49→17:43)
[2018-07-31] MEDS: LACTOBACILLUS RHAMNOSUS GG 1 EACH CAP.SPRINK GT SCH ×2 (08:49→17:43)
[2018-07-31] MEDS: LOSARTAN POTASSIUM 25 MG TABLET PO SCH (08:49)
[2018-07-31] MEDS: BENZTROPINE MESYLATE (1 MG) 1 MG TABLET PO SCH ×2 (08:50→17:43)
[2018-07-31] MEDS: ASPIRIN 81 MG TAB.CHEW GT SCH (08:50)
[2018-07-31] MEDS: ASCORBIC ACID 500 MG TABLET GT SCH ×2 (08:50→17:43)
[2018-07-31] MEDS: FAMOTIDINE (20 MG) 20 MG TABLET GT SCH (08:51)
[2018-07-31] MEDS: ENOXAPARIN SODIUM 60 MG/0.6 ML DISP.SYRIN SQ SCH (08:53)
[2018-07-31] MEDS: PROSOURCE / PROSTAT (PYXIS) 30 ML UDC GT SCH (08:54)
[2018-07-31] MEDS: NYSTATIN CREAM 15 GM TUBE TP SCH ×2 (09:13→17:44)
[2018-07-31 16:00] VITALS: BP 126/43
--- NOTE | 2018-07-31 19:10 | NUR ---
RN MS CLOSING NOTES PATIENT ALERT AND ORIENTED X1, EYES OPEN, ON 5L VIA NC SP02 93%, RR EVEN AND UNLABORED WITH EQUAL RISE AND FALL OF CHEST, NO SOB PRESENT, ON ACUTE MEDICAL RESTRAINTS SOFT BILATERAL WRIST, SKIN ASSESSED, CIRCULATION PRESENT, PULSES PALPABLE, SKIN WNL. LANG CATHETER INTACT AND DRAINING URINE YELLOW, HEAD OF ELEVATED FOR ASPIRATION PRECAUTIONS, GTUBE INTACT AND PATENT, NO RESIDUALS PRESENT, TOLERATING FEEDING WELL, IV SITE TO RIGHT UPPER ARM 22G INTACT AND PATENT IVF RUNNING ORDERED, KEPT HEELS OFFLOADED, CALL LIGHT KEPT WITHIN REACH, WOUND CARE PROVIDED AND TOLERATED WELL, REPOSITIONED Q2HR, ALL NEEDS AND MD ORDERS ATTENDED, ENDORSED TO DAMPENER NURSE FOR ARNOL.
[2018-07-31 20:00] VITALS: BP 151/45
[2018-07-31] MEDS: OLANZAPINE 2.5 MG TABLET GT SCH (21:28)
[2018-07-31] MEDS: SENNOSIDES 8.6 MG TABLET GT SCH (21:28)
[2018-08-01 04:00] VITALS: BP 138/45
[2018-08-01] MEDS: HYDROCODONE/APAP 5/325MG 1 EACH TABLET GT PRN ×2 (05:32→11:37)
--- NOTE | 2018-08-01 06:00 | NUR ---
pt resting and calm overnight until this morning, pt became agitated, restless, medicated with norco but no effect , no changes with mood , tried zyprexia prn , will continue to monitor.no acute distress, kept on nasal cannula, restraint
[2018-08-01 06:21] VITALS: BP 138/45
[2018-08-01 06:35] LABS: BASOPHILS # (AUTO) 0.1 /CMM (0.0-0.2); BASOPHILS % (AUTO) 0.9 % (0.0-2.0); EOSINOPHILS % (AUTO) 2.6 % (0.0-6.0); HEMATOCRIT 33 % (33-45); HEMOGLOBIN 10.5 g/dL (11.5-14.8); LYMPHOCYTES % (AUTO) 12.9 % (20.0-44.0); MEAN CORPUSCULAR HGB CONC 32 g/dl (31.0-36.0); MEAN CORPUSCULAR VOLUME 80 fL (82-100); MONOCYTES # (AUTO) 0.7 /CMM (0.1-1.30); MONOCYTES % (AUTO) 9.9 % (2.0-12.0); NEUTROPHILS # (AUTO) 5.5 /CMM (1.8-8.9); NEUTROPHILS % (AUTO) 73.7 % (43.0-81.0); PLATELET COUNT (AUTO) 280 /CMM (150-450); RED BLOOD CELL COUNT(AUTO) 4.09 MIL/uL (4.0-5.2); WHITE BLOOD COUNT (AUTO) 7.4 K/uL (4.3-11.0)
[2018-08-01] MEDS: OLANZAPINE 2.5 MG TABLET GT PRN (06:45)
[2018-08-01] MEDS: LEVOTHYROXINE SODIUM 50 MCG TABLET GT SCH (06:45)
[2018-08-01 06:54] LABS: CALCIUM, SERUM 8.9 mg/dL (8.5-10.1); CARBON DIOXIDE 26 mmol/L (21-32); CHLORIDE 106 mmol/L (98-107); CREATININE 0.7 mg/dL (0.6-1.3); GLUCOSE 119 mg/dL (74-106); POTASSIUM 4.2 mmol/L (3.5-5.1); SODIUM SERUM 140 mmol/L (136-145); UREA NITROGEN, BLOOD 33 mg/dL (7-18)
--- NOTE | 2018-08-01 07:00 | NUR ---
MS RN INITIAL NOTES RECEIVED PT IN BED, AWAKE, AGITATED/RESTLESS PULLING AT SHEETS AND PULLED OUT IV. LABORED BREATHING WITH O2 SAT WNL ON 5L NC. MOUTH NOTED WITH DRIED/CRUSTY SECRETIONS. ISOLATION PRECUATIONS FOR MRSA NARES. F/C DRAINING CLOUDY YELLOW URINE. JEVITY FEEDING RUNNING AT 50 ML/HR. NO RESIDUAL NOTED. RIGHT HAND IV IN PLACE; PATENT/FLUSHED. SOFT RESTRAINTS BILATERAL WRIST. IV FLUIDS INFUSING AT 75ML/HR. BED IN LOCKED/LOWEST POSITION. CALL LIGHT IN REACH. WILL CONT TO MONITOR.
[2018-08-01 08:00] VITALS: BP 136/57
[2018-08-01] MEDS: IV NS 0.9% 1,000 ML IV PRN ×2 (08:03→21:29)
[2018-08-01] MEDS: PROSOURCE / PROSTAT (PYXIS) 30 ML UDC GT SCH (08:26)
[2018-08-01] MEDS: VALPROIC ACID 250 MG/5 ML UDC GT SCH ×3 (08:26→20:39)
[2018-08-01] MEDS: PANTOPRAZOLE 40 MG/PACK PACK GT SCH (08:27)
[2018-08-01] MEDS: LACTOBACILLUS RHAMNOSUS GG 1 EACH CAP.SPRINK GT SCH ×2 (08:27→16:51)
[2018-08-01] MEDS: OLANZAPINE 2.5 MG TABLET GT SCH ×2 (08:27→20:39)
[2018-08-01] MEDS: ENOXAPARIN SODIUM 60 MG/0.6 ML DISP.SYRIN SQ SCH (08:27)
[2018-08-01] MEDS: FERROUS SULFATE UDC 300 MG/5 ML UDC GT SCH (08:27)
[2018-08-01] MEDS: MULTIVIT W/MINERALS 1 TAB TABLET GT SCH (08:28)
[2018-08-01] MEDS: AMLODIPINE BESYLATE 5 MG TABLET GT SCH ×2 (08:28→16:51)
[2018-08-01] MEDS: FAMOTIDINE (20 MG) 20 MG TABLET GT SCH (08:29)
[2018-08-01] MEDS: ASCORBIC ACID 500 MG TABLET GT SCH ×2 (08:29→16:51)
[2018-08-01] MEDS: LOSARTAN POTASSIUM 25 MG TABLET PO SCH (08:29)
[2018-08-01] MEDS: ASPIRIN 81 MG TAB.CHEW GT SCH (08:29)
[2018-08-01] MEDS: NYSTATIN CREAM 15 GM TUBE TP SCH ×2 (08:49→16:52)
--- NOTE | 2018-08-01 11:00 | NUR ---
MS RN NOTES PER HARMEET, ASSOCIATE PROFESSOR OF FORESTRY, TRY TO WEAN PATIENT DOWN TO 3L NC FOR DISCHARGE.
--- NOTE | 2018-08-01 11:15 | NUR ---
MS RN NOTES PT DOES NOT TOLERATE O2 AT 3LPM NC. PT AGITATED/RESTLESS DESAT TO 88-89 WITH LABORED BREATHING. PUT ON NON REBREATHER AND THEN DOWN TO SIMPLE MASK AT 8LPM. NEHAL RT AT BEDSIDE. CHARGE NURSE SOON AWARE. NASOPHARYNGEAL SUCTION PROVIDED WITH THICK/BLOODY/YELLOW SECRETIONS. WILL CONT TO MONITOR.
[2018-08-01 16:00] VITALS: BP_SYST 129; BP_DIAS 45; BP_DIAS 55
--- NOTE | 2018-08-01 19:30 | NUR ---
RN NOTE; RECEIVED PT IN BED AWAKE SLEEPING. , BREATHING EVENLY. NO SOB. ON O2 AT 8LPM VIA SIMPLE MASK NIKI WELL NO COUGH NOTED AT THIS TIME.NO S/S OF PAIN OR DISCOMFORT, GTF NIKI WELL .HOB ELEVATED. F/C IN PLACE DRAINING CLEAR YELLOW URINE. BILATERAL SOFT WRIST RESTRAINT IN PLACE W/ NO COMPLICATIONS. NO SKIN BREAK DOWN. NEEDS ATTENDED. BED LOW LOCKED. CALL LIGHT WITHIN REACH. WILL CONT TO MONITOR.
--- NOTE | 2018-08-01 19:36 | NUR ---
MS RN END OF SHIFT NOTES PT RESTING IN BED, ON 8L SIMPLE MASK WITH NON LABORED BREATHING. ENDORSED TO PM NURSE FOR ARNOL. BED IN LOCKED/LOWEST POSITION. CALL LIGHT IN REACH.
[2018-08-01 20:00] VITALS: BP 140/56
[2018-08-01] MEDS: SENNOSIDES 8.6 MG TABLET GT SCH (21:13)
[2018-08-01] MEDS: JEVITY 1.2 CAL 1,000 ML BOTTLE GT PRN (23:18)
[2018-08-02] VITALS (25 sets, daily range): BP systolic 110–187; BP diastolic 32–83
--- NOTE | 2018-08-02 02:00 | NUR ---
PT IN BED SLEEPING . AROUSE EASILY. BREATHING EVENLY. NO SOB. NAD . NO S/S OF DISCOMFORT . WILL CONT TO MONITOR ,
--- NOTE | 2018-08-02 05:08 | NUR ---
PT IN BED W/ NAD. ON CONTINUOUS MONITORING FOR O2 SAT, SAFETY AND EPISODE OF AGITATION. WILL CONT TO MONITOR ,
[2018-08-02 06:25] LABS: BASOPHILS % (AUTO) 0.4 % (0.0-2.0); EOSINOPHILS % (AUTO) 0.7 % (0.0-6.0); HEMATOCRIT 34 % (33-45); LYMPHOCYTES # (AUTO) 0.8 /CMM (0.8-4.8); LYMPHOCYTES % (AUTO) 8.7 % (20.0-44.0); MEAN CORPUSCULAR HGB CONC 32 g/dl (31.0-36.0); MEAN CORPUSCULAR VOLUME 80 fL (82-100); MONOCYTES # (AUTO) 0.7 /CMM (0.1-1.30); MONOCYTES % (AUTO) 7.2 % (2.0-12.0); NEUTROPHILS # (AUTO) 8.1 /CMM (1.8-8.9); PLATELET COUNT (AUTO) 331 /CMM (150-450); RED BLOOD CELL COUNT(AUTO) 4.27 MIL/uL (4.0-5.2); WHITE BLOOD COUNT (AUTO) 9.7 K/uL (4.3-11.0)
--- NOTE | 2018-08-02 06:28 | NUR ---
PT IN BED SLEEPING. BREATHING EVENLY. ON O2 AT 10LPM VIA SIMPLE MASK. TOLERATED WELL. NO ACUTE EVENT DURING THE NIGHT. DEEP SUCTIONING WAS DONE A FEW TIMES DURING THE SHIFT TO KEEP THE O2 SAT >93%. KEPT THE HOB ELEVATED. ON CONTINUOUS O2 SAT AND HR MONITOR AT THE BED SIDE. KEPT PT CLEAN AND DRY. F/C IN PLACE DRAINING CLEAN YELLOW URINE. REPOSITIONED ROUTINELY. GOOD SKIN CARE RENDERED. WITH EPISODE OF SLIGHT AGITATION WHICH LEADED TO DROP IN O2 SAT BUT NO MAJOR ANXIETY EPISODE. GTF TOLERATED WELL WITH HOB ELEVATED, WILL CONT TO MONITOR AND WILL ENDORSE TO AM SHIFT FOR ARNOL.
[2018-08-02 06:49] LABS: CALCIUM, SERUM 8.9 mg/dL (8.5-10.1); CARBON DIOXIDE 28 mmol/L (21-32); CHLORIDE 105 mmol/L (98-107); CREATININE 0.7 mg/dL (0.6-1.3); GLUCOSE 155 mg/dL (74-106); POTASSIUM 4.4 mmol/L (3.5-5.1); SODIUM SERUM 141 mmol/L (136-145); UREA NITROGEN, BLOOD 33 mg/dL (7-18)
--- NOTE | 2018-08-02 07:00 | NUR ---
MS RN OPENING NOTES RECEIVED PT IN BED, ASLEEP BUT AROUSABLE ON 8L SIMPLE MASK. EVEN NON LABORED BREATHING NOTED. JEVITY RUNNING AT GOAL RATE. BILAT SOFT WRIST RESTRAINTS ON. NS RUNNING AT 75ML/HR VIA RFA #22. F/C IN PLACE DRAINING YELLOW URINE. WILL REASSESS MENTAL STATUS WHEN MORE AWAKE. ON ISOLATION PRECAUTIONS. BED IN LOCKED/LOWEST POSITION. CALL LIGHT IN REACH. WILL CONT TO MONITOR.
[2018-08-02] MEDS: FERROUS SULFATE UDC 300 MG/5 ML UDC GT SCH (08:19)
[2018-08-02] MEDS: VALPROIC ACID 250 MG/5 ML UDC GT SCH ×3 (08:19→19:57)
[2018-08-02] MEDS: FAMOTIDINE (20 MG) 20 MG TABLET GT SCH (08:19)
[2018-08-02] MEDS: LOSARTAN POTASSIUM 25 MG TABLET PO SCH (08:20)
[2018-08-02] MEDS: OLANZAPINE 2.5 MG TABLET GT SCH ×2 (08:20→19:58)
[2018-08-02] MEDS: ASPIRIN 81 MG TAB.CHEW GT SCH (08:20)
[2018-08-02] MEDS: ASCORBIC ACID 500 MG TABLET GT SCH ×2 (08:20→16:30)
[2018-08-02] MEDS: AMLODIPINE BESYLATE 5 MG TABLET GT SCH ×2 (08:20→16:30)
[2018-08-02] MEDS: PANTOPRAZOLE 40 MG/PACK PACK GT SCH (08:20)
[2018-08-02] MEDS: MULTIVIT W/MINERALS 1 TAB TABLET GT SCH (08:20)
[2018-08-02] MEDS: LEVOTHYROXINE SODIUM 50 MCG TABLET GT SCH (08:21)
[2018-08-02] MEDS: LACTOBACILLUS RHAMNOSUS GG 1 EACH CAP.SPRINK GT SCH ×2 (08:21→16:30)
[2018-08-02] MEDS: ENOXAPARIN SODIUM 60 MG/0.6 ML DISP.SYRIN SQ SCH (08:24)
[2018-08-02] MEDS: NYSTATIN CREAM 15 GM TUBE TP SCH ×2 (08:42→16:30)
[2018-08-02] MEDS: PROSOURCE / PROSTAT (PYXIS) 30 ML UDC GT SCH (09:13)
--- NOTE | 2018-08-02 09:30 | NUR ---
MS RN NOTES PT'S BREATHING LABORED AND PUT ON COOL AEROSOL MASK BY RT AND SUCTIONED. O2 SAT 100% DR DELEON ORDERED ABG AND FOR PT TO BE TRANSPORTED TO ICU STAT. TRANSPORTED ON NON REBREATHER WITHOUT INCIDENT; ACCOMPANIED BY NURSING SLOTTER OPERATOR HELPER, CHRISTINE CHARGE NURSE, MYSELF AND ALLA LOCKE. REPORTED TO PATIENT RELATIONS LIAISON AND ENDORSED TO ARNOL.
[2018-08-02 09:53] LABS: ABG BASE EXCESS -1.7 mmol/L; ABG OXYGEN SATURATION 97.2 % (92.0-98.5); ABG PCO2 66.1 mmHg (35.0-45.0); ABG PH 7.229 (7.350-7.450); ABG PO2 109.6 mmHg (75.0-100.0); AaDO2 245.5 mmHg; COHb 0.5 % (0.5-1.5); MetHb 0.6 % (0.0-1.5); O2Hb 96.1 % (94.0-97.0); SITE, ABG Right Radial; VENT MODE, BG COOL AEROSOL MASK 60%
--- NOTE | 2018-08-02 10:05 | NUR ---
RN NOTES RECEIVED PT FROM LALA. PT LETHARGIC. MOVES TO PAIN. ON NON-REBREATHER. ABG DONE. DR DELEON AWARE OF RESULT. PT PLACED ON BIPAP. HOB ELEVATED. PT CONNECTED TO MONITOR, SINUS BRADYCARDIA. GT CLAMPED. FC IN PLACE. NO HEMATURIA NOTED. BLE ELEVATED. WILL RECHECK ABG IN 1 HR. WILL CLOSELY MONITOR.
--- NOTE | 2018-08-02 10:05 | NUR ---
RT Pt nasotracheal sx'd and placed on cool aerosol mask 60% @ 10lpm. Pt had increased WOB, ABG was done and results given to Dr. Ruano. Pt started BiPAP with noted settings in ICU due to ABG results. Mepilex is in place on bridge of nose for skin protection. BiPAP alarms are set and audible with BVM by bedside. BiPAP is plugged into red outlet. Pt appears to be tolerating BiPAP at this time. Addendum: 08/02/18 at 1141 by SHAGUFTA ORTEGA RT Amended: Links added.
--- NOTE | 2018-08-02 10:50 | NUR ---
RN NOTES DR DELEON IN THE UNIT. UPDATED WITH PT'S CONDITION. PT LETHARGIC, MOVES TO PAIN. PT ON BIPAP. HOB ELEVATED. WILL RECHECK ABG IN 1 HR. WILL NOTIFY MD REGARDING RESULT. WILL CLOSELY MONITOR
--- NOTE | 2018-08-02 11:05 | NUR ---
RN NOTES DR DELEON AWARE OF LATEST ABG RESULT. NO ORDER MADE. WILL KEEP PT ON BIPAP. WILL CONTINUE TO MONITOR
[2018-08-02 11:44] LABS: ABG BASE EXCESS -1.2 mmol/L; ABG OXYGEN SATURATION 98.1 % (92.0-98.5); ABG PCO2 36.1 mmHg (35.0-45.0); ABG PH 7.421 (7.350-7.450); ABG PO2 118.1 mmHg (75.0-100.0); AaDO2 197.8 mmHg; COHb 0.1 % (0.5-1.5); MetHb 0.5 % (0.0-1.5); O2Hb 97.5 % (94.0-97.0); SITE, ABG Right Radial
[2018-08-02] MEDS: IV NS 0.9% 1,000 ML IV PRN (13:09)
[2018-08-02] MEDS: JEVITY 1.2 CAL 1,000 ML BOTTLE GT PRN (16:30)
--- NOTE | 2018-08-02 18:32 | NUR ---
RN CLOSING NOTES NO SIGNIFICANT CHANGE NOTED. PT REMAINS ON BIPAP. NO SOB NOTED. KEPT HOB ELEVATED. TX PROVIDED ORDERED. KEPT CLEAN AND DRY. REPOSITIONED Q2. BLE ELEVATED. KEPT COMFORTABLE. WILL ENDORSE FOR CONTINUITY OF CARE
--- NOTE | 2018-08-02 19:00 | NUR ---
PROTOTYPE ENGINEER NOTES Received patient ,lethargic,responds to pain,not following commands,withdraws and slightly moves both arms ,withdraws lower extremities to pain.On BIPAP (15/5,R=14,Fio2 = 50 %).Not in nay distress,breathing deep but non labored. Midline on REEMA ,intact .PEG tube with on going feeding,Aspiration Precaution observed.Comfort care done.
--- NOTE | 2018-08-02 20:22 | NUR ---
RECEIVED PT ON BIPAP ON NOTED SETTINGS, NO RESP DISTRESS. TOLERATING SETTINGS. MEPILEX IN PLACE, SKIN INTACT. BIPAP ALARMS SET AND AUDIBLE. AMBU BAG AT BEDSIDE. WILL CONTINUE TO MONITOR. Addendum: 08/02/18 at 2023 by JEANNETTE GAMEZ RT Amended: Links added.
[2018-08-02] MEDS: SENNOSIDES 8.6 MG TABLET GT SCH (21:23)
[2018-08-03] VITALS (36 sets, daily range): BP systolic 118–182; BP diastolic 41–120
--- NOTE | 2018-08-03 | NUR ---
Remains stable,not in any acute distress,still on BIPAP,tolerating well.Remains lethargic,arousable.
--- NOTE | 2018-08-03 04:00 | NUR ---
STATUS UNCHANGED,STABLE ON BIPAP ,REMAINS LETHARGIC,RESPONDS TO PAIN BUT EASILY FAALS BACK TO SLEEP. NOT IN NAY DISTRESS.AM BATH DONE. 0600 NOTED HR IN THE 70'S-80'S AND BP IN THE 150'S-160'S SYSTOLIC .PRN MED (APRESOLINE) GIVEN.WILL CLOSELY MONITOR .
[2018-08-03 04:12] LABS: BASOPHILS # (AUTO) 0.1 /CMM (0.0-0.2); BASOPHILS % (AUTO) 0.9 % (0.0-2.0); EOSINOPHILS % (AUTO) 0.8 % (0.0-6.0); HEMATOCRIT 29 % (33-45); HEMOGLOBIN 9.4 g/dL (11.5-14.8); LYMPHOCYTES # (AUTO) 0.7 /CMM (0.8-4.8); LYMPHOCYTES % (AUTO) 8.6 % (20.0-44.0); MEAN CORPUSCULAR HGB CONC 32 g/dl (31.0-36.0); MEAN CORPUSCULAR VOLUME 81 fL (82-100); MONOCYTES # (AUTO) 0.8 /CMM (0.1-1.30); MONOCYTES % (AUTO) 9.1 % (2.0-12.0); NEUTROPHILS # (AUTO) 6.8 /CMM (1.8-8.9); NEUTROPHILS % (AUTO) 80.6 % (43.0-81.0); PLATELET COUNT (AUTO) 277 /CMM (150-450); WHITE BLOOD COUNT (AUTO) 8.5 K/uL (4.3-11.0)
[2018-08-03 04:31] LABS: CALCIUM, SERUM 8.6 mg/dL (8.5-10.1); CARBON DIOXIDE 31 mmol/L (21-32); CHLORIDE 106 mmol/L (98-107); CREATININE 0.7 mg/dL (0.6-1.3); GLUCOSE 98 mg/dL (74-106); MAGNESIUM 1.8 mg/dL (1.8-2.4); PHOSPHORUS 2.9 mg/dL (2.5-4.9); POTASSIUM 4.4 mmol/L (3.5-5.1); SODIUM SERUM 142 mmol/L (136-145); UREA NITROGEN, BLOOD 31 mg/dL (7-18)
[2018-08-03] MEDS: hydrALAZINE HCL IV 20 MG VIAL IV PRN ×2 (06:10→13:47)
--- NOTE | 2018-08-03 07:00 | NUR ---
REPORT GIVEN TO MICHELE HUERTA.
--- NOTE | 2018-08-03 07:30 | NUR ---
RN NOTES RECEIVED PATIENT IN BED ON BIPAP WITH BREATHING NORMAL, EVEN AND UNLABORED. NO SOB NOTED. NO ACUTE DISTRESS NOTED. TELE MONITOR REVEALS SR, HR=78. IV REEMA MIDLINE IS PATENT AND INTACT. ON GTF PER ORDER. POSITIVE PLACEMENT. NO RESIDUAL NOTED. BOWEL SOUND PRESENT. PULSES PRESENT. F/C IS PATENT AND INTACT, DRAINING WITH GRAVITY. KEPT CLEAN, DRY AND COMFORTABLE. ALL NEEDS ATTENDED. SAFETY MEASURE OBSERVED. CALL LIGHT WITH IN REACH. WILL CONT TO MONITOR.
[2018-08-03] MEDS: ACETAMINOPHEN 325 MG TABLET PO PRN ×2 (08:05→14:44)
[2018-08-03] MEDS: ASPIRIN 81 MG TAB.CHEW GT SCH (08:05)
[2018-08-03] MEDS: FAMOTIDINE (20 MG) 20 MG TABLET GT SCH (08:05)
[2018-08-03] MEDS: MULTIVIT W/MINERALS 1 TAB TABLET GT SCH (08:05)
[2018-08-03] MEDS: PANTOPRAZOLE 40 MG/PACK PACK GT SCH (08:06)
[2018-08-03] MEDS: VALPROIC ACID 250 MG/5 ML UDC GT SCH ×3 (08:06→19:49)
[2018-08-03] MEDS: LOSARTAN POTASSIUM 25 MG TABLET PO SCH (08:06)
[2018-08-03] MEDS: FERROUS SULFATE UDC 300 MG/5 ML UDC GT SCH (08:06)
[2018-08-03] MEDS: ASCORBIC ACID 500 MG TABLET GT SCH ×2 (08:06→16:42)
[2018-08-03] MEDS: LEVOTHYROXINE SODIUM 50 MCG TABLET GT SCH (08:07)
[2018-08-03] MEDS: AMLODIPINE BESYLATE 5 MG TABLET GT SCH ×2 (08:07→16:42)
[2018-08-03] MEDS: LACTOBACILLUS RHAMNOSUS GG 1 EACH CAP.SPRINK GT SCH ×2 (08:07→16:42)
[2018-08-03] MEDS: OLANZAPINE 2.5 MG TABLET GT SCH ×2 (08:08→19:49)
[2018-08-03] MEDS: ENOXAPARIN SODIUM 60 MG/0.6 ML DISP.SYRIN SQ SCH (08:08)
[2018-08-03] MEDS: NYSTATIN CREAM 15 GM TUBE TP SCH ×2 (08:09→16:43)
[2018-08-03] MEDS: PROSOURCE / PROSTAT (PYXIS) 30 ML UDC GT SCH (08:10)
[2018-08-03 10:30] LABS: ABG BASE EXCESS 5.9 mmol/L; ABG OXYGEN SATURATION 97.9 % (92.0-98.5); ABG PCO2 41.1 mmHg (35.0-45.0); ABG PO2 115.9 mmHg (75.0-100.0); MetHb 0.7 % (0.0-1.5); O2Hb 97.2 % (94.0-97.0); SITE, ABG Right Radial
[2018-08-03] MEDS ORDERED: CEFEPIME 1 GM VIAL IM SCH (11:00)
[2018-08-03] MEDS: ACETYLCYSTEINE 10% SOLN 400 MG/4 ML VIAL NEB SCH ×3 (12:05→23:07)
[2018-08-03] MEDS: CEFEPIME 2 GM in IV D5W 100 ML IV SCH ×2 (12:23→22:25)
[2018-08-03] MEDS ORDERED: LOSARTAN POTASSIUM 50 MG TABLET PO ONE (16:00)
--- NOTE | 2018-08-03 18:48 | NUR ---
RN NOTES PATIENT ENDORSED TO NEXT SHIFT IN STABLE CONDITION FOR CONTINUITY OF CARE. NO SIGNIFICANT CHANGES NOTED. KEPT CLEAN, DRY AND COMFORTABLE. ALL NEEDS ATTENDED. SAFETY MEASURE OBSERVED. CALL LIGHT WITH IN REACH. WILL CONT TO MONITOR.
[2018-08-03] MEDS: SENNOSIDES 8.6 MG TABLET GT SCH (21:08)
[2018-08-04] VITALS (37 sets, daily range): BP systolic 96–159; BP diastolic 19–105
[2018-08-04] MEDS: OLANZAPINE 2.5 MG TABLET GT PRN ×2 (03:30→13:09)
[2018-08-04] MEDS: JEVITY 1.2 CAL 1,000 ML BOTTLE GT PRN (03:31)
[2018-08-04 04:49] LABS: BASOPHILS % (AUTO) 0.4 % (0.0-2.0); EOSINOPHILS % (AUTO) 1.7 % (0.0-6.0); HEMATOCRIT 30 % (33-45); HEMOGLOBIN 9.8 g/dL (11.5-14.8); LYMPHOCYTES # (AUTO) 0.6 /CMM (0.8-4.8); LYMPHOCYTES % (AUTO) 7.9 % (20.0-44.0); MEAN CORPUSCULAR HGB CONC 33 g/dl (31.0-36.0); MEAN CORPUSCULAR VOLUME 80 fL (82-100); MONOCYTES # (AUTO) 0.9 /CMM (0.1-1.30); MONOCYTES % (AUTO) 11.8 % (2.0-12.0); NEUTROPHILS % (AUTO) 78.2 % (43.0-81.0); PLATELET COUNT (AUTO) 291 /CMM (150-450); RED BLOOD CELL COUNT(AUTO) 3.72 MIL/uL (4.0-5.2); WHITE BLOOD COUNT (AUTO) 7.7 K/uL (4.3-11.0)
[2018-08-04 05:15] LABS: CALCIUM, SERUM 8.8 mg/dL (8.5-10.1); CARBON DIOXIDE 32 mmol/L (21-32); CHLORIDE 106 mmol/L (98-107); CREATININE 0.7 mg/dL (0.6-1.3); GLUCOSE 109 mg/dL (74-106); MAGNESIUM 1.7 mg/dL (1.8-2.4); PHOSPHORUS 2.7 mg/dL (2.5-4.9); POTASSIUM 4.1 mmol/L (3.5-5.1); SODIUM SERUM 143 mmol/L (136-145); UREA NITROGEN, BLOOD 27 mg/dL (7-18)
--- NOTE | 2018-08-04 07:00 | NUR ---
RN NOTES RECEIVED PATIENT ON BED, A/Ox1, ON 35% COOL AEROSOL, NO ACUTE DISTRESS NOTED. ON TELE SR HR IN 90'S, GEVITY AT 50CC/HR RUNNING VIA GT, NO RESIDUAL NOTED, REEMA MIDLINE SITE CLEAN, DRY AND INTACT, LANG DRAINING TO GRAVITY ,SR UP x3, CALL LIGHT WITHIN EASY REACH, BED LOCKED AND IN LOWEST POSITION, CONTINUE TO MONITOR.
[2018-08-04] MEDS: VALPROIC ACID 250 MG/5 ML UDC GT SCH ×3 (08:40→20:10)
[2018-08-04] MEDS: AMLODIPINE BESYLATE 5 MG TABLET GT SCH ×2 (08:41→16:10)
[2018-08-04] MEDS: FERROUS SULFATE UDC 300 MG/5 ML UDC GT SCH (08:41)
[2018-08-04] MEDS: PANTOPRAZOLE 40 MG/PACK PACK GT SCH (08:41)
[2018-08-04] MEDS: LOSARTAN POTASSIUM 25 MG TABLET PO SCH (08:41)
[2018-08-04] MEDS: ASCORBIC ACID 500 MG TABLET GT SCH ×2 (08:42→16:10)
[2018-08-04] MEDS: LEVOTHYROXINE SODIUM 50 MCG TABLET GT SCH (08:42)
[2018-08-04] MEDS: ASPIRIN 81 MG TAB.CHEW GT SCH (08:42)
[2018-08-04] MEDS: MULTIVIT W/MINERALS 1 TAB TABLET GT SCH (08:42)
[2018-08-04] MEDS: LACTOBACILLUS RHAMNOSUS GG 1 EACH CAP.SPRINK GT SCH ×2 (08:42→16:10)
[2018-08-04] MEDS: OLANZAPINE 2.5 MG TABLET GT SCH ×2 (08:42→20:10)
[2018-08-04] MEDS: NYSTATIN CREAM 15 GM TUBE TP SCH ×2 (08:43→16:11)
[2018-08-04] MEDS: ENOXAPARIN SODIUM 60 MG/0.6 ML DISP.SYRIN SQ SCH (08:43)
[2018-08-04] MEDS: FAMOTIDINE (20 MG) 20 MG TABLET GT SCH (08:44)
[2018-08-04] MEDS: PROSOURCE / PROSTAT (PYXIS) 30 ML UDC GT SCH (08:45)
[2018-08-04] MEDS: ACETYLCYSTEINE 10% SOLN 400 MG/4 ML VIAL NEB SCH ×3 (08:48→23:33)
--- NOTE | 2018-08-04 09:00 | NUR ---
RN NOTES COOL AEROSOL D/GUICHO, PT PLACE ON 4L O2 N/C, ABG IN ONE HOUR ORDERED PER DR DELEON ORDER .
--- NOTE | 2018-08-04 10:00 | NUR ---
RN NOTES DR DELEON NOTIFED REGARDING ABG RESULTS , O2 N/C DECREASED TO 3 L PER MD ORDER . O2 SAT 99% AT THIS TIME, CONTINUE TO MONITOR .
[2018-08-04 10:04] LABS: ABG BASE EXCESS 4.9 mmol/L; ABG OXYGEN SATURATION 96.6 % (92.0-98.5); ABG PCO2 38.1 mmHg (35.0-45.0); ABG PH 7.491 (7.350-7.450); ABG PO2 87.9 mmHg (75.0-100.0); AaDO2 124.6 mmHg; COHb 0.3 % (0.5-1.5); MetHb 0.6 % (0.0-1.5); O2Hb 95.7 % (94.0-97.0); SITE, ABG Right Radial; VENT MODE, BG NASAL CANNULA
[2018-08-04] MEDS: CEFEPIME 2 GM in IV D5W 100 ML IV SCH ×2 (11:07→22:18)
[2018-08-04] MEDS: Magnesium 1GM/D5W 100ML PREMIX 100 ML IV SCH ×2 (12:02→13:07)
[2018-08-04] MEDS: ACETAMINOPHEN 325 MG TABLET PO PRN (13:12)
--- NOTE | 2018-08-04 16:00 | NUR ---
RN NOTES PT RESTLESS AT TIMES , DR WILHELM AT THE BEDSIDE NOTIFED. CONTINUE TO MONITOR .
--- NOTE | 2018-08-04 18:16 | NUR ---
RN NOTES PT STABLE , ON 3 L O2 N/C , O2 SAT 100%.
--- NOTE | 2018-08-04 18:30 | NUR ---
RN NOTES REPORT GIVEN TO MARISELA RN FOR CONTINUITY OF CARE . PT TRANSFERRED TO ROOM 111-1 [facility] STATUS VIS ACLS PROTOCOL IN STABLE CONDITION .
--- NOTE | 2018-08-04 18:30 | NUR ---
[facility] RN NOTES RECEIVED REPORT FROM BRADLEY DEMPSEY IN ICU FOR ARNOL AND PT TRANSFERRED TO [facility] ROOM 111-1.ALERT/ORIENTED X1.ON 3L O2 VIA NC CONTINUOUSLY,SATURATING WELL.ON TELE, HR IS 60'S WITH SR.NO SOB AND ACUTE DISTRESS NOTED.LEFT UA MIDLINE AND RIGHT FA G22 IS PRESENT.IV SITE IS CLEAN,DRY AND INTACT.G TUBE IS IN PLACE WITH JEVITY @50ML/HR.MINIMAL GASTRIC RESIDUAL NOTED.SAFETY IS MAINTAINED AT ALL TIMES.CALL LIGHT IS WITHIN REACH.WILL CONTINUE TO MONITOR THE PT CLOSELY.
--- NOTE | 2018-08-04 18:55 | NUR ---
[facility] RN CLOSING NOTES PT IS LYING ON BED.NO SIGNIFICANT CHANGES NOTED.ENDORSED TO FIRST AID ATTENDANT RN DULCE FOR ARNOL
--- NOTE | 2018-08-04 20:00 | NUR ---
melvin rn notes received pts in bed awake and responsive a/ox1 on tele sr on the monitor , no sob no distress noted , v/s stable afebrile,hob elevated for aspiration precaution , with ivf of 0.45%ns at 75cc/hr well tolerated ,with gt feeding of jevity 1.2 at 50cc/hr well tolerated no residual noted , f/c intact and patent draining with yellowish urine output , bed is locked and in low position for safety ,all needs attended too call light within reach kept pts clean dry and comfortable , will continue to monitor pts. Addendum: 08/04/18 at 2147 by DULCE RUBIO RN melvin rn notes pts is not on ivf 0.45% at 75cc/hr , instead pts on florentino midline intact and patent.
--- NOTE | 2018-08-04 21:00 | NUR ---
enrike rn notes due meds given as ordered,will continue to monitor pts.
[2018-08-04] MEDS: SENNOSIDES 8.6 MG TABLET GT SCH (21:01)
[2018-08-05] VITALS (8 sets, daily range): BP systolic 111–153; BP diastolic 54–87
--- NOTE | 2018-08-05 | NUR ---
melvin rn notes pts in bed comfortable sleeping ,v/s stable afebrile no sob no distress noted ,remains on gt feeding well tolerated. iv atb given as ordered,will continue to monitor pts.
--- NOTE | 2018-08-05 06:08 | NUR ---
melvin rn notes pts remains in bed calm , remains on gt feeding well tolerated , no residual noted , no sob no distress noted on tele sb on the monitor , all needs attended too, call light within reach, kept pts clean dry and comfortable, will endorse to rn day shift for continuity of care,v/s stable afebrile.
[2018-08-05 06:11] LABS: CALCIUM, SERUM 8.7 mg/dL (8.5-10.1); CARBON DIOXIDE 33 mmol/L (21-32); CHLORIDE 107 mmol/L (98-107); CREATININE 0.6 mg/dL (0.6-1.3); GLUCOSE 124 mg/dL (74-106); MAGNESIUM 2.3 mg/dL (1.8-2.4); PHOSPHORUS 3.6 mg/dL (2.5-4.9); POTASSIUM 3.9 mmol/L (3.5-5.1); SODIUM SERUM 145 mmol/L (136-145); UREA NITROGEN, BLOOD 28 mg/dL (7-18)
[2018-08-05 06:19] LABS: BASOPHILS # (AUTO) 0.1 /CMM (0.0-0.2); BASOPHILS % (AUTO) 1.5 % (0.0-2.0); EOSINOPHILS % (AUTO) 2.4 % (0.0-6.0); HEMATOCRIT 29 % (33-45); HEMOGLOBIN 9.7 g/dL (11.5-14.8); LYMPHOCYTES # (AUTO) 0.7 /CMM (0.8-4.8); LYMPHOCYTES % (AUTO) 10.7 % (20.0-44.0); MEAN CORPUSCULAR HGB CONC 33 g/dl (31.0-36.0); MEAN CORPUSCULAR VOLUME 79 fL (82-100); MONOCYTES % (AUTO) 14.5 % (2.0-12.0); NEUTROPHILS # (AUTO) 4.7 /CMM (1.8-8.9); NEUTROPHILS % (AUTO) 70.9 % (43.0-81.0); PLATELET COUNT (AUTO) 261 /CMM (150-450); RED BLOOD CELL COUNT(AUTO) 3.69 MIL/uL (4.0-5.2); WHITE BLOOD COUNT (AUTO) 6.6 K/uL (4.3-11.0)
--- NOTE | 2018-08-05 07:05 | NUR ---
[facility] RN OPENING NOTES RECEIVED PT LYING ON BED.ALERT/ORIENTED X1,BEDBOUND.ON TELE HR IS 77 WITH SR.ON 3 L O2 VIA NC CONTINUOUSLY.NO SOB AND ACUTE DISTRESS NOTED.FC IS IN PLACE.G TUBE IS IN PLACE WITH JEVITY 1.2 @50ML/HR.MINIMAL GASTRIC RESIDUAL NOTED.IV LINE IS ON RIGHT FA G22 AND LEFT UA MIDLINE,SITE IS CLEAN DRY AND INTACT.NO INFILTRATION NOTED.SAFETY IS MAINTAINED AT ALL TIMES.BED IS IN LOW POSITION AND LOCKED,CALL LIGHT IS WITHIN REACH.WILL CONTINUE TO MONITOR THE PT CLOSELY.
[2018-08-05] MEDS: ACETYLCYSTEINE 10% SOLN 400 MG/4 ML VIAL NEB SCH ×3 (07:20→23:24)
[2018-08-05] MEDS: LEVOTHYROXINE SODIUM 50 MCG TABLET GT SCH (08:11)
[2018-08-05] MEDS: LACTOBACILLUS RHAMNOSUS GG 1 EACH CAP.SPRINK GT SCH ×2 (08:12→16:46)
[2018-08-05] MEDS: FAMOTIDINE (20 MG) 20 MG TABLET GT SCH (08:12)
[2018-08-05] MEDS: OLANZAPINE 2.5 MG TABLET GT SCH ×2 (08:12→21:52)
[2018-08-05] MEDS: FERROUS SULFATE UDC 300 MG/5 ML UDC GT SCH (08:12)
[2018-08-05] MEDS: VALPROIC ACID 250 MG/5 ML UDC GT SCH ×3 (08:12→21:52)
[2018-08-05] MEDS: ASPIRIN 81 MG TAB.CHEW GT SCH (08:12)
[2018-08-05] MEDS: MULTIVIT W/MINERALS 1 TAB TABLET GT SCH (08:12)
[2018-08-05] MEDS: ASCORBIC ACID 500 MG TABLET GT SCH ×2 (08:12→16:46)
[2018-08-05] MEDS: PANTOPRAZOLE 40 MG/PACK PACK GT SCH (08:12)
[2018-08-05] MEDS: AMLODIPINE BESYLATE 5 MG TABLET GT SCH ×2 (08:13→16:46)
[2018-08-05] MEDS: LOSARTAN POTASSIUM 25 MG TABLET PO SCH (08:13)
[2018-08-05] MEDS: ENOXAPARIN SODIUM 60 MG/0.6 ML DISP.SYRIN SQ SCH (08:17)
[2018-08-05] MEDS: PROSOURCE / PROSTAT (PYXIS) 30 ML UDC GT SCH (08:21)
[2018-08-05] MEDS: NYSTATIN CREAM 15 GM TUBE TP SCH ×2 (08:31→16:49)
[2018-08-05] MEDS: CEFEPIME 2 GM in IV D5W 100 ML IV SCH ×2 (10:01→22:05)
[2018-08-05] MEDS: JEVITY 1.2 CAL 1,000 ML BOTTLE GT PRN (15:10)
--- NOTE | 2018-08-05 15:59 | NUR ---
[facility] RN NOTES PER HEDDLE MACHINE OPERATOR [facility] AND MADE AWARE.
--- NOTE | 2018-08-05 18:51 | NUR ---
[facility] RN CLOSING NOTE PT IS LYING ON BED WITH SOME RESTLESSNESS.ALERT/ORIENTED X1,BEDBOUND.ON TELE HR IS 78 WITH SR.ON 3 L O2 VIA NC CONTINUOUSLY.NO SOB AND ACUTE DISTRESS NOTED.FC IS IN PLACE.G TUBE IS IN PLACE WITH JEVITY 1.2 @50ML/HR.MINIMAL GASTRIC RESIDUAL NOTED.IV LINE IS ON RIGHT FA G22 AND LEFT UA MIDLINE,SITE IS CLEAN DRY AND INTACT.NO INFILTRATION NOTED.ALL THE DUE MEDS ARE GIVEN.NO SIGNIFICANT CHANGES NOTED IN THE SHIFT.ENDORSED TO FIRE SPRINKLER APPARATUS INSPECTOR RN FOR ARNOL.
[2018-08-05] MEDS: SENNOSIDES 8.6 MG TABLET GT SCH (21:53)
[2018-08-06 00:57] VITALS: BP 153/55
[2018-08-06 04:00] VITALS: BP 137/59
--- NOTE | 2018-08-06 06:07 | NUR ---
RN CLOSING NOTE ENDORSED PT FOR ARNOL, NO CHANGE IN CONDITION NOTED, TOLERATED NC @ 3L, GTF@50CC/HR, WELL NIKI' NO RESIDUAL AT THIS TIME, HOB ELEVATED, ASP' PRECAUTION. F/C SUSPENDED TO GRAVITY BELOW PT WAIST, SAFETY MEASURES IN PLACE.
[2018-08-06 07:19] LABS: BASOPHILS # (AUTO) 0.1 /CMM (0.0-0.2); BASOPHILS % (AUTO) 0.7 % (0.0-2.0); EOSINOPHILS % (AUTO) 1.4 % (0.0-6.0); HEMATOCRIT 29 % (33-45); HEMOGLOBIN 9.5 g/dL (11.5-14.8); LYMPHOCYTES # (AUTO) 0.7 /CMM (0.8-4.8); MEAN CORPUSCULAR HGB CONC 33 g/dl (31.0-36.0); MEAN CORPUSCULAR VOLUME 79 fL (82-100); MONOCYTES # (AUTO) 0.9 /CMM (0.1-1.30); MONOCYTES % (AUTO) 11.4 % (2.0-12.0); NEUTROPHILS # (AUTO) 6.3 /CMM (1.8-8.9); NEUTROPHILS % (AUTO) 77.5 % (43.0-81.0); PLATELET COUNT (AUTO) 291 /CMM (150-450); RED BLOOD CELL COUNT(AUTO) 3.67 MIL/uL (4.0-5.2); WHITE BLOOD COUNT (AUTO) 8.1 K/uL (4.3-11.0)
[2018-08-06] MEDS: ACETYLCYSTEINE 10% SOLN 400 MG/4 ML VIAL NEB SCH ×3 (07:19→23:29)
[2018-08-06 07:31] LABS: CALCIUM, SERUM 9.1 mg/dL (8.5-10.1); CARBON DIOXIDE 31 mmol/L (21-32); CHLORIDE 105 mmol/L (98-107); CREATININE 0.7 mg/dL (0.6-1.3); GLUCOSE 131 mg/dL (74-106); MAGNESIUM 2.1 mg/dL (1.8-2.4); PHOSPHORUS 3.5 mg/dL (2.5-4.9); POTASSIUM 4.3 mmol/L (3.5-5.1); SODIUM SERUM 144 mmol/L (136-145); UREA NITROGEN, BLOOD 28 mg/dL (7-18)
--- NOTE | 2018-08-06 07:35 | NUR ---
RN NOTE: RECEIVED PATIENT IN BED, ASLEEP, ABLE TO OPEN EYES SPONTANEOUSLY AND NOTED NONVERBAL. ON RECYCLING ATTENDANT SB HR= 58. RESPIRATION EVEN AND UNLABORED SATURATING 96% WITH O2 3L/MIN VIA NC. NO FACIAL GRIMACING NOTED. (L) UA MIDLINE WAS NOTED INTACT AND PATENT, FLUSHED WITH NS 5 ML. DRESSING WAS INTACT AND CLEAN. HOB ELEVATED. GT FEEDING OF JEVITY 1.2 @ 50ML/HR NOTED WITH NO RESIDUAL AND PATIENT TOLERATED IT WELL. LANG CATHETER IN PLACED WITH YELLOW URINE DRAINING TO GRAVITY. BED ALARMED AND LOCKED AT ALL TIMES. SEIZURE PRECAUTION WAS OBSERVED. BED ON LOWEST POSITION. NEEDS ANTICIPATED.
[2018-08-06 08:00] VITALS: BP_SYST 115; BP_SYST 151; BP_DIAS 50; BP_DIAS 76
[2018-08-06] MEDS: VALPROIC ACID 250 MG/5 ML UDC GT SCH ×3 (08:19→20:20)
[2018-08-06] MEDS: ASPIRIN 81 MG TAB.CHEW GT SCH (08:19)
[2018-08-06] MEDS: LEVOTHYROXINE SODIUM 50 MCG TABLET GT SCH (08:19)
[2018-08-06] MEDS: PROSOURCE / PROSTAT (PYXIS) 30 ML UDC GT SCH (08:19)
[2018-08-06] MEDS: PANTOPRAZOLE 40 MG/PACK PACK GT SCH (08:20)
[2018-08-06] MEDS: FERROUS SULFATE UDC 300 MG/5 ML UDC GT SCH (08:20)
[2018-08-06] MEDS: FAMOTIDINE (20 MG) 20 MG TABLET GT SCH (08:20)
[2018-08-06] MEDS: LACTOBACILLUS RHAMNOSUS GG 1 EACH CAP.SPRINK GT SCH ×2 (08:20→16:08)
[2018-08-06] MEDS: AMLODIPINE BESYLATE 5 MG TABLET GT SCH ×2 (08:20→16:08)
[2018-08-06] MEDS: MULTIVIT W/MINERALS 1 TAB TABLET GT SCH (08:21)
[2018-08-06] MEDS: LOSARTAN POTASSIUM 25 MG TABLET PO SCH (08:21)
[2018-08-06] MEDS: ASCORBIC ACID 500 MG TABLET GT SCH ×2 (08:21→16:08)
[2018-08-06] MEDS: OLANZAPINE 2.5 MG TABLET GT SCH ×2 (08:21→20:20)
[2018-08-06] MEDS: ENOXAPARIN SODIUM 60 MG/0.6 ML DISP.SYRIN SQ SCH (08:23)
[2018-08-06] MEDS: NYSTATIN CREAM 15 GM TUBE TP SCH ×2 (08:26→16:33)
[2018-08-06] MEDS: CEFEPIME 2 GM in IV D5W 100 ML IV SCH ×2 (10:01→22:02)
--- NOTE | 2018-08-06 10:30 | NUR ---
RN NOTE: PATIENT WAS GIVEN BED BATH AND WOUND CARE WAS DONE PER MD ORDER. TURNED AND REPOSITIONED THE PATIENT.
[2018-08-06 12:00] VITALS: BP 158/63
[2018-08-06 16:00] VITALS: BP 141/69
[2018-08-06] MEDS: Z GUARD REMEDY 2 OZ OINT TP PRN (16:33)
[2018-08-06] MEDS: JEVITY 1.2 CAL 1,000 ML BOTTLE GT PRN (16:36)
--- NOTE | 2018-08-06 19:21 | NUR ---
RN NOTE: PATIENT ON STABLE CONDITION. BEDSIDE REPORT GIVEN TO THE PM SHIFT NURSE FOR CONTINUITY OF CARE.
[2018-08-06 20:00] VITALS: BP 141/59
--- NOTE | 2018-08-06 20:07 | NUR ---
MATERIAL MAN OPENING NOTES RECEIVED REPORT FROM SHENA HUERTA. PATIENT A/A/O X1 TO NAME & NON-VERBAL, UNABLE TO MAKE NEEDS KNOWN. BREATHING EVEN & UNLABORED, TOLERATING O2 @ 3LPM VIA NC. NO S/S OF RESPIRATORY DISTRESS. ON TELE W/ SINUS RHYTHM, HR 68. LEFT UPPER ARM MIDLINE INTACT & PATENT W/ DRESSING CDI, SALINE LOCKED. G-TUBE INTACT & FLUSHING WELL W/ GTF JEVITY 1.2 RUNNING @ 50 ML/HR. NO RESIDUAL NOTED @ THIS TIME. NO S/S OF PAIN OR DISCOMFORT. SAFETY MEASURES IN PLACE W/ SIDE RAILS UP & BED ALARM ON. HOB ELEVATED FOR ASPIRATION PRECAUTIONS. TURNED & REPOSITIONED FOR COMFORT. WILL CONTINUE TO MONITOR.
[2018-08-06] MEDS: SENNOSIDES 8.6 MG TABLET GT SCH (21:46)
[2018-08-07] VITALS: BP 135/86
[2018-08-07 04:00] VITALS: BP 174/91
[2018-08-07] MEDS: ACETAMINOPHEN 325 MG TABLET PO PRN (04:55)
[2018-08-07] MEDS: hydrALAZINE HCL IV 20 MG VIAL IV PRN (05:16)
[2018-08-07 07:03] LABS: BASOPHILS # (AUTO) 0.1 /CMM (0.0-0.2); EOSINOPHILS % (AUTO) 1.9 % (0.0-6.0); HEMATOCRIT 32 % (33-45); HEMOGLOBIN 10.7 g/dL (11.5-14.8); LYMPHOCYTES # (AUTO) 0.9 /CMM (0.8-4.8); LYMPHOCYTES % (AUTO) 11.2 % (20.0-44.0); MEAN CORPUSCULAR HGB CONC 33 g/dl (31.0-36.0); MEAN CORPUSCULAR VOLUME 79 fL (82-100); MONOCYTES # (AUTO) 0.8 /CMM (0.1-1.30); MONOCYTES % (AUTO) 10.1 % (2.0-12.0); NEUTROPHILS % (AUTO) 75.8 % (43.0-81.0); PLATELET COUNT (AUTO) 300 /CMM (150-450); RED BLOOD CELL COUNT(AUTO) 4.11 MIL/uL (4.0-5.2)
[2018-08-07 07:17] LABS: CALCIUM, SERUM 9.3 mg/dL (8.5-10.1); CARBON DIOXIDE 29 mmol/L (21-32); CHLORIDE 102 mmol/L (98-107); CREATININE 0.7 mg/dL (0.6-1.3); GLUCOSE 128 mg/dL (74-106); MAGNESIUM 1.9 mg/dL (1.8-2.4); PHOSPHORUS 2.9 mg/dL (2.5-4.9); POTASSIUM 4.1 mmol/L (3.5-5.1); SODIUM SERUM 140 mmol/L (136-145); UREA NITROGEN, BLOOD 29 mg/dL (7-18)
[2018-08-07 08:00] VITALS: BP 140/92
--- NOTE | 2018-08-07 08:00 | NUR ---
PLASTER APPLICATOR NOTE RECEIVED PATIENT IN BED , NON VERBAL , RESTING COMFORTABLY AT THIS TIME , ON 2L NC ,NO SOB NOTED , ON TELE MONITOR SR HR 89 , WITH LANG CATH TO GRAVITY WITH YELLOW COLOR URINE , , WITH G RUBE FEEDING ORDERED ,NO RESIDUAL NOTED, KEEP HOB ELEVATED AT ALL TIME , LT UPPER ARM MID LINE IN PLACE , BED IN LOWEST AND LOCKED POSITION , WILL CONT TO MONITOR CLOSELY
[2018-08-07] MEDS: ACETYLCYSTEINE 10% SOLN 400 MG/4 ML VIAL NEB SCH ×2 (08:40→15:41)
[2018-08-07] MEDS: VALPROIC ACID 250 MG/5 ML UDC GT SCH ×2 (08:46→13:30)
[2018-08-07] MEDS: PANTOPRAZOLE 40 MG/PACK PACK GT SCH (08:47)
[2018-08-07] MEDS: FERROUS SULFATE UDC 300 MG/5 ML UDC GT SCH (08:47)
[2018-08-07] MEDS: MULTIVIT W/MINERALS 1 TAB TABLET GT SCH (08:47)
[2018-08-07] MEDS: LACTOBACILLUS RHAMNOSUS GG 1 EACH CAP.SPRINK GT SCH ×2 (08:47→16:33)
[2018-08-07] MEDS: ASCORBIC ACID 500 MG TABLET GT SCH ×2 (08:48→16:33)
[2018-08-07] MEDS: FAMOTIDINE (20 MG) 20 MG TABLET GT SCH ×2 (08:48→08:54)
[2018-08-07] MEDS: ASPIRIN 81 MG TAB.CHEW GT SCH (08:48)
[2018-08-07] MEDS: AMLODIPINE BESYLATE 5 MG TABLET GT SCH ×2 (08:48→16:33)
[2018-08-07] MEDS: OLANZAPINE 2.5 MG TABLET GT SCH (08:48)
[2018-08-07] MEDS: LOSARTAN POTASSIUM 25 MG TABLET PO SCH (08:48)
[2018-08-07] MEDS: ENOXAPARIN SODIUM 60 MG/0.6 ML DISP.SYRIN SQ SCH (08:49)
[2018-08-07] MEDS: NYSTATIN CREAM 15 GM TUBE TP SCH ×2 (08:50→16:34)
[2018-08-07] MEDS: LEVOTHYROXINE SODIUM 50 MCG TABLET GT SCH (08:54)
[2018-08-07] MEDS: PROSOURCE / PROSTAT (PYXIS) 30 ML UDC GT SCH (08:54)
--- NOTE | 2018-08-07 10:30 | NUR ---
KELLER MACHINE OPERATOR NOTE TURN REPOSITION, KEEP CLEAN DRY, ALL NEEDS ATTENDED ,WILL CONT TO MONITOR CLOSELY
[2018-08-07] MEDS: CEFEPIME 2 GM in IV D5W 100 ML IV SCH (11:05)
[2018-08-07 12:00] VITALS: BP 119/51
[2018-08-07] MEDS ORDERED: AMLO5TAB9 GT (12:18)
[2018-08-07] MEDS ORDERED: LACT1CAP72 GT (12:18)
[2018-08-07] MEDS ORDERED: VALP250S22 GT (12:18)
[2018-08-07] MEDS ORDERED: OLAN2.5T3 GT ×3 (12:18)
[2018-08-07] MEDS ORDERED: LOSA25TA3 PO (12:18)
[2018-08-07] MEDS ORDERED: NYST15CR TP (12:18)
[2018-08-07] MEDS ORDERED: ACET1OOV6 NEB (12:18)
--- NOTE | 2018-08-07 12:31 | NUR ---
MS RN NOTE SEEN BY DR EDITH ALVAREZ TO D\C TO SNF
--- NOTE | 2018-08-07 12:57 | NUR ---
MS RN NOTE CALLED TO SNF SPOKE WITH LUBA HUERTA , REPORT GIVEN
--- NOTE | 2018-08-07 13:02 | NUR ---
MS RN NOTE CALLED AZAM KILGORE NOTIFIED THAT PATIENT WILL BE TRANSFER TO SNF TODAY
--- NOTE | 2018-08-07 15:44 | NUR ---
MS RN NOTE RT AT BEDSIDE BREATHING TX DOING , KEEP CLEAN DRY ,TURN REPOSITION , ALL NEEDS ATTENDED MOUTH CARE DONE
[2018-08-07 16:00] VITALS: BP 130/55
[2018-08-07 16:33] VITALS: BP 130/55
--- NOTE | 2018-08-07 17:28 | NUR ---
MS RN NOTE AMBULANCE ARRIVED REPORT GIVEN, MID LINE REMOVED AND HL ON RT FA , WENT TO SNF WITH STABLE CONDITION
== END 2018-08-07 17:39 | DRG 870 ==
LOC: ER 09:25 → ICU 09:57 → TELE-TD 07-28 16:21 → TELE1 07-29 10:07 → MEDSG1 07-29 12:53 → ICU 08-02 10:06 → TELE-TD 08-04 18:03 → TELE1 08-06 08:30 → MEDSG1 08-07 11:35
PROVIDERS: ADMIT Family Medicine; ATTEND Internal Medicine
PROC: 5A1955Z Respiratory Ventilation, Greater than 96 Consecutive Hours (ICD-10-PCS; principal; 2018-07-16)
PROC: 05H533Z Insertion of Infusion Device into Right Subclavian Vein, Percutaneous Approach (ICD-10-PCS; 2018-07-16)
PROC: B546ZZA Ultrasonography of Right Subclavian Vein, Guidance (ICD-10-PCS; 2018-07-16)
PROC: 5A09457 Assistance with Respiratory Ventilation, 24-96 Consecutive Hours, Continuous Positive Airway Pressure (ICD-10-PCS; 2018-08-02)
DX: A41.52 Sepsis due to Pseudomonas (principal); L89.93 Pressure ulcer of unspecified site, stage 3; J96.01 Acute respiratory failure with hypoxia; N17.0 Acute kidney failure with tubular necrosis; J96.02 Acute respiratory failure with hypercapnia; I50.31 Acute diastolic (congestive) heart failure; J15.1 Pneumonia due to Pseudomonas; E44.1 Mild protein-calorie malnutrition; E87.1 Hypo-osmolality and hyponatremia; E87.2 Acidosis; G93.40 Encephalopathy, unspecified; Z99.11 Dependence on respirator [ventilator] status; F03.91 Unspecified dementia, unspecified severity, with behavioral disturbance; I82.621 Acute embolism and thrombosis of deep veins of right upper extremity; J98.11 Atelectasis; B37.49 Other urogenital candidiasis; E03.9 Hypothyroidism, unspecified; K21.9 Gastro-esophageal reflux disease without esophagitis; Z93.1 Gastrostomy status; Z93.0 Tracheostomy status; R13.10 Dysphagia, unspecified; Z79.82 Long term (current) use of aspirin; E87.5 Hyperkalemia; I11.0 Hypertensive heart disease with heart failure; F25.9 Schizoaffective disorder, unspecified; D64.9 Anemia, unspecified; Z79.899 Other long term (current) drug therapy; I45.10 Unspecified right bundle-branch block; E86.1 Hypovolemia; R32 Unspecified urinary incontinence; M85.9 Disorder of bone density and structure, unspecified; Z22.322 Carrier or suspected carrier of Methicillin resistant Staphylococcus aureus; R23.3 Spontaneous ecchymoses; I70.0 Atherosclerosis of aorta
CPT/HCPCS: 31720; 36415; 36569; 36600; 70450-TC; 71045-TC; 80048-TC; 80053-TC; 80061-TC; 80076-TC; 80164-TC; 80202-TC; 81000-TC; 82803-TC; 83605-TC; 83735-TC; 84100-TC; 84484-TC; 85025-TC; 85730-TC; 87040-TC; 87070-TC; 87081-TC; 87086-TC; 87186-TC; 93971-TC; 94002-TC; 94003-TC; 94640-TC; 94760-TC; 94799-TC; 99082-TC; A4216; A4217; A6253; A6402; G0378; J0330; J0360; J0692; J0696; J1650; J1940; J1956; J2060; J3370; J3475; J3490; J7030; J7050; J7060

== ENCOUNTER 2018-10-13 16:13 | Inpatient (IN) | payer MEDICARE, OTHER ==
[~2018-10-13] VITALS: Ht 160 cm; Wt 53.1 kg
[2018-10-13] VITALS (7 sets, daily range): BP systolic 118–147; BP diastolic 39–66
[~2018-10-13 16:13] MED LIST changes: -ACET-2605 GT; +ACET1OOV6 NEB; -AMLO5TAB4 GT; +AMLO5TAB9 GT; -ASPI-1152 GT; +ASPI-1169 GT; +BISA10SU11 RC; -BISA10SU8 RC; +FERR300L GT; -FERR325T23 GT; +LACT1CAP72 GT; +LOSA25TA3 PO; -MERO1VIA3 IV; +NYST15CR TP; +OLAN2.5T3 GT; -ONDA4TAB5 GT; -RISP0.253 GT; +VALP250S22 GT; +VIT500LI GT
[2018-10-13] MEDS ORDERED: IV NS 0.9% 500 ML BAG IV ONE (16:30)
--- NOTE | 2018-10-13 16:30 | NUR ---
PATIENT BIBRA 70 FROM [facility], C/O MORE ALTERED THAN USUAL. PATIENT NON-VERBAL. NO FACIAL GRIMACE NOTED. RESTING ON GURNEY. AWAITING FOR MC
[2018-10-13 16:45] LABS: BASOPHILS # (AUTO) 0.1 /CMM (0.0-0.2); BASOPHILS % (AUTO) 0.5 % (0.0-2.0); EOSINOPHILS % (AUTO) 0.3 % (0.0-6.0); HEMATOCRIT 34 % (33-45); HEMOGLOBIN 11.1 g/dL (11.5-14.8); LYMPHOCYTES # (AUTO) 0.5 /CMM (0.8-4.8); MEAN CORPUSCULAR HGB CONC 33 g/dl (31.0-36.0); MEAN CORPUSCULAR VOLUME 82 fL (82-100); MONOCYTES # (AUTO) 1.2 /CMM (0.1-1.30); MONOCYTES % (AUTO) 7.2 % (2.0-12.0); NEUTROPHILS # (AUTO) 15.3 /CMM (1.8-8.9); PLATELET COUNT (AUTO) 386 /CMM (150-450); RED BLOOD CELL COUNT(AUTO) 4.14 MIL/uL (4.0-5.2); WHITE BLOOD COUNT (AUTO) 17.1 K/uL (4.3-11.0)
[2018-10-13 16:51] LABS: CALCIUM, SERUM 9.1 mg/dL (8.5-10.1); CARBON DIOXIDE 26 mmol/L (21-32); CHLORIDE 103 mmol/L (98-107); CREATININE 1.1 mg/dL (0.6-1.3); GLUCOSE 162 mg/dL (74-106); POTASSIUM 4.2 mmol/L (3.5-5.1); SODIUM SERUM 140 mmol/L (136-145); UREA NITROGEN, BLOOD 65 mg/dL (7-18)
[2018-10-13 16:56] LABS: ALANINE AMINOTRANSFERASE 17 U/L (12-78); ALBUMIN 2.7 g/dL (3.4-5.0); ALKALINE PHOSPHATASE 76 U/L (46-116); ASPARTATE AMINOTRANSFERASE 21 U/L (15-37); BILIRUBIN,DIRECT 0.1 mg/dL (0.0-0.2); BILIRUBIN,TOTAL 0.4 mg/dL (0.2-1.0); TOTAL PROTEIN, SERUM 8.1 g/dL (6.4-8.2)
[2018-10-13] MEDS ORDERED: ZINC220C8 GT (17:03)
[2018-10-13] MEDS ORDERED: AMLO5TAB9 GT (17:03)
[2018-10-13] MEDS ORDERED: LOSA25TA27 GT (17:03)
[2018-10-13] MEDS ORDERED: VALP250S4 GT (17:03)
[2018-10-13] MEDS ORDERED: NA P133E RC (17:03)
--- NOTE | 2018-10-13 17:10 | NUR ---
RECTAL TEMP OBTAINED WITH RESULT OF 103.3. DR OLVERA MADE AWARE
[2018-10-13] MEDS ORDERED: PIPERACILLIN /TAZOBACTAM 3.375 G in IV D5W 50 ML IV ONE (17:30)
[2018-10-13] MEDS ORDERED: LEVOFLOXACIN 750 MG /D5W 150ML 150 ML IV ONE ×2 (17:30→17:32)
[2018-10-13 17:47] LABS: ALANINE AMINOTRANSFERASE 15 U/L (12-78); ALBUMIN 2.7 g/dL (3.4-5.0); ALKALINE PHOSPHATASE 71 U/L (46-116); ASPARTATE AMINOTRANSFERASE 20 U/L (15-37); BILIRUBIN,DIRECT 0.1 mg/dL (0.0-0.2); BILIRUBIN,TOTAL 0.4 mg/dL (0.2-1.0); TOTAL PROTEIN, SERUM 7.7 g/dL (6.4-8.2)
[2018-10-13] MEDS ORDERED: IV NS 0.9% 1,000 ML BAG IV ONE (18:00)
[2018-10-13 18:26] LABS: ABG BASE EXCESS 2.6 mmol/L; ABG OXYGEN SATURATION 89.7 % (92.0-98.5); ABG PCO2 35.7 mmHg (35.0-45.0); ABG PO2 57.3 mmHg (75.0-100.0); AaDO2 331.2 mmHg; COHb 0.3 % (0.5-1.5); MetHb 0.6 % (0.0-1.5); O2Hb 88.9 % (94.0-97.0); SITE, ABG Right Brachial; VENT MODE, BG SIMPLE MASK
[2018-10-13 18:52] LABS: APPEARANCE,URINE Slightly Cloudy (CLEAR); BILIRUBIN,URINE Negative (NEGATIVE); BLOOD, URINE Trace-intact Ery/uL (NEGATIVE); COLOR,URINE Yellow (YELLOW); KETONES,URINE Negative (NEGATIVE); LEUKOCYTE ESTERASE ,URINE Trace (NEGATIVE); NITRITE, URINE Negative (NEGATIVE); PH,URINE 6.5 (5.0-8.0); PROTEIN,URINE 100 mg/dl (NEGATIVE); UGLUCOSE Negative (NEGATIVE); UROBILINOGEN,URINE 0.2 EU/dL (0.2)
[2018-10-13 19:08] LABS: BACTERIA,URINE Few /HPF (None Seen); SQUAMOUS EPITHELIAL CELL,UR Few /HPF (None Seen)
--- NOTE | 2018-10-13 19:29 | NUR ---
Jazmin umaña in [facility] - 10/13/18 at 1938 by DOLLY PT AND REPORT RECEIVED FROM BRADLEY JAMIL FOR ARNOL.
--- NOTE | 2018-10-13 19:29 | NUR ---
PT AND REPORT RECEIVED FROM BRADLEY JAMIL FOR ARNOL.
--- NOTE | 2018-10-13 19:38 | NUR ---
REPORT GIVEN TO BRADLEY HOUSTON FOR ARNOL. PT GOING TO ICU 254
--- NOTE | 2018-10-13 19:38 | NUR ---
ENDORSED REPORT FROM [employer]ICATIONS SALES REPRESENTATIVE FOR CONTINUITY OF CARE.
--- NOTE | 2018-10-13 20:20 | NUR ---
RECEIVED PT IN NO ACUTE DISTRESS IN BED. PT IS ON O2 VIA NON REBREATHER @ 15LPM AND TOLERATING WELL WITH O2 SAT @ 95%. PT HAS AUDIBLE CRACKLES. WILL HAVE RT AT BEDSIDE TO HELP SUCTION PT. PT HAS GTUBE THAT IS CLEAN DRY INTACT AND PATENT WITH FREE WATER FLUSH. PT HAS LEFT HAND 20G THAT IS CLEAN DRY INTACT AND PATENT WITH SALINE LOCK. BED IN LOW LOCK POSITION WITH RAILS UP X 2. CALL LIGHT WITHIN REACH AND ALL SAFETY MEASURES ENSURED AND CARRIED OUT. WILL CONTINUE TO MONITOR PT.
[2018-10-13] MEDS ORDERED: FEE PK DOSING 1 MIN EA MC ONE (20:43)
[2018-10-13] MEDS ORDERED: ONDANSETRON HCL/PF 4 MG/2 ML VIAL IVP PRN (21:00)
[2018-10-13] MEDS ORDERED: MAG HYDROX/AL HYDROX/SIMETH 30 ML UDC PO PRN (21:00)
[2018-10-13] MEDS ORDERED: MAGNESIUM HYDROXIDE 30 ML UDC PO PRN (21:00)
[2018-10-13] MEDS: VANCOMYCIN 1 GM in IV D5W 250 ML IV SCH (21:10)
[2018-10-13] MEDS: ENOXAPARIN SODIUM 40 MG/0.4 ML DISP.SYRIN SQ SCH (21:12)
[2018-10-13] MEDS: IV NS 0.9% 1,000 ML IV PRN (21:20)
--- NOTE | 2018-10-13 22:04 | NUR ---
NOTIFIED LOOM FIXER APPRENTICE EMILY NEVES NP FOR CRITICAL LAB VALUE- LACTIC ACID 3.3. RECEIVED ORDERS TO GIVE 1 LITER BOLUS AND RECHECK LACTIC ACID IN 6 HOURS. READ BACK ORDERS PERFORMED AND CARRIED OUT.
[2018-10-13] MEDS ORDERED: CEFEPIME 1 GM VIAL ONE (23:08)
[2018-10-13] MEDS: CEFEPIME 2 GM in IV D5W 100 ML IV SCH (23:22)
[2018-10-13] MEDS ORDERED: IV NS 0.9% 1,000 ML IV ONE (23:30)
[2018-10-14] VITALS (38 sets, daily range): BP systolic 97–157; BP diastolic 43–83
[2018-10-14] MEDS ORDERED: PIPERACILLIN /TAZOBACTAM 3.375 G VIAL IV ONE ×2 (00:01→04:24)
[2018-10-14] MEDS: PIPERACILLIN /TAZOBACTAM 3.375 G in IV D5W 50 ML IV SCH ×4 (00:08→17:00)
[2018-10-14 03:24] LABS: BASOPHILS % (AUTO) 0.2 % (0.0-2.0); HEMATOCRIT 28 % (33-45); HEMOGLOBIN 9.1 g/dL (11.5-14.8); LYMPHOCYTES # (AUTO) 0.4 /CMM (0.8-4.8); LYMPHOCYTES % (AUTO) 1.8 % (20.0-44.0); MEAN CORPUSCULAR HGB CONC 33 g/dl (31.0-36.0); MEAN CORPUSCULAR VOLUME 82 fL (82-100); MONOCYTES # (AUTO) 1.6 /CMM (0.1-1.30); NEUTROPHILS # (AUTO) 20.7 /CMM (1.8-8.9); PLATELET COUNT (AUTO) 295 /CMM (150-450); RED BLOOD CELL COUNT(AUTO) 3.38 MIL/uL (4.0-5.2); WHITE BLOOD COUNT (AUTO) 22.7 K/uL (4.3-11.0)
[2018-10-14 03:36] LABS: CHOLESTEROL 110 mg/dL (<200); HDL CHOLESTEROL 46 mg/dL (40-60); LDL 58 mg/dL (0-99); TRIGLYCERIDES 41 mg/dL (30-150)
[2018-10-14 03:40] LABS: ALANINE AMINOTRANSFERASE 14 U/L (12-78); ALBUMIN 2.2 g/dL (3.4-5.0); ALKALINE PHOSPHATASE 58 U/L (46-116); ASPARTATE AMINOTRANSFERASE 19 U/L (15-37); BILIRUBIN,TOTAL 0.6 mg/dL (0.2-1.0); CALCIUM, SERUM 8.1 mg/dL (8.5-10.1); CARBON DIOXIDE 26 mmol/L (21-32); CHLORIDE 107 mmol/L (98-107); CREATININE 0.9 mg/dL (0.6-1.3); GLUCOSE 119 mg/dL (74-106); MAGNESIUM 1.8 mg/dL (1.8-2.4); PHOSPHORUS 3.5 mg/dL (2.5-4.9); SODIUM SERUM 143 mmol/L (136-145); TOTAL PROTEIN, SERUM 6.7 g/dL (6.4-8.2); UREA NITROGEN, BLOOD 46 mg/dL (7-18)
[2018-10-14] MEDS: CEFEPIME 2 GM in IV D5W 100 ML IV SCH (05:00)
--- NOTE | 2018-10-14 06:55 | NUR ---
PT REMAINS IN NO ACUTE DISTRESS IN BED. PT DID NOT HAVE ANY SIGNIFICANT CHANGE IN CONDITION DURING SHIFT. ALL NEEDS MET, ALL ORDERS CARRIED OUT. WILL ENDORSE CARE TO AM RN FOR CONTINUITY OF CARE.
--- NOTE | 2018-10-14 07:00 | NUR ---
RN NOTES RECEIVED PT ON BED, DRAWZY , OPENS EYES TO PAINFUL STIMULI, ON ON SIMPLE MASK AT 10L , O2 SAT 98%, ON TELE SR WITH BBB HR IN 80'S , GT INTACT , NS AT 75CC /HR RUNNING VIA R UPPER ARM MIDLINE , SITE CLEAN ,DRY AND INTACT, SR UP x3, CALL LIGHT WITHIN EASY REACH, BED LOCKED AND IN LOWEST POSITION, CONTINUE TO MONITOR .
[2018-10-14 08:33] LABS: ABG BASE EXCESS 3.4 mmol/L; ABG OXYGEN SATURATION 95.1 % (92.0-98.5); ABG PH 7.432 (7.350-7.450); ABG PO2 75.1 mmHg (75.0-100.0); AaDO2 189.6 mmHg; COHb 0.1 % (0.5-1.5); MetHb 0.5 % (0.0-1.5); O2Hb 94.5 % (94.0-97.0); SITE, ABG Right Radial; VENT MODE, BG SIMPLE MASK
[2018-10-14] MEDS ORDERED: CEFEPIME 2 GM in IV D5W 100 ML IV SCH (11:00)
--- NOTE | 2018-10-14 11:00 | NUR ---
RN NOTES PT IS MOUTH BREATHER , O2 SAT 88% ON 4 L O2 N/C , PT PLACED BACK ON FACE MASK AT 6L O2 N/C, DR BERMUDEZ NOTIFED. CONTINUE TO MONITOR .
[2018-10-14] MEDS: IV NS 0.9% 1,000 ML IV PRN (11:34)
[2018-10-14] MEDS: JEVITY 1.2 CAL 1,000 ML BOTTLE GT PRN (11:52)
--- NOTE | 2018-10-14 14:00 | NUR ---
RN NOTES PT TOLERATING TF AT 35CC/HR WELL, NO RESIDUAL NOTED, CONTINUE TO MONITOR .
[2018-10-14 14:54] LABS: BILIRUBIN,URINE NEGATIVE (NEGATIVE); BLOOD, URINE 1+ Ery/uL (NEGATIVE); COLOR,URINE YELLOW (YELLOW); KETONES,URINE NEGATIVE (NEGATIVE); LEUKOCYTE ESTERASE ,URINE NEGATIVE (NEGATIVE); NITRITE, URINE NEGATIVE (NEGATIVE); PH,URINE 5.5 (5.0-8.0); PROTEIN,URINE 1+ mg/dl (NEGATIVE); UGLUCOSE NEGATIVE (NEGATIVE); UROBILINOGEN,URINE 0.2 EU/dL (0.2)
[2018-10-14 15:03] LABS: APPEARANCE,URINE SLIGHTLY CLOUDY (CLEAR)
[2018-10-14 15:07] LABS: BACTERIA,URINE Few /HPF (None Seen); SQUAMOUS EPITHELIAL CELL,UR Rare /HPF (None Seen); WBC,URINE 0-2 /HPF (0-3)
[2018-10-14 15:08] LABS: URINE AMORPHOUS URATE Few /HPF (None Seen)
[2018-10-14] MEDS: VANCOMYCIN 1 GM in IV D5W 250 ML IV SCH (15:08)
[2018-10-14] MEDS: LACTOBACILLUS RHAMNOSUS GG 1 EACH CAP.SPRINK GT SCH (16:41)
[2018-10-14] MEDS: Z GUARD REMEDY 2 OZ OINT TP PRN (17:05)
--- NOTE | 2018-10-14 18:00 | NUR ---
RN NOTES PT STILL ON FACE MASK AT 6 L O2 N/C , NS AT 75CC/HR RUNNING VIA R UPPER ARM MIDLINE, SITE CLEAN, DRY AND INTACT, TOLEIANG TF AT 40CC/HR WELL VIA GT , NO RESIDUAL NOTED WILL ENDOSE TO LICENSE DISTRIBUTOR NURSE FOR CONTINUITY OF CARE .
--- NOTE | 2018-10-14 19:00 | NUR ---
LOCATION MANAGER NOTE PATIENT RECEIVED IN BED VERBAL, BUT UNABLE TO COMPREHEND WORDS. PATIENT DIAPER NOTED TO BE WET CHANGED PATIENT, PATIENT ABLE TO FOLLOW SIMPLE COMMANDS. PATIENT TOLERATED THE CHANGE WELL. PATIENT RUNNING 75 ML ON MIDLINE MACY NO S/S OF INFECTION. SAFETY PRECAUTIONS IN PLACE RN WILL CONTINUE TO MONITOR.
[2018-10-14] MEDS: MEROPENEM 1 G in IV NS 0.9% 100 ML IV SCH (20:02)
[2018-10-14] MEDS: ENOXAPARIN SODIUM 40 MG/0.4 ML DISP.SYRIN SQ SCH (20:03)
[2018-10-15] VITALS (31 sets, daily range): BP systolic 112–180; BP diastolic 42–80
[2018-10-15] MEDS: IV NS 0.9% 1,000 ML IV PRN ×2 (03:06→21:03)
[2018-10-15 05:06] LABS: CALCIUM, SERUM 8.2 mg/dL (8.5-10.1); CARBON DIOXIDE 26 mmol/L (21-32); CHLORIDE 109 mmol/L (98-107); CREATININE 0.8 mg/dL (0.6-1.3); GLUCOSE 135 mg/dL (74-106); POTASSIUM 3.2 mmol/L (3.5-5.1); SODIUM SERUM 143 mmol/L (136-145); UREA NITROGEN, BLOOD 32 mg/dL (7-18)
--- NOTE | 2018-10-15 06:52 | NUR ---
AIRPLANE RENTAL CLERK NOTE CARE RENDERED ORDERED. PATIENT STILL ON 6L NC SATURATION AT 97% AND MACY MIDLINE AT 74 ML/HR. ENDORSED POC TO AM FOR ARNOL.
--- NOTE | 2018-10-15 08:00 | NUR ---
PT RECEIVED FROM OUTGOING RN IN BED ON REGULAR MASK,O2 SAT 96%,NO S/S OF ACUTE DISTRESS NOTEDpT REMAINS ON IV FLUID AT 75 ML AND TUBE FEEDING AT 50MLS.NO S/S OF FLUID OVERLOAD NOTED.PT POTASSIUM LOW REPLACEMENT DONE ORDERED.PT TURNED AND REPOSITIONNED ORDERED.
[2018-10-15] MEDS: LACTOBACILLUS RHAMNOSUS GG 1 EACH CAP.SPRINK GT SCH ×2 (08:08→17:07)
[2018-10-15] MEDS: VANCOMYCIN 1 GM in IV D5W 250 ML IV SCH (08:09)
[2018-10-15] MEDS: MEROPENEM 1 G in IV NS 0.9% 100 ML IV SCH ×2 (08:09→21:22)
[2018-10-15 08:30] LABS: ABG OXYGEN SATURATION 94.2 % (92.0-98.5); ABG PCO2 37.3 mmHg (35.0-45.0); ABG PH 7.444 (7.350-7.450); ABG PO2 68.9 mmHg (75.0-100.0); AaDO2 303.4 mmHg; COHb 0.3 % (0.5-1.5); MetHb 0.5 % (0.0-1.5); O2Hb 93.4 % (94.0-97.0); SITE, ABG Right Radial; VENT MODE, BG 6L SIMPLE MASK
[2018-10-15 09:10] LABS: BASOPHILS # (AUTO) 0.1 /CMM (0.0-0.2); BASOPHILS % (AUTO) 0.7 % (0.0-2.0); EOSINOPHILS % (AUTO) 0.7 % (0.0-6.0); HEMATOCRIT 27 % (33-45); HEMOGLOBIN 8.6 g/dL (11.5-14.8); LYMPHOCYTES # (AUTO) 0.4 /CMM (0.8-4.8); LYMPHOCYTES % (AUTO) 2.6 % (20.0-44.0); MEAN CORPUSCULAR HGB CONC 32 g/dl (31.0-36.0); MEAN CORPUSCULAR VOLUME 83 fL (82-100); MONOCYTES # (AUTO) 0.9 /CMM (0.1-1.30); NEUTROPHILS # (AUTO) 13.9 /CMM (1.8-8.9); PLATELET COUNT (AUTO) 272 /CMM (150-450); RED BLOOD CELL COUNT(AUTO) 3.21 MIL/uL (4.0-5.2); WHITE BLOOD COUNT (AUTO) 15.4 K/uL (4.3-11.0)
[2018-10-15] MEDS: POTASSIUM CL. PREMIX PERIPHER. 50 ML IV SCH ×4 (09:22→11:40)
[2018-10-15 09:35] LABS: CALCIUM, SERUM 8.3 mg/dL (8.5-10.1); CARBON DIOXIDE 28 mmol/L (21-32); CHLORIDE 108 mmol/L (98-107); CREATININE 0.8 mg/dL (0.6-1.3); GLUCOSE 153 mg/dL (74-106); POTASSIUM 3.4 mmol/L (3.5-5.1); SODIUM SERUM 142 mmol/L (136-145); UREA NITROGEN, BLOOD 31 mg/dL (7-18)
[2018-10-15] MEDS ORDERED: POTASSIUM CHLORIDE 20 MEQ TAB.PRT.SR PO SCH (10:30)
[2018-10-15] MEDS: JEVITY 1.2 CAL 1,000 ML BOTTLE GT PRN (12:01)
[2018-10-15 13:30] LABS: ABG BASE EXCESS -1.4 mmol/L; ABG OXYGEN SATURATION 81.5 % (92.0-98.5); ABG PH 7.461 (7.350-7.450); ABG PO2 40.7 mmHg (75.0-100.0); COHb 0.3 % (0.5-1.5); MetHb 0.4 % (0.0-1.5); O2Hb 80.9 % (94.0-97.0); SITE, ABG Right Radial; VENT MODE, BG 6L SIMPLE MASK
--- NOTE | 2018-10-15 13:30 | NUR ---
DISTRICT PLANT SUPERINTENDENT FOUND PT TACHYPNEIC, TACHYCARDIC, RESLESS, DIAPHORETIC. PT ON O2 AT 6L MASK. ABG DRAWN. RESULTS REVIEWED AND RELAYED TO DR VEE. ORDER RECEIVED FOR BIPAP. PT PLACED ON BIPAP BY RT.
--- NOTE | 2018-10-15 13:49 | NUR ---
RT PATIENT BECAME SOB AND HYPOXIC REQUIRING BIPAP. ORDERS GIVEN BY DR VEE. ALARMS CHECKED + AUDIBLE. AMBU BAG AT HOB Addendum: 10/15/18 at 1351 by SONIA DE LA FUENTE RT Amended: Links added.
--- NOTE | 2018-10-15 14:25 | NUR ---
PT BECOME HYPOXIQUE BECOME AGITATED AND SWEATY,PT [address] ON BYPAP PER MD ORDER SETTING 18/12 RATE 12
--- NOTE | 2018-10-15 18:12 | NUR ---
RN NOTES 1500-ASSUMED PATIENT CARE. PATIENT NOW ON BIPAP, 18/12, 100%, SHE RESPONDS TO VOICE, FOLLOWS 1 SUIMPLE COMMAND. NO SIGN OF PAIN NOTED. SAFETY MAINTAINED 1800-RESTING. REMAISN ON BIPAP. SAFETY MAINTAINED.
--- NOTE | 2018-10-15 19:17 | NUR ---
RN NOTES PATIENT ASLEEP, NO SIGN OF PAIN
[2018-10-15] MEDS: MUPIROCIN OINT 2% 22 GM TUBE SCH (21:23)
[2018-10-15] MEDS: ENOXAPARIN SODIUM 40 MG/0.4 ML DISP.SYRIN SQ SCH (21:24)
[2018-10-16] VITALS (35 sets, daily range): BP systolic 100–176; BP diastolic 45–94
[2018-10-16] MEDS: VANCOMYCIN 1 GM in IV D5W 250 ML IV SCH ×2 (03:00→20:42)
[2018-10-16] MEDS: JEVITY 1.2 CAL 1,000 ML BOTTLE GT PRN ×2 (04:33→23:20)
[2018-10-16] MEDS: ACETAMINOPHEN 325 MG TABLET PO PRN ×2 (04:33→17:22)
--- NOTE | 2018-10-16 04:36 | NUR ---
pt rec'd on bipap on settings as charted per md orders. no resp distress or sob noted. alarms are set and audible. bipap plugged into red outlet. cherelle grant bedside. will continue to monitor closely. Addendum: 10/16/18 at 0436 by JAMIE TIMMONS RT Amended: Links added.
[2018-10-16 05:10] LABS: CALCIUM, SERUM 8.4 mg/dL (8.5-10.1); CARBON DIOXIDE 25 mmol/L (21-32); CHLORIDE 105 mmol/L (98-107); CREATININE 0.7 mg/dL (0.6-1.3); GLUCOSE 222 mg/dL (74-106); POTASSIUM 3.7 mmol/L (3.5-5.1); SODIUM SERUM 140 mmol/L (136-145); UREA NITROGEN, BLOOD 26 mg/dL (7-18)
[2018-10-16] MEDS: LACTOBACILLUS RHAMNOSUS GG 1 EACH CAP.SPRINK GT SCH ×2 (08:37→16:42)
[2018-10-16] MEDS: MEROPENEM 1 G in IV NS 0.9% 100 ML IV SCH ×2 (08:37→20:42)
[2018-10-16] MEDS: MUPIROCIN OINT 2% 22 GM TUBE SCH ×2 (08:38→20:43)
[2018-10-16 10:23] LABS: ABG BASE EXCESS 3.4 mmol/L; ABG OXYGEN SATURATION 98.6 % (92.0-98.5); ABG PCO2 45.3 mmHg (35.0-45.0); ABG PH 7.415 (7.350-7.450); AaDO2 338.8 mmHg; COHb 0.3 % (0.5-1.5); MetHb 0.7 % (0.0-1.5); O2Hb 97.6 % (94.0-97.0); SITE, ABG Right Radial; VENT MODE, BG BIPAP 18/8 R12 80%
[2018-10-16] MEDS: IV NS 0.9% 1,000 ML IV PRN ×2 (10:51→23:42)
--- NOTE | 2018-10-16 11:39 | NUR ---
RN NOTES 0730-RECEIVED PATIENT FROM RN. PATIENT REMAINS ON BIPAP FOR RESPIRATORY SUPPORT.PATIENT ASLEEP THIS TIME. 1000-SEEN BY DR. VEE, DR TERRY.PATIENT GETS RESTLESS WHEN ORAL CARE DONE.SAFETY MAINTAINED.
[2018-10-16] MEDS: Z GUARD REMEDY 2 OZ OINT TP PRN (16:45)
[2018-10-16] MEDS: MORPHINE SULFATE INJ 2 MG/ML DISP.SYRIN IV PRN ×2 (18:22→19:23)
--- NOTE | 2018-10-16 18:47 | NUR ---
FIO2 INCREASED DUE TO DECREASED SPO2. RN AWARE Addendum: 10/16/18 at 1848 by CAROLE LUNA RT Amended: Links added.
[2018-10-16] MEDS: ENOXAPARIN SODIUM 40 MG/0.4 ML DISP.SYRIN SQ SCH (20:45)
[2018-10-17] VITALS (47 sets, daily range): BP systolic 86–184; BP diastolic 34–97
[2018-10-17] MEDS: MORPHINE SULFATE INJ 2 MG/ML DISP.SYRIN IV PRN (03:59)
[2018-10-17 04:27] LABS: ABG BASE EXCESS 1.7 mmol/L; ABG OXYGEN SATURATION 90.1 % (92.0-98.5); ABG PCO2 44.6 mmHg (35.0-45.0); ABG PH 7.398 (7.350-7.450); ABG PO2 57.9 mmHg (75.0-100.0); AaDO2 610.5 mmHg; COHb 0.3 % (0.5-1.5); MetHb 0.4 % (0.0-1.5); O2Hb 89.5 % (94.0-97.0); SITE, ABG Right Radial; VENT MODE, BG ST 12 18/8 100%
[2018-10-17 04:52] LABS: BASOPHILS # (AUTO) 0.1 /CMM (0.0-0.2); BASOPHILS % (AUTO) 0.5 % (0.0-2.0); EOSINOPHILS % (AUTO) 1.1 % (0.0-6.0); HEMATOCRIT 31 % (33-45); HEMOGLOBIN 10.1 g/dL (11.5-14.8); LYMPHOCYTES # (AUTO) 1.3 /CMM (0.8-4.8); LYMPHOCYTES % (AUTO) 9.1 % (20.0-44.0); MEAN CORPUSCULAR HGB CONC 32 g/dl (31.0-36.0); MEAN CORPUSCULAR VOLUME 82 fL (82-100); MONOCYTES # (AUTO) 1.7 /CMM (0.1-1.30); MONOCYTES % (AUTO) 11.8 % (2.0-12.0); NEUTROPHILS % (AUTO) 77.5 % (43.0-81.0); PLATELET COUNT (AUTO) 416 /CMM (150-450); RED BLOOD CELL COUNT(AUTO) 3.83 MIL/uL (4.0-5.2); WHITE BLOOD COUNT (AUTO) 14.1 K/uL (4.3-11.0)
[2018-10-17 04:56] LABS: CALCIUM, SERUM 8.9 mg/dL (8.5-10.1); CARBON DIOXIDE 28 mmol/L (21-32); CHLORIDE 102 mmol/L (98-107); CREATININE 0.7 mg/dL (0.6-1.3); GLUCOSE 132 mg/dL (74-106); POTASSIUM 3.8 mmol/L (3.5-5.1); SODIUM SERUM 140 mmol/L (136-145); UREA NITROGEN, BLOOD 22 mg/dL (7-18)
[2018-10-17] MEDS ORDERED: LORAZEPAM INJ 2 MG/ML VIAL IV ONE (05:00)
--- NOTE | 2018-10-17 07:00 | NUR ---
RN NOTES RECEIVED PT ON BED, DRAWZY , ON BIPAP , TOLERATING CURRENT BIPAP SETTING WELL, O2 SAT 98%, JEVITY AT 60CC/HR RUNNING VIA PEG TUBE , NO RESIDUAL NOTED, LANG DRINING TO GRAVITY WITH YELLOW CLEAR URINE, R UPPER ARM MIDLINE SITE CELAN , DRY AND INTACT WITH NS AT 75CC /HR RUNNING . SR UP X3, CALL LIGHT WITHIN EASY REACH, BED LOCKED AND IN LOWEST POSITION, CONTINUE TO MONITOR
[2018-10-17 07:59] LABS: BILIRUBIN,DIRECT 0.1 mg/dL (0.0-0.2); BILIRUBIN,TOTAL 0.4 mg/dL (0.2-1.0)
[2018-10-17] MEDS: MEROPENEM 1 G in IV NS 0.9% 100 ML IV SCH ×2 (08:35→20:32)
[2018-10-17] MEDS: MUPIROCIN OINT 2% 22 GM TUBE SCH ×2 (08:35→20:35)
[2018-10-17] MEDS: LACTOBACILLUS RHAMNOSUS GG 1 EACH CAP.SPRINK GT SCH ×2 (08:35→16:05)
--- NOTE | 2018-10-17 09:00 | NUR ---
RN NOTES DR. BEMRUDEZ NOTIFED REGARDING LA=2.6 , NO NEW ORDER GIVEN , CONTINUE TO MONITOR .
[2018-10-17] MEDS: FUROSEMIDE 40 MG/4 ML VIAL IV SCH ×3 (09:58→22:03)
--- NOTE | 2018-10-17 10:42 | NUR ---
SAHIL messaged [facility] and [facility] inquiring if pt. has any family. Per [facility], pt. has a cousin Johana Carrington in [place]. Her contact number is . SAHIL updated ICU COLLEEN Mullins with aforementioned information. Addendum: 10/17/18 at 1044 by SHAI BAXTER [facility] at [facility] can be reached at .
--- NOTE | 2018-10-17 11:00 | NUR ---
RN NOTES ORDER RECEIVED FOR INTUBATION FROM DR DELEON. ER MD NOTIFED . PT GOT INTUBATED BY ER DOCTOR, CONTINUE TO MONITOR .
[2018-10-17 11:17] LABS: ABG BASE EXCESS 3.6 mmol/L; ABG PCO2 45.1 mmHg (35.0-45.0); ABG PH 7.419 (7.350-7.450); ABG PO2 69.2 mmHg (75.0-100.0); COHb 0.2 % (0.5-1.5); MetHb 0.5 % (0.0-1.5); O2Hb 93.3 % (94.0-97.0); SITE, ABG Right Radial
--- NOTE | 2018-10-17 11:25 | NUR ---
RESIN FILTERER CALLED PT'S COUSIN JAME OVIEDO AT . INFORMED HER OF PT'S CONDITION. PT HAS NO FAMILY LOCALLY. WAS INFORMED BY MS HART THAT PT HAS A BROTHER IN LAW MIRA CHAVIRA, WHO WOULD BE MAKING ARRANGEMENTS FOR PT. NO DPOA WAS DESIGNATED BY PT. GEOVANI IN CHART.
[2018-10-17] MEDS: PROPOFOL 100 ML IV PRN (11:27)
--- NOTE | 2018-10-17 11:29 | NUR ---
PT ORALLY INTUBATED BY ER PHYSICIAN DR. BAXTER. PT INTUBATED WITH A 7.5 ETT AT 23CM AT THE LIP. VENT SETTINGS PER DR. DELEON. POSITIVE COLOR CHANGE ON CAPNOGRAPHY. VENT PLUGGED INTO RED OUTLET. AMBU BAG AT [facility]. VENT ALARMS SET AND AUDIBLE PER POLICY. Addendum: 10/17/18 at 1133 by MARISA RIDLEY RT Amended: Links added.
--- NOTE | 2018-10-17 11:36 | NUR ---
INSTRUMENT MAKER THE PHONE NUMBER FOR PT'S BROTHER IN LAW MIRA CHAVIRA IS .
[2018-10-17] MEDS ORDERED: ETOMIDATE 2 MG/ML VIAL IV ONE (13:06)
[2018-10-17] MEDS ORDERED: ROCURONIUM BROMIDE 50 MG/5 ML IV ONE (13:06)
[2018-10-17 14:49] LABS: ABG BASE EXCESS 9.6 mmol/L; ABG OXYGEN SATURATION 98.9 % (92.0-98.5); ABG PCO2 49.5 mmHg (35.0-45.0); ABG PH 7.462 (7.350-7.450); ABG PO2 262.7 mmHg (75.0-100.0); COHb 0.3 % (0.5-1.5); MetHb 0.8 % (0.0-1.5); O2Hb 97.8 % (94.0-97.0); PEEP,BG 5 cm H2O; SITE, ABG Right Radial
[2018-10-17] MEDS: VANCOMYCIN 1 GM in IV D5W 250 ML IV SCH (15:01)
--- NOTE | 2018-10-17 16:20 | NUR ---
RN NOTES DR LIPSCOMB NOTIFED REGARDING MED RECON .
[2018-10-17] MEDS: RIVASTIGMINE TARTRATE 1.5 MG CAPSULE GT SCH ×2 (16:51→20:32)
[2018-10-17] MEDS: ASPIRIN 81 MG TAB.CHEW GT SCH (16:51)
[2018-10-17] MEDS: JEVITY 1.2 CAL 1,000 ML BOTTLE GT PRN (17:50)
--- NOTE | 2018-10-17 18:13 | NUR ---
RN NOTS PT REMAINS INTUBATED AND SEDATED , VSS STABLE , TOLERATING TF AT 60CC/HR WELL, NO RESIDUAL NOTED. LANG DRINING TO GRAVITY, R UPPER ARM MIDLINE SITE CLEAN, DRY AND INTACT, WILL ENDORSE TO DRY FOLDER CLOTH NURSE FOR CONTINUITY OF CARE.
[2018-10-17] MEDS: ACETAMINOPHEN 325 MG TABLET PO PRN (19:37)
[2018-10-17] MEDS: VALPROIC ACID 250 MG/5 ML UDC GT SCH (19:37)
--- NOTE | 2018-10-17 20:17 | NUR ---
RECEIVED PT INTUBATED 7.5 ETT SECURED AT 23CM AT THE LIP VIA ANCHOR FAST. PT TOLERATING VENT SETTINGS. SX'D FOR MOD AMT OF THICK MAURO SECRETIONS. VENT ALARMS SET AND AUDIBLE. ETT CUFF ALTERNATIVE FINANCING SPECIALIST. VENT PLUGGED INTO RED OUTLET. AMBU BAG AT BEDSIDE. WILL CONTINUE TO MONITOR. Addendum: 10/17/18 at 2019 by JEANNETTE GAMEZ RT Amended: Links added.
[2018-10-17] MEDS: ENOXAPARIN SODIUM 40 MG/0.4 ML DISP.SYRIN SQ SCH (20:34)
[2018-10-18] VITALS (51 sets, daily range): BP systolic 90–167; BP diastolic 34–85
[2018-10-18 04:58] LABS: BASOPHILS # (AUTO) 0.1 /CMM (0.0-0.2); BASOPHILS % (AUTO) 0.5 % (0.0-2.0); EOSINOPHILS % (AUTO) 2.2 % (0.0-6.0); HEMATOCRIT 26 % (33-45); HEMOGLOBIN 8.5 g/dL (11.5-14.8); LYMPHOCYTES # (AUTO) 0.7 /CMM (0.8-4.8); LYMPHOCYTES % (AUTO) 5.6 % (20.0-44.0); MEAN CORPUSCULAR HGB CONC 33 g/dl (31.0-36.0); MEAN CORPUSCULAR VOLUME 81 fL (82-100); MONOCYTES # (AUTO) 1.1 /CMM (0.1-1.30); MONOCYTES % (AUTO) 9.2 % (2.0-12.0); NEUTROPHILS # (AUTO) 10.1 /CMM (1.8-8.9); NEUTROPHILS % (AUTO) 82.5 % (43.0-81.0); PLATELET COUNT (AUTO) 346 /CMM (150-450); RED BLOOD CELL COUNT(AUTO) 3.19 MIL/uL (4.0-5.2); WHITE BLOOD COUNT (AUTO) 12.3 K/uL (4.3-11.0)
[2018-10-18 05:19] LABS: CALCIUM, SERUM 8.2 mg/dL (8.5-10.1); CARBON DIOXIDE 34 mmol/L (21-32); CHLORIDE 98 mmol/L (98-107); CREATININE 0.8 mg/dL (0.6-1.3); GLUCOSE 142 mg/dL (74-106); MAGNESIUM 1.5 mg/dL (1.8-2.4); PHOSPHORUS 2.2 mg/dL (2.5-4.9); SODIUM SERUM 140 mmol/L (136-145); UREA NITROGEN, BLOOD 29 mg/dL (7-18)
[2018-10-18 05:34] LABS: POTASSIUM 2.8 mmol/L (3.5-5.1)
[2018-10-18] MEDS ORDERED: POTASSIUM CHLORIDE 20 MEQ POWDER PACKET GT ONE (06:00)
--- NOTE | 2018-10-18 07:00 | NUR ---
RN NOTES RECEIVED PT ON BED, SEDATED, ORALLY INTUBATED, TOLERATING CURRENT VENT SETTING WELL, ORAL AND ET SUCTIONING DONE , ON TELE SR HR IN 80'S , JEVITY AT 60CC /HR RUNNING VIA PEG TUBE , TOLERATING WELL, NO RESIDUAL NOTED , LANG DRINING TO GRAVITY, R UPPER ARM MIDLINE SITE CLEAN , DRY AND INTACT, SR UP x3, CALL LIGHT WITHIN EASY REACH, BED LOCKED AND IN LOWEST POSITION, CONTINUE TO MONITOR.
[2018-10-18] MEDS: RIVASTIGMINE TARTRATE 1.5 MG CAPSULE GT SCH ×2 (08:33→20:16)
[2018-10-18] MEDS: ASPIRIN 81 MG TAB.CHEW GT SCH (08:33)
[2018-10-18] MEDS: MEROPENEM 1 G in IV NS 0.9% 100 ML IV SCH (08:33)
[2018-10-18] MEDS: LEVOTHYROXINE SODIUM 75 MCG TABLET GT SCH (08:33)
[2018-10-18] MEDS: VALPROIC ACID 250 MG/5 ML UDC GT SCH ×3 (08:33→20:16)
[2018-10-18] MEDS: LACTOBACILLUS RHAMNOSUS GG 1 EACH CAP.SPRINK GT SCH ×2 (08:33→16:40)
[2018-10-18] MEDS: MUPIROCIN OINT 2% 22 GM TUBE SCH ×2 (08:34→20:16)
[2018-10-18 08:52] LABS: ABG BASE EXCESS 10.4 mmol/L; ABG OXYGEN SATURATION 96.1 % (92.0-98.5); ABG PCO2 38.6 mmHg (35.0-45.0); ABG PH 7.556 (7.350-7.450); ABG PO2 80.5 mmHg (75.0-100.0); AaDO2 232.6 mmHg; COHb 0.3 % (0.5-1.5); MetHb 0.6 % (0.0-1.5); O2Hb 95.2 % (94.0-97.0); PEEP,BG 5 cm H2O; SITE, ABG Right Radial; VT, ABG 500 mL
--- NOTE | 2018-10-18 08:57 | NUR ---
VENT CHANGES BELOW PER DR. DELEON: AC 14 VT 450 ML Addendum: 10/18/18 at 0858 by IRA TORRES RT Amended: Links added.
[2018-10-18] MEDS: VANCOMYCIN 1 GM in IV D5W 250 ML IV SCH (09:29)
--- NOTE | 2018-10-18 10:00 | NUR ---
RN NOTES LULI SANCHEZ NOTIFED REGARDING LA =2.4.
[2018-10-18] MEDS: PROPOFOL 100 ML IV PRN (11:14)
[2018-10-18] MEDS: Magnesium 1GM/D5W 100ML PREMIX 100 ML IV SCH ×2 (11:15→12:41)
[2018-10-18] MEDS ORDERED: NEUTRA PHOS 1 POWD.PACKET NG ONE (13:00)
[2018-10-18] MEDS: JEVITY 1.2 CAL 1,000 ML BOTTLE GT PRN (13:15)
--- NOTE | 2018-10-18 14:00 | NUR ---
RN NOTES FATHER KIM IS AT THE BEDSIDE TO SEE THE PT. PER PT'S FAMILY REQUEST .
--- NOTE | 2018-10-18 14:01 | NUR ---
SW received a social service consult from PAUL Hernández stating that family is requesting a electrical plumbing supervisor to see the pt. SAHIL contacted at and spoke with Sarah who informed SW Father Rancho will stop by to the see the pt. SAHIL contacted ICU and spoke with BRADLEY Turk who informed her she will relay the message to pt's BRADLEY Rodríguez.
[2018-10-18] MEDS: IV D5/ 0.9% NACL 1,000 ML IV PRN (15:19)
--- NOTE | 2018-10-18 18:00 | NUR ---
RN NOTES VSS STABLE, PT STILL INTUBATED, SEDATED, TOLERATING TF AT 60CC/HR WELL, D5NS AT 80 CC/HR RUNNING VIA R UPPER ARM MIDLINE , SR UP x3, BED LOCKED AND IN LOWEST POSITION, WILL ENDORSE TO MEDICAL RECORDS CODER NURSE FOR CONTINUITY OF CARE .
[2018-10-18] MEDS ORDERED: DOSING PER PHARMACY-AMIKACI IV XX PRN (19:30)
[2018-10-18] MEDS ORDERED: FEE PK DOSING 1 MIN EA MC ONE (19:44)
[2018-10-18] MEDS ORDERED: AMIKACIN 250 MG/ML VIAL IV SCH (20:00)
--- NOTE | 2018-10-18 20:00 | NUR ---
RN NOTES - RECEIVED PT ON BED, SEDATED, ORALLY INTUBATED, TOLERATING CURRENT VENT SETTING WELL, ORAL AND ET SUCTIONING DONE , ON TELE SR HR IN 80'S , JEVITY AT 60CC /HR RUNNING VIA PEG TUBE , TOLERATING WELL, NO RESIDUAL NOTED , LANG DRAINING TO GRAVITY, R UPPER ARM MIDLINE SITE CLEAN , DRY AND INTACT, SR UP x3, CALL LIGHT WITHIN EASY REACH, BED LOCKED AND IN LOWEST POSITION, CONTINUE TO MONITOR.
[2018-10-18] MEDS: ENOXAPARIN SODIUM 40 MG/0.4 ML DISP.SYRIN SQ SCH (20:16)
--- NOTE | 2018-10-18 20:20 | NUR ---
new wound noted on pts right buttocks, picture taken, new wound consult ordered
[2018-10-18] MEDS: AMIKACIN 300 MG in IV D5W 100 ML IV SCH (21:02)
[2018-10-19] VITALS (33 sets, daily range): BP systolic 104–137; BP diastolic 40–87
[2018-10-19] MEDS: VANCOMYCIN 1 GM in IV D5W 250 ML IV SCH ×2 (02:21→20:39)
[2018-10-19] MEDS: PROPOFOL 100 ML IV PRN ×3 (02:22→20:56)
[2018-10-19] MEDS: IV D5/ 0.9% NACL 1,000 ML IV PRN ×2 (03:57→16:36)
[2018-10-19 04:37] LABS: BASOPHILS # (AUTO) 0.1 /CMM (0.0-0.2); EOSINOPHILS % (AUTO) 4.7 % (0.0-6.0); HEMATOCRIT 25 % (33-45); HEMOGLOBIN 8.3 g/dL (11.5-14.8); LYMPHOCYTES # (AUTO) 0.7 /CMM (0.8-4.8); LYMPHOCYTES % (AUTO) 7.8 % (20.0-44.0); MEAN CORPUSCULAR HGB CONC 34 g/dl (31.0-36.0); MEAN CORPUSCULAR VOLUME 82 fL (82-100); NEUTROPHILS # (AUTO) 7.3 /CMM (1.8-8.9); NEUTROPHILS % (AUTO) 76.5 % (43.0-81.0); PLATELET COUNT (AUTO) 353 /CMM (150-450); RED BLOOD CELL COUNT(AUTO) 3.02 MIL/uL (4.0-5.2); WHITE BLOOD COUNT (AUTO) 9.6 K/uL (4.3-11.0)
[2018-10-19 04:46] LABS: CALCIUM, SERUM 7.9 mg/dL (8.5-10.1); CARBON DIOXIDE 33 mmol/L (21-32); CHLORIDE 100 mmol/L (98-107); CREATININE 0.7 mg/dL (0.6-1.3); GLUCOSE 153 mg/dL (74-106); MAGNESIUM 1.9 mg/dL (1.8-2.4); POTASSIUM 3.3 mmol/L (3.5-5.1); SODIUM SERUM 138 mmol/L (136-145); UREA NITROGEN, BLOOD 28 mg/dL (7-18)
--- NOTE | 2018-10-19 07:43 | NUR ---
WOUND CARE CONSULT: RECEIVED CONSULT FOR RT BUTTOCK WOUND. DEFER TO PLASTIC SURGERY TEAM FOR WOUND TREATMENT PLAN ,ALREADY ON CASE. WILL SEE PRN. PT ON ISOFLEX LOW AIRLOSS BED.
[2018-10-19] MEDS: LEVOTHYROXINE SODIUM 75 MCG TABLET GT SCH (07:59)
[2018-10-19] MEDS: VALPROIC ACID 250 MG/5 ML UDC GT SCH ×3 (07:59→20:13)
[2018-10-19 08:04] LABS: ABG BASE EXCESS 9.1 mmol/L; ABG OXYGEN SATURATION 93.4 % (92.0-98.5); ABG PCO2 43.1 mmHg (35.0-45.0); ABG PH 7.503 (7.350-7.450); COHb 0.1 % (0.5-1.5); MetHb 0.9 % (0.0-1.5); O2Hb 92.5 % (94.0-97.0); PEEP,BG 5 cm H2O; SITE, ABG Right Radial; VT, ABG 450 mL
[2018-10-19] MEDS: JEVITY 1.2 CAL 1,000 ML BOTTLE GT PRN (08:07)
[2018-10-19] MEDS: ASPIRIN 81 MG TAB.CHEW GT SCH (08:36)
[2018-10-19] MEDS: RIVASTIGMINE TARTRATE 1.5 MG CAPSULE GT SCH ×2 (08:36→20:14)
[2018-10-19] MEDS: LACTOBACILLUS RHAMNOSUS GG 1 EACH CAP.SPRINK GT SCH ×2 (08:36→16:10)
[2018-10-19] MEDS: MUPIROCIN OINT 2% 22 GM TUBE SCH ×2 (08:37→20:15)
--- NOTE | 2018-10-19 10:31 | NUR ---
RN NOTES 07-RECEIVED PATIENT FROM RN. PATIENT ORALLY INTUBATED, ON PROPFOL DRIP, ON AC MODE OF VENTILATION, THICK SECRETIONS SUCTIONED FROM ETT. 09-ON SEDATION VACATION, STARTED TO WAKE-UP, TRIGGERING VENT, TACHYCARDIC, TACHYPNEIC, DR. DELEON MADE AWARE.
[2018-10-19] MEDS: ACETAMINOPHEN 325 MG TABLET PO PRN (13:11)
[2018-10-19] MEDS: Z GUARD REMEDY 2 OZ OINT TP PRN (13:15)
--- NOTE | 2018-10-19 19:03 | NUR ---
RN NOTES 1400-APPEARS COMFORTABLE. SUCTIONING DONE VIA ETT, THICK SECRETIONS OBTAINED. 1600-VS WITHIN ACCEPTABLE RANGE. REMAINS ON AC MODE. 1900.NO SIGN OF PAIN. REPORT GVIEN TO RN FOR FURTHER CARE
--- NOTE | 2018-10-19 19:30 | NUR ---
ORACLE BPM DEVELOPER NOTE RECEIVED PT INTUBATED. [facility] WITH SETTINGS WELL TOLERATED AND SATURATING WELL. BREATHING UNLABORED. NOTED SLIGHTLY AGITATED AND RESTLESS. HOB ELEVATED AND ON ASPIRATION PRECAUTIONS. TELE-SR 70'S. ISOLATION PRECAUTIONS OBSERVED. BILATERAL SOFT WRIST RESTRAINTS IN PLACE. IV MACY MIDLINE CLEAN AND PATENT WITH FLUIDS INFUSING. GT IN PLACE AND FEEDING INFUSING WITHOUT RESIDUALS NOTED. LANG CATHETER IN PLACE AND DRAINING BY GRAVITY. WILL CONTINUE TO MONITOR.
--- NOTE | 2018-10-19 19:31 | NUR ---
RECEIVED PT ORALLY INTUBATED 7.5 ETT SECURED AT 22CM AT THE LIP VIA ANCHOR FAST. PT TOLERATING VENT SETTINGS. VENT ALARMS SET AND AUDIBLE. ETT CUFF EARLY CHILDHOOD TEACHER. VENT PLUGGED INTO RED OUTLET. AMBU BAG AT BEDSIDE. WILL CONTINUE TO MONITOR.
[2018-10-19] MEDS: AMIKACIN 300 MG in IV D5W 100 ML IV SCH (20:14)
[2018-10-19] MEDS: ENOXAPARIN SODIUM 40 MG/0.4 ML DISP.SYRIN SQ SCH (20:41)
[2018-10-20] VITALS (25 sets, daily range): BP systolic 106–143; BP diastolic 42–107
[2018-10-20] MEDS: PROPOFOL 100 ML IV PRN ×4 (02:19→23:59)
[2018-10-20] MEDS: JEVITY 1.2 CAL 1,000 ML BOTTLE GT PRN ×2 (03:20→17:59)
[2018-10-20 04:19] LABS: BASOPHILS # (AUTO) 0.1 /CMM (0.0-0.2); BASOPHILS % (AUTO) 0.6 % (0.0-2.0); EOSINOPHILS % (AUTO) 5.7 % (0.0-6.0); HEMATOCRIT 23 % (33-45); HEMOGLOBIN 7.9 g/dL (11.5-14.8); LYMPHOCYTES # (AUTO) 0.6 /CMM (0.8-4.8); LYMPHOCYTES % (AUTO) 7.5 % (20.0-44.0); MEAN CORPUSCULAR HGB CONC 34 g/dl (31.0-36.0); MEAN CORPUSCULAR VOLUME 82 fL (82-100); MONOCYTES # (AUTO) 0.8 /CMM (0.1-1.30); MONOCYTES % (AUTO) 9.8 % (2.0-12.0); NEUTROPHILS # (AUTO) 6.4 /CMM (1.8-8.9); NEUTROPHILS % (AUTO) 76.4 % (43.0-81.0); PLATELET COUNT (AUTO) 399 /CMM (150-450); RED BLOOD CELL COUNT(AUTO) 2.83 MIL/uL (4.0-5.2); WHITE BLOOD COUNT (AUTO) 8.4 K/uL (4.3-11.0)
[2018-10-20 04:33] LABS: CALCIUM, SERUM 7.9 mg/dL (8.5-10.1); CARBON DIOXIDE 31 mmol/L (21-32); CHLORIDE 105 mmol/L (98-107); CREATININE 0.6 mg/dL (0.6-1.3); GLUCOSE 98 mg/dL (74-106); POTASSIUM 3.4 mmol/L (3.5-5.1); SODIUM SERUM 142 mmol/L (136-145); UREA NITROGEN, BLOOD 23 mg/dL (7-18)
[2018-10-20] MEDS: IV D5/ 0.9% NACL 1,000 ML IV PRN ×2 (05:50→17:58)
--- NOTE | 2018-10-20 07:00 | NUR ---
RN NOTE RECEIVED PT ON BED, SEDATED , ORALLY INTUBATED, [facility], TOLERATING CURRENT VENT SETTING WELL, RESPIRATION EVEN AND UNLABORED, ON TELE SR HR IN 70'S , JEVITY AT 60CC/HR RUNNING VIA GT, TOLERATING WELL, NO RESIDUAL NOTED, ISOLATION PRECAUTIONS OBSERVED. BILATERAL SOFT WRIST RESTRAINTS IN PLACE FOR PT SAFETY, IV MACY MIDLINE SITE CLEAN, DRY AND INTACT, LANG DRINING TO GRAVITY , D5 NS AT 80CC /HR RUNNING VIA R UPPER ARM PICC LINE , SR UP x3, CALL LIGHT WITHIN EASY REACH, BED LOCKED AND IN LOWEST POSITION, CONTINUE TO MONITOR .
[2018-10-20] MEDS: LEVOTHYROXINE SODIUM 75 MCG TABLET GT SCH (08:11)
[2018-10-20] MEDS: VALPROIC ACID 250 MG/5 ML UDC GT SCH ×3 (08:12→20:54)
[2018-10-20] MEDS: ASPIRIN 81 MG TAB.CHEW GT SCH (08:12)
[2018-10-20] MEDS: MUPIROCIN OINT 2% 22 GM TUBE SCH ×2 (08:12→21:03)
[2018-10-20] MEDS: RIVASTIGMINE TARTRATE 1.5 MG CAPSULE GT SCH ×2 (08:12→20:54)
[2018-10-20] MEDS: LACTOBACILLUS RHAMNOSUS GG 1 EACH CAP.SPRINK GT SCH ×2 (08:12→16:21)
[2018-10-20 08:49] LABS: ABG BASE EXCESS 7.3 mmol/L; ABG OXYGEN SATURATION 96.5 % (92.0-98.5); ABG PCO2 46.6 mmHg (35.0-45.0); ABG PH 7.454 (7.350-7.450); ABG PO2 90.8 mmHg (75.0-100.0); AaDO2 140.8 mmHg; COHb 0.8 % (0.5-1.5); MetHb 0.8 % (0.0-1.5); SITE, ABG Right Femoral
[2018-10-20] MEDS ORDERED: POTASSIUM CHLORIDE 20 MEQ POWDER PACKET GT SCH (12:00)
--- NOTE | 2018-10-20 12:00 | NUR ---
RN NOTES TOLERATING TF WELL, VSS STABLE, ORAL AND ET SUCTIONING DONE , CONTINUE TO MONITOR.
--- NOTE | 2018-10-20 18:18 | NUR ---
RN NOTES PT REMAINS INTUBATED , SEDATED, ON TELE SR , LANG DRINING TO GRAVITY, NO TUBE FEEDING RESIDUAL NOTED, D5NS AT 80CC /HR RUNNING VIA R UPPER ARM MIDLINE, SITE CLEAN , DRY AND INTACT, NO SIGNIFICANT CHANGES NOTED ON THIS SHIFT, WILL ENDORSE TO DRAINMAN NURSE FOR CONTINUITY OF CARE .
--- NOTE | 2018-10-20 19:53 | NUR ---
RECEIVED PT ORALLY INTUBATED 7.5 ETT SECURED AT 22CM AT THE LIP VIA ANCHOR FAST. PT TOLERATING VENT SETTINGS. PT IS SEDATED .VENT ALARMS SET AND AUDIBLE. ETT CUFF HYDROGEOLOGY PROFESSOR. VENT PLUGGED INTO RED OUTLET. AMBU BAG AT BEDSIDE. WILL CONTINUE TO MONITOR.
[2018-10-20] MEDS: VANCOMYCIN 1 GM in IV D5W 250 ML IV SCH (21:01)
[2018-10-20] MEDS: AMIKACIN 300 MG in IV D5W 100 ML IV SCH (21:02)
[2018-10-20] MEDS: ENOXAPARIN SODIUM 40 MG/0.4 ML DISP.SYRIN SQ SCH (21:02)
[2018-10-21] VITALS (27 sets, daily range): BP systolic 100–165; BP diastolic 33–102
[2018-10-21] MEDS ORDERED: LACTULOSE 10 G/15 ML UDC (PYXIS) PO PRN (04:00)
[2018-10-21] MEDS ORDERED: NA PHOS,M-B/NA PHOS,DI-BA 1 EA ENEMA RC PRN (04:00)
--- NOTE | 2018-10-21 04:00 | NUR ---
MEDICAL LEGAL INVESTIGATOR NOTE NOTIFIED DEL TUBER MACHINE OPERATOR HELPER NOTED PT WITH DISTENDED ABDOMEN. WITH ORDERS TO DO KUB, ADD LACTULOSE AND FLEETS ENEMA PRN. ORDERS NOTED AND CARRIED OUT.
[2018-10-21 05:10] LABS: BASOPHILS # (AUTO) 0.1 /CMM (0.0-0.2); BASOPHILS % (AUTO) 0.6 % (0.0-2.0); EOSINOPHILS % (AUTO) 3.4 % (0.0-6.0); HEMATOCRIT 23 % (33-45); HEMOGLOBIN 7.8 g/dL (11.5-14.8); LYMPHOCYTES # (AUTO) 0.7 /CMM (0.8-4.8); LYMPHOCYTES % (AUTO) 6.9 % (20.0-44.0); MEAN CORPUSCULAR HGB CONC 34 g/dl (31.0-36.0); MEAN CORPUSCULAR VOLUME 82 fL (82-100); MONOCYTES # (AUTO) 0.8 /CMM (0.1-1.30); MONOCYTES % (AUTO) 8.2 % (2.0-12.0); NEUTROPHILS # (AUTO) 8.1 /CMM (1.8-8.9); NEUTROPHILS % (AUTO) 80.9 % (43.0-81.0); PLATELET COUNT (AUTO) 462 /CMM (150-450); RED BLOOD CELL COUNT(AUTO) 2.83 MIL/uL (4.0-5.2)
[2018-10-21 05:23] LABS: CALCIUM, SERUM 7.8 mg/dL (8.5-10.1); CARBON DIOXIDE 31 mmol/L (21-32); CHLORIDE 106 mmol/L (98-107); CREATININE 0.7 mg/dL (0.6-1.3); GLUCOSE 123 mg/dL (74-106); POTASSIUM 4.3 mmol/L (3.5-5.1); SODIUM SERUM 142 mmol/L (136-145); UREA NITROGEN, BLOOD 20 mg/dL (7-18)
[2018-10-21] MEDS: IV D5/ 0.9% NACL 1,000 ML IV PRN ×2 (06:23→19:53)
[2018-10-21] MEDS: JEVITY 1.2 CAL 1,000 ML BOTTLE GT PRN (06:23)
[2018-10-21] MEDS: PROPOFOL 100 ML IV PRN ×3 (06:25→22:39)
--- NOTE | 2018-10-21 07:00 | NUR ---
RN NOTES RECEIVED PT ORALLY INTUBATED, SEDATED, TOLERATING CURRENT VENT SETTING WELL, HR IN 50'S, LANG DRINING TO GRAVITY , JEVITY AT 60CC/HR RUNNING VIA GT , TOLEIANG WELL , NO RESIDUAL NOTED, D5NS RUNNING AT 80CC/HR VIA R UPPER ARM MIDLINE , SITE CLEAN, DRY AND INTACT, SR UP x3, CALL LIGHT WITHIN EASY REACH, BED LOCKED AND IN LOWEST POSITION, CONTINUE TO MONITOR .
--- NOTE | 2018-10-21 07:35 | NUR ---
ELECTROCARDIOGRAPHIC TECHNICIAN NOTE PT REMAINED STABLE DURING SHIFT. NO ACUTE DISTRESS NOTED. VENT SETTINGS WELL TOLERATED. ALL NEEDS ATTENDED TO PROMPTLY. SUCTIONED NEEDED. REPOSITIONED Q2H. ISOLATION PRECAUTIONS OBSERVED. WILL ENDORSE TO NEXT SHIFT FOR CONTINUITY OF CARE.
[2018-10-21] MEDS: LEVOTHYROXINE SODIUM 75 MCG TABLET GT SCH (08:05)
[2018-10-21] MEDS: VALPROIC ACID 250 MG/5 ML UDC GT SCH ×3 (08:05→20:27)
[2018-10-21] MEDS: LACTOBACILLUS RHAMNOSUS GG 1 EACH CAP.SPRINK GT SCH ×2 (08:05→16:27)
[2018-10-21] MEDS: ASPIRIN 81 MG TAB.CHEW GT SCH (08:06)
[2018-10-21] MEDS: RIVASTIGMINE TARTRATE 1.5 MG CAPSULE GT SCH ×2 (08:06→20:27)
[2018-10-21] MEDS: MUPIROCIN OINT 2% 22 GM TUBE SCH ×2 (08:07→20:27)
[2018-10-21 08:30] LABS: ABG BASE EXCESS 5.1 mmol/L; ABG OXYGEN SATURATION 96.6 % (92.0-98.5); ABG PCO2 42.8 mmHg (35.0-45.0); ABG PH 7.456 (7.350-7.450); ABG PO2 89.4 mmHg (75.0-100.0); AaDO2 146.6 mmHg; COHb 0.7 % (0.5-1.5); MetHb 0.6 % (0.0-1.5); O2Hb 95.3 % (94.0-97.0); PEEP,BG 8 cm H2O; SITE, ABG Right Radial; VENT MODE, BG AC 14 450 40% +8; VT, ABG 450 mL
--- NOTE | 2018-10-21 12:00 | NUR ---
RN NOTES ORAL AND ET TUBE SUCTIONING DONE , PT TURNED AND REPOSITIONED, O2 SAT 98%, CONTINUE TO MONITOR .
--- NOTE | 2018-10-21 14:00 | NUR ---
RN NOTES LARGE AMOUNT OF SEMI FORM STOOL NOTED, VSS STABLE , CONTINUE TO MONITOR.
--- NOTE | 2018-10-21 18:00 | NUR ---
RN NOTES PT STILL INTUBATED, SEDATED , NO TF RESIDUAL NOTED ON THIS SHIFT, VSS STABLE, WILL ENDOSE TO SPLITTER OPERATOR NURSE FOR CONTINUITY OF CARE .
[2018-10-21] MEDS: AMIKACIN 350 MG in IV D5W 100 ML IV SCH (20:27)
[2018-10-21] MEDS: ENOXAPARIN SODIUM 40 MG/0.4 ML DISP.SYRIN SQ SCH (20:28)
[2018-10-21] MEDS: VANCOMYCIN 1 GM in IV D5W 250 ML IV SCH (20:45)
[2018-10-22] VITALS (30 sets, daily range): BP systolic 109–153; BP diastolic 39–61
--- NOTE | 2018-10-22 01:11 | NUR ---
RT NOTE pt rec'd orally intubated via ETT sz #7.5 secured @ 22CM at the lip line. pt on noted [facility] vent settings per md orders. no resp distress or sob noted. sx'd for small amt of pale yellow secretions. alarms are set and audible. vent plugged into red outlet. ambu bag bedside. will continue to monitor. Addendum: 10/22/18 at 0112 by JAMIE TIMMONS RT Amended: Links added.
[2018-10-22] MEDS: JEVITY 1.2 CAL 1,000 ML BOTTLE GT PRN ×2 (01:56→17:09)
[2018-10-22 04:53] LABS: BASOPHILS # (AUTO) 0.1 /CMM (0.0-0.2); BASOPHILS % (AUTO) 0.9 % (0.0-2.0); EOSINOPHILS % (AUTO) 3.6 % (0.0-6.0); HEMATOCRIT 22 % (33-45); HEMOGLOBIN 7.2 g/dL (11.5-14.8); LYMPHOCYTES # (AUTO) 0.8 /CMM (0.8-4.8); LYMPHOCYTES % (AUTO) 9.4 % (20.0-44.0); MEAN CORPUSCULAR HGB CONC 33 g/dl (31.0-36.0); MEAN CORPUSCULAR VOLUME 83 fL (82-100); MONOCYTES # (AUTO) 0.6 /CMM (0.1-1.30); NEUTROPHILS % (AUTO) 79.1 % (43.0-81.0); PLATELET COUNT (AUTO) 454 /CMM (150-450); RED BLOOD CELL COUNT(AUTO) 2.66 MIL/uL (4.0-5.2); WHITE BLOOD COUNT (AUTO) 8.9 K/uL (4.3-11.0)
[2018-10-22 05:07] LABS: CALCIUM, SERUM 7.9 mg/dL (8.5-10.1); CARBON DIOXIDE 31 mmol/L (21-32); CHLORIDE 107 mmol/L (98-107); CREATININE 0.6 mg/dL (0.6-1.3); GLUCOSE 117 mg/dL (74-106); POTASSIUM 4.1 mmol/L (3.5-5.1); SODIUM SERUM 143 mmol/L (136-145); UREA NITROGEN, BLOOD 20 mg/dL (7-18)
[2018-10-22] MEDS: PROPOFOL 100 ML IV PRN ×3 (06:16→22:37)
--- NOTE | 2018-10-22 07:00 | NUR ---
RN NOTES RECEIVED PT ON BED, INTUBATED, SEDATED, TOLERATING VENT SETTING WELL, ET TUBE SUCTIONING DONE, ON TELE SR HR IN 80'S , LANG DRAINING TO GRAVITY WITH YELLOW CLEAR URINE, TF JEVITY AT 60CC/HR RUNNING VIA GT , D5NS AT 80 CC /HR RUNNING VIA R UPPER ARM PICC LINE, SR UP x3, CALL LIGHT WITHIN EASY REACH, BED LOCKED AND IN LOWEST POSITION, CONTINUE TO MONITOR .
[2018-10-22] MEDS: IV D5/ 0.9% NACL 1,000 ML IV PRN (07:55)
[2018-10-22] MEDS: VALPROIC ACID 250 MG/5 ML UDC GT SCH ×3 (08:00→20:28)
[2018-10-22] MEDS: ASPIRIN 81 MG TAB.CHEW GT SCH (08:00)
[2018-10-22] MEDS: RIVASTIGMINE TARTRATE 1.5 MG CAPSULE GT SCH ×2 (08:00→20:28)
[2018-10-22] MEDS: LACTOBACILLUS RHAMNOSUS GG 1 EACH CAP.SPRINK GT SCH ×2 (08:00→17:09)
[2018-10-22] MEDS: LEVOTHYROXINE SODIUM 75 MCG TABLET GT SCH (08:00)
[2018-10-22] MEDS: MUPIROCIN OINT 2% 22 GM TUBE SCH ×2 (08:01→20:30)
--- NOTE | 2018-10-22 12:00 | NUR ---
RN NOTES ORAL AND ET TUBE SUCTIONING DONE, VSS STABLE ,CONTINUE TO MONITOR .
[2018-10-22 17:59] LABS: HEMOGLOBIN 7.8 g/dL (11.5-14.8)
--- NOTE | 2018-10-22 18:19 | NUR ---
RN NOTES PT STILL INTUBATED AND SEDATED, ON DIPRIVAN AT 35 MCG/KG/ MIN AT THIS TIME, NO TF RESIDUAL NOTED, LANG DRINING TO GRAVITY, SR UP x3, NO SINGICNAT CHANGES NOTED ON THIS SHIFT , WILL ENDOSE TO MANDARIN TEACHER NURSE FOR CONTIGUITY OF CARE .
--- NOTE | 2018-10-22 18:36 | NUR ---
RN NOTES LULI SANCHEZ NOTIFED REGARDING H/H 7.12/24,
[2018-10-22] MEDS: AMIKACIN 350 MG in IV D5W 100 ML IV SCH (20:28)
[2018-10-22] MEDS: VANCOMYCIN 1 GM in IV D5W 250 ML IV SCH (20:29)
[2018-10-22] MEDS: ENOXAPARIN SODIUM 40 MG/0.4 ML DISP.SYRIN SQ SCH (20:29)
[2018-10-23] VITALS (27 sets, daily range): BP systolic 110–163; BP diastolic 38–73
[2018-10-23 04:58] LABS: BASOPHILS # (AUTO) 0.1 /CMM (0.0-0.2); BASOPHILS % (AUTO) 0.7 % (0.0-2.0); LYMPHOCYTES # (AUTO) 0.8 /CMM (0.8-4.8); LYMPHOCYTES % (AUTO) 9.3 % (20.0-44.0); MEAN CORPUSCULAR HGB CONC 34 g/dl (31.0-36.0); MEAN CORPUSCULAR VOLUME 82 fL (82-100); MONOCYTES # (AUTO) 0.6 /CMM (0.1-1.30); MONOCYTES % (AUTO) 7.4 % (2.0-12.0); NEUTROPHILS # (AUTO) 6.9 /CMM (1.8-8.9); NEUTROPHILS % (AUTO) 78.6 % (43.0-81.0); PLATELET COUNT (AUTO) 456 /CMM (150-450); RED BLOOD CELL COUNT(AUTO) 2.39 MIL/uL (4.0-5.2); WHITE BLOOD COUNT (AUTO) 8.7 K/uL (4.3-11.0)
[2018-10-23 05:08] LABS: CALCIUM, SERUM 7.9 mg/dL (8.5-10.1); CARBON DIOXIDE 33 mmol/L (21-32); CHLORIDE 106 mmol/L (98-107); CREATININE 0.7 mg/dL (0.6-1.3); GLUCOSE 106 mg/dL (74-106); POTASSIUM 4.2 mmol/L (3.5-5.1); SODIUM SERUM 142 mmol/L (136-145); UREA NITROGEN, BLOOD 22 mg/dL (7-18)
[2018-10-23 05:23] LABS: HEMATOCRIT 20 % (33-45)
[2018-10-23 05:25] LABS: HEMOGLOBIN 6.6 g/dL (11.5-14.8)
--- NOTE | 2018-10-23 05:41 | NUR ---
RN RECEIVED CRITICAL LAB RESULT, HEMOGLOBIN 6.6, SPOKE TO DEL BURCH CANAL BOAT OPERATOR, WITH NEW ORDER TO TRANSFUSE 1 UNIT PRBC, CALLED FAMILY MEMBER JAME OVIEDO, PHONE CONSENT FOR BLOOD TRANSFUSION OBTAINED, WITNESSED BY ED, CHARGE NURSE. LAB CALLED.
[2018-10-23 05:45] LABS: EOSINOPHILS % (MANUAL) 2 % (0-4); LYMPHOCYTES % (MANUAL) 9 % (16-48); MONOCYTES % (MANUAL) 5 % (0-11.0); NEUTROPHILS % (MANUAL) 84 (42-76)
[2018-10-23] MEDS: MORPHINE SULFATE INJ 2 MG/ML DISP.SYRIN IM PRN ×4 (07:36→20:22)
[2018-10-23] MEDS: LEVOTHYROXINE SODIUM 75 MCG TABLET GT SCH (07:37)
[2018-10-23] MEDS: VALPROIC ACID 250 MG/5 ML UDC GT SCH ×3 (07:38→19:29)
[2018-10-23] MEDS: LACTOBACILLUS RHAMNOSUS GG 1 EACH CAP.SPRINK GT SCH ×2 (09:38→16:07)
[2018-10-23] MEDS: PANTOPRAZOLE 40 MG/PACK PACK GT SCH ×2 (09:38→20:22)
[2018-10-23] MEDS: RIVASTIGMINE TARTRATE 1.5 MG CAPSULE GT SCH ×2 (09:39→20:22)
[2018-10-23] MEDS: MUPIROCIN OINT 2% 22 GM TUBE SCH ×2 (09:39→20:22)
[2018-10-23] MEDS: ASPIRIN 81 MG TAB.CHEW GT SCH (09:39)
--- NOTE | 2018-10-23 18:45 | NUR ---
PT RECEIVED ONE UNIT OF PRBC TOLERATD WELL.NO S/S OF REACTION NOTED,VITAL SIGN WITHIN NORMAL RANGE
--- NOTE | 2018-10-23 20:22 | NUR ---
RN NOTE S/S OF PAIN NOTED, MOANING, RESTLESS, BP OF 158/78 NOTED, ADMINISTERED MORPHINE 2 MG IV
[2018-10-23] MEDS: AMIKACIN 350 MG in IV D5W 100 ML IV SCH (21:35)
[2018-10-23] MEDS: PROPOFOL 100 ML IV PRN (22:55)
[2018-10-24] VITALS (24 sets, daily range): BP systolic 126–154; BP diastolic 43–98
[2018-10-24 05:08] LABS: CALCIUM, SERUM 8.2 mg/dL (8.5-10.1); CARBON DIOXIDE 32 mmol/L (21-32); CHLORIDE 105 mmol/L (98-107); CREATININE 0.6 mg/dL (0.6-1.3); GLUCOSE 100 mg/dL (74-106); POTASSIUM 4.3 mmol/L (3.5-5.1); SODIUM SERUM 141 mmol/L (136-145); UREA NITROGEN, BLOOD 23 mg/dL (7-18)
[2018-10-24 05:09] LABS: BASOPHILS # (AUTO) 0.1 /CMM (0.0-0.2); BASOPHILS % (AUTO) 0.9 % (0.0-2.0); EOSINOPHILS % (AUTO) 4.4 % (0.0-6.0); HEMATOCRIT 26 % (33-45); HEMOGLOBIN 8.8 g/dL (11.5-14.8); LYMPHOCYTES % (AUTO) 11.5 % (20.0-44.0); MEAN CORPUSCULAR HGB CONC 34 g/dl (31.0-36.0); MEAN CORPUSCULAR VOLUME 81 fL (82-100); MONOCYTES # (AUTO) 0.7 /CMM (0.1-1.30); NEUTROPHILS # (AUTO) 6.5 /CMM (1.8-8.9); NEUTROPHILS % (AUTO) 75.2 % (43.0-81.0); PLATELET COUNT (AUTO) 496 /CMM (150-450); RED BLOOD CELL COUNT(AUTO) 3.19 MIL/uL (4.0-5.2); WHITE BLOOD COUNT (AUTO) 8.6 K/uL (4.3-11.0)
--- NOTE | 2018-10-24 08:00 | NUR ---
ICU/RN AM SHIFT INITIAL NOTES RECEIVED PT ASLEEP IN BED, EASILY AROUSED, ALERT ABLE TO ANSWER SIMPLE QUESTIONS BY NODDING, DENIES PAIN, NO ACUTE CHANGE OF CONDITION NOTED, PT WITH LOW TEMP, ON HEATING BLANKET. ON BI-PAP, RATES SET PRESCRIBED, SATURATING @ 100%, LUNG SOUNDS DIMINISHED, RESPIRATIONS EVEN & UNLABORED. ON TELE WITH SINUS RHYTHM. MIDLINE WITH ON GOING INFUSION OF D5NS @ 75CC/HR, PATENT, NO S/S OF INFECTION. NGT FEEDING ON GOING @ 30CC/HR, FLUSHED, PATENT WITH NO S/S OF GASTRIC RESIDUAL. LANG CATHETER INTACT WITH YELLOW URINE OUTPUT. BILATERAL SOFT WRIST RESTRAINTS IN PLACED, REMOVED TO CHECK FOR CIRCULATION AND COMFORT THEN PLACED BACK. PT IS COMFORTABLE AT THIS TIME, SCHEDULED AM MEDS TO BE GIVEN. CL WITHIN REACHED AND SAFETY MAINTAINED. ON GOING MONITORING. Addendum: 10/24/18 at 1057 by JOSE MARTIN HONG RN ERROR: DOCUMENTED TO WRONG PATIENT.
--- NOTE | 2018-10-24 08:00 | NUR ---
ICU/RN AM SHIFT INITIAL NOTES RECEIVED PT ASLEEP IN BED, PT SEDATED, NO ACUTE CHANGE OF CONDITION, OR GRIMACING NOTED, ORALLY INTUBATED 7.5 ETT SECURED AT 22CM AT THE LIP, VENT RATES SET PRESCRIBED, SATURATING @ 94%, RESPIRATIONS EVEN & UNLABORED, ON TELE WITH SINUS FIORELLA, HR 53. PICC LINE WITH ON GOING INFUSION OF PROPOFOL @ 30MCG/KG/MIN, LINE PATENT WITH POSITIVE BLOOD RETURN, FLUSHED. GT WITH ON GOING @ 60CC/HR, NO GASTRIC RESIDUAL NOTED, FLUSHED. LANG CATHETER INTACT WITH YELLOW URINE OUTPUT. BILATERAL SOFT WRIST RESTRAINTS IN PLACED, REMOVED TO CHECK FOR CIRCULATION AND COMFORT THEN PLACED BACK. PT IS COMFORTABLE AT THIS TIME, SCHEDULED AM MEDS TO BE GIVEN. CL WITHIN REACHED, SAFETY MAINTAINED AND ISOLATION OBSERVED. ON GOING MONITORING.
[2018-10-24] MEDS: MUPIROCIN OINT 2% 22 GM TUBE SCH ×2 (08:41→20:15)
[2018-10-24] MEDS: VALPROIC ACID 250 MG/5 ML UDC GT SCH ×3 (08:41→20:14)
[2018-10-24] MEDS: LACTOBACILLUS RHAMNOSUS GG 1 EACH CAP.SPRINK GT SCH ×2 (08:41→16:34)
[2018-10-24] MEDS: PANTOPRAZOLE 40 MG/PACK PACK GT SCH ×2 (08:41→20:14)
[2018-10-24] MEDS: LEVOTHYROXINE SODIUM 75 MCG TABLET GT SCH (08:41)
[2018-10-24] MEDS: RIVASTIGMINE TARTRATE 1.5 MG CAPSULE GT SCH ×2 (08:41→20:14)
[2018-10-24] MEDS: ASPIRIN 81 MG TAB.CHEW GT SCH (08:41)
[2018-10-24] MEDS: PROPOFOL 100 ML IV PRN ×2 (08:42→16:33)
--- NOTE | 2018-10-24 12:00 | NUR ---
ICU/RN NOON ROUNDS PT REPOSITIONED, MOUTH CARE PROVIDED. NO ACUTE CHANGE OF CONDITION. MONITORING CONTINUED.
[2018-10-24] MEDS: JEVITY 1.2 CAL 1,000 ML BOTTLE GT PRN (15:27)
--- NOTE | 2018-10-24 17:30 | NUR ---
ICU/RN AFTERNOON ROUNDS PM CARE PROVIDED, NO ACUTE CHANGE OF CONDITION. ON GOING INFUSION OF PROPOFOL. MONITORING CONTINUED.
--- NOTE | 2018-10-24 19:26 | NUR ---
ICU/RN AM SHIFT END NOTES ALL NEEDS MET. NO ACUTE CHANGE OF CONDITION NOTED DURING THE SHIFT. PT ENDORSED TO PM NURSE TO CONTINUE CARE. SAFETY MAINTAINED.
--- NOTE | 2018-10-24 19:55 | NUR ---
PUMP RUNNER OPENING NOTES RECEIVED REPORT FROM ANNE MARIE HUERTA. PATIENT SEDATED, BREATHING EVEN & UNLABORED W/ ETT IN PLACE & TOLERATING VENT SETTINGS AC 14, TV 450, FIO2 40%, PEEP 8. SATING WELL @ 98%, NO RESPIRATORY DISTRESS NOTED. ON TELE W/ SINUS RHYTHM, HR 70S. RIGHT UPPER ARM PICC LINE INTACT & PATENT W/ DRESSING CDI, SALINE LOCKED. G-TUBE IN PLACE & FLUSHING WELL W/ 50ML RESIDUAL & GTF JEVITY RUNNING @ 60 ML/HR. LANG CATH DRAINING YELLOW URINE. NO S/S OF PAIN OR DISCOMFORT @ THIS TIME. SAFETY MEASURES IN PLACE W/ SIDE RAILS UP & BED ALARM ON. HOB ELEVATED FOR ASPIRATION PRECAUTIONS. WILL CONTINUE TO MONITOR CLOSELY.
[2018-10-24] MEDS ORDERED: AMIKACIN 500 MG in IV D5W 100 ML IV SCH (21:00)
[2018-10-25] VITALS (18 sets, daily range): BP systolic 101–158; BP diastolic 49–108
[2018-10-25] MEDS: PROPOFOL 100 ML IV PRN (02:51)
[2018-10-25 04:13] LABS: BASOPHILS # (AUTO) 0.1 /CMM (0.0-0.2); BASOPHILS % (AUTO) 1.3 % (0.0-2.0); EOSINOPHILS % (AUTO) 3.9 % (0.0-6.0); HEMATOCRIT 25 % (33-45); HEMOGLOBIN 8.3 g/dL (11.5-14.8); LYMPHOCYTES # (AUTO) 0.8 /CMM (0.8-4.8); LYMPHOCYTES % (AUTO) 10.1 % (20.0-44.0); MEAN CORPUSCULAR HGB CONC 33 g/dl (31.0-36.0); MEAN CORPUSCULAR VOLUME 81 fL (82-100); MONOCYTES # (AUTO) 0.7 /CMM (0.1-1.30); MONOCYTES % (AUTO) 8.9 % (2.0-12.0); NEUTROPHILS # (AUTO) 5.7 /CMM (1.8-8.9); NEUTROPHILS % (AUTO) 75.8 % (43.0-81.0); PLATELET COUNT (AUTO) 468 /CMM (150-450); RED BLOOD CELL COUNT(AUTO) 3.04 MIL/uL (4.0-5.2); WHITE BLOOD COUNT (AUTO) 7.6 K/uL (4.3-11.0)
[2018-10-25 04:24] LABS: CARBON DIOXIDE 32 mmol/L (21-32); CHLORIDE 105 mmol/L (98-107); CREATININE 0.6 mg/dL (0.6-1.3); GLUCOSE 115 mg/dL (74-106); POTASSIUM 4.1 mmol/L (3.5-5.1); SODIUM SERUM 142 mmol/L (136-145); UREA NITROGEN, BLOOD 24 mg/dL (7-18)
--- NOTE | 2018-10-25 07:15 | NUR ---
LATHE OPERATOR CONTACT LENS CLOSING NOTES PATIENT RESTING COMFORTABLY IN BED, STILL SEDATED W/ NO RESPIRATORY OR CARDIAC DISTRESS. DIPRIVAN DRIP CONTINUED @ 30 MCG/HR. NO SIGNIFICANT CHANGES OVERNIGHT. ALL OTHER DUE MEDS GIVEN & PATIENT CARE DONE. WILL ENDORSE ARNOL TO AM NURSE.
--- NOTE | 2018-10-25 07:26 | NUR ---
ONCOLOGY REP SPECIALIST OPENING NOTES RECEIVED REPORT FROM JENELLE HUERTA. PATIENT SEDATED, BREATHING EVEN & UNLABORED W/ ETT IN PLACE & TOLERATING VENT SETTINGS WELL.O2 SAT 98%.WITH DIPRIVAN. NO RESPIRATORY DISTRESS NOTED. ON MONITOR SINUS RHYTHM, HR 62. RIGHT UPPER ARM PICC LINE INTACT & PATENT W/ DRESSING CDI, SALINE LOCKED. G-TUBE IN PLACE & FLUSHING WELL W/ 50ML RESIDUAL & GTF JEVITY RUNNING @ 60 ML/HR. LANG CATH DRAINING YELLOW URINE. NO S/S OF PAIN OR DISCOMFORT @ THIS TIME. SAFETY MEASURES IN PLACE W/ SIDE RAILS UP & BED ALARM ON. HOB ELEVATED FOR ASPIRATION PRECAUTIONS. WILL CONTINUE TO MONITOR .
[2018-10-25] MEDS: LACTOBACILLUS RHAMNOSUS GG 1 EACH CAP.SPRINK GT SCH (08:14)
[2018-10-25] MEDS: RIVASTIGMINE TARTRATE 1.5 MG CAPSULE GT SCH (08:14)
[2018-10-25] MEDS: LEVOTHYROXINE SODIUM 75 MCG TABLET GT SCH (08:14)
[2018-10-25] MEDS: VALPROIC ACID 250 MG/5 ML UDC GT SCH (08:14)
[2018-10-25] MEDS: PANTOPRAZOLE 40 MG/PACK PACK GT SCH (08:14)
[2018-10-25] MEDS: ASPIRIN 81 MG TAB.CHEW GT SCH (08:14)
[2018-10-25] MEDS: MUPIROCIN OINT 2% 22 GM TUBE SCH (08:14)
--- NOTE | 2018-10-25 08:50 | NUR ---
MECHANICAL INSULATOR NOTE GOT CALL FROM JAME NASCIMENTO,SHE WANT TO TALK TO DOCTOR DELEON REGARDING PATIENT CARE.TOLD THAT I WILL LET KNOW AND WILL GIVE YOU A CALL BACK.
--- NOTE | 2018-10-25 09:14 | NUR ---
AUTO PARTS MANAGER NOTE SEEN BY ,UPDATED ABOUT PATIENT FAMILY REQUEST TO CALL .DOCTOR SPOKE TO JAME NASCIMENTO ON PHONE,HANDED OVER TO RN,SPOKE TO COUSIN JAME. PER HER SHE CANT COME AND VISIT THE PATIENT AND NO FAMILY MEMBERS TO COME AND VISIT PATIENT TOO.ON;Y BROTHER IN [facility] LIVES IN [place] NOT ABLE TO COME DUE TO HEALTH CONDITION AND AGE,HIS KIDS NOT INTERESTED.TO CALL HER ONCE SHE AND SHE WILL CALL PATIENTS BROTHER IN [facility],FROM [place]#[phone] AND HE WILL ARRANGE ALL THAT SHE NEED.
[2018-10-25] MEDS ORDERED: MORPHINE SULFATE 30 MG in IV NS 0.9% 28 ML, PCA TOTAL VOLUME 1 BAG IV PRN ×3 (10:30)
[2018-10-25] MEDS ORDERED: LORAZEPAM INJ 2 MG/ML VIAL IV ONE (10:30)
[2018-10-25] MEDS ORDERED: MORPHINE SULFATE INJ 4 MG/ML DISP.SYRIN IV ONE (10:30)
--- NOTE | 2018-10-25 10:36 | NUR ---
WARRANTY ADMINISTRATOR NOTE SEEN BY GOT AN ORDER TO OFF PROPOFOL.PATIENT OFF FRO PROPOFOL @0915.PATIENT BECAME RESTLESS RR AND HR AND BP ELEVATED, MADE AWARE.GOT NEW ORDER FOR ATIVAN ,MORPHINE NOW AND TO START ON MORPHINE DRIP ,EXTUBATE 1 HR AFTER THE MORPHINE DRIP STARTED.PATIENT IS CLAM AFTER ATIVAN AND MORPHINE.
--- NOTE | 2018-10-25 13:45 | NUR ---
VINE FRUIT FARMING SUPERVISOR NOTE PATIENT EXTUBATED,RT AT BEDSIDE.SUCTIONED AND ON OXYGEN AND MORPHINE DRIP FOR COMFORT .
[2018-10-25] MEDS: LORAZEPAM INJ 2 MG/ML VIAL IV PRN ×2 (13:47→14:58)
[2018-10-25] MEDS ORDERED: DC PROPOFOL WHEN EXTUBATED XX PRN (14:00)
--- NOTE | 2018-10-25 18:31 | NUR ---
BONE PROCESS OPERATOR PATIENT NOTE PATIENT PRONOUNCED 1740,BY CHARGE NURSE TYLER AND RN ROSA.MONITOR SHOWS ASYSTOLE.CYBER CRIME INVESTIGATOR GUSTAVO GALLAGHER MADE AWARE.SPOKE TO COUSIN JAME,MADE AWARE ABOUT PATIENT .SHE TOLD SHE WILL CALL BROTHER IN [place] AND WILL ARRANGE MORTUARY.MADE HER AWARE WE WILL TRANSFER PATIENT BODY TO [facility] AND MORTUARY PEOPLE CAN PROJECT MANAGEMENT INSTRUCTOR PATIENT BODY FROM [facility].CALL MADE TO [facility] SPOKE TO YOLANDE GOT .TOLD OK TO RELEASE BODY TO [facility] .[employer] NOT FORWARDING FOR ORGAN DONATION.GOT CALL BACK FROM [employer] SPOKE TO BOO GOT .OK TO RELEASE BODY.NURSING METEOROLOGIST IN CHARGE MADE AWARE. PER JAME RESPONSIBLE GREEN PARTY PATIENT IS NOT AN ORGAN DONOR. UPDATED HER WITH INFORMATION REGARDING CERTIFICATE AND ANSWERED ALL HER QUESTIONS.
--- NOTE | 2018-10-25 18:51 | NUR ---
ASSOCIATE PROFESSOR NOTE PATIENT CHART HANDED OVER TO PM EBD SPECIAL EDUCATION TEACHER ELIZABETH.BODY WILL BE TRANSFERRED TO [facility].WILL ENDORSE TO PM NURSE FOR ARNOL.AFTER CARE DONE.
--- NOTE | 2018-10-25 19:30 | NUR ---
PT TRANSPORTED BY SECURITY AND CHARGE NURSE ROSEMARIE HUERTA FROM ICU TO [facility]. CORPORATE DIRECTOR NOTIFIED.
== END 2018-10-25 19:07 | disposition expired | DRG 870 ==
LOC: ER 16:15 → ICU 20:34
PROVIDERS: ADMIT Nurse Practitioner Acute Care; ATTEND Nurse Practitioner Acute Care
PROC: 5A1955Z Respiratory Ventilation, Greater than 96 Consecutive Hours (ICD-10-PCS; principal; 2018-10-17)
PROC: 0BH17EZ Insertion of Endotracheal Airway into Trachea, Via Natural or Artificial Opening (ICD-10-PCS; 2018-10-17)
PROC: 30233N1 Transfusion of Nonautologous Red Blood Cells into Peripheral Vein, Percutaneous Approach (ICD-10-PCS; 2018-10-23)
PROC: 05H533Z Insertion of Infusion Device into Right Subclavian Vein, Percutaneous Approach (ICD-10-PCS; 2018-10-23)
PROC: B546ZZA Ultrasonography of Right Subclavian Vein, Guidance (ICD-10-PCS; 2018-10-23)
DX: A41.9 Sepsis, unspecified organism (principal); N17.0 Acute kidney failure with tubular necrosis; G93.41 Metabolic encephalopathy; J15.6 Pneumonia due to other Gram-negative bacteria; J96.01 Acute respiratory failure with hypoxia; J96.21 Acute and chronic respiratory failure with hypoxia; E87.2 Acidosis; N39.0 Urinary tract infection, site not specified; F03.90 Unspecified dementia, unspecified severity, without behavioral disturbance, psychotic disturbance, mood disturbance, and anxiety; E03.9 Hypothyroidism, unspecified; D63.8 Anemia in other chronic diseases classified elsewhere; E83.42 Hypomagnesemia; E86.0 Dehydration; Z79.82 Long term (current) use of aspirin; Z79.899 Other long term (current) drug therapy; K21.9 Gastro-esophageal reflux disease without esophagitis; I50.9 Heart failure, unspecified; Z66 Do not resuscitate; Y95 Nosocomial condition; Z93.1 Gastrostomy status; Z86.14 Personal history of Methicillin resistant Staphylococcus aureus infection; Z51.5 Encounter for palliative care; I11.0 Hypertensive heart disease with heart failure; F20.9 Schizophrenia, unspecified; E83.39 Other disorders of phosphorus metabolism; E87.6 Hypokalemia; F09 Unspecified mental disorder due to known physiological condition; I25.10 Atherosclerotic heart disease of native coronary artery without angina pectoris; R65.20 Severe sepsis without septic shock; S30.820A Blister (nonthermal) of lower back and pelvis, initial encounter; L89.120 Pressure ulcer of left upper back, unstageable; L89.150 Pressure ulcer of sacral region, unstageable; L98.9 Disorder of the skin and subcutaneous tissue, unspecified
CPT/HCPCS: 31720; 36415; 36569; 36600; 71045-TC; 74018; 80048-TC; 80053-TC; 80061-TC; 80076-TC; 80150; 80202-TC; 81000-TC; 82247-TC; 82248-TC; 82803-TC; 83605-TC; 83735-TC; 83880; 84100-TC; 84478-TC; 84484-TC; 85025-TC; 85027-TC; 85730-TC; 86850-TC; 86921-TC; 87040-TC; 87070-TC; 87081-TC; 87086-TC; 87186-TC; 93307-TC; 94002-TC; 94003-TC; 94760-TC; 94799-TC; A4216; C1751; G0378; J0278; J0692; J1650; J1940; J1956; J2060; J2185; J2270; J2274; J2543; J3370; J3475; J3480; J3490; J7030; J7042; J7050; J7060; P9016-BL